=== PATIENT | female | born 1965 ===

== ENCOUNTER → 2018-05-01 12:05 | Outpatient (CLI) | payer OTHER, SELFPAY ==
[2018-05-01 12:36] LABS: Add Manual Diff / Slide Review NO; Basophils Percent Auto 1.3 % (0-2); Eosinophils Percent Auto 6.8 % (2-4); Hematocrit 38.7 % (36-46); Hemoglobin 12.8 g/dL (12.0-16.0); Lymphocytes Percent Auto 32.8 % (25-40); Mean Corpuscular HGB Conc 33.1 % (30-36); Mean Corpuscular Hemoglobin 26.3 PG (26-34); Mean Corpuscular Volume 79.3 fL (80-100); Monocytes Percent Auto 12.6 % (3-14); Neutrophils Absolute Auto 2400 /uL (3000-5900); Neutrophils Percent Auto 46.5 % (50-75); Platelet Count 229 X10^3/uL (150-400); Red Blood Cell Count 4.88 X10^6/uL (4.0-5.2); Red Cell Distribution Width 16.4 % (11.6-14.8); White Blood Cell Count 5.3 X10^3/uL (4.5-11.0)
[2018-05-01 13:00] LABS: Erythrocyte Sedimentation Rate 10 MM/HR (0-20)
[2018-05-01 13:04] LABS: Alanine Aminotransferase 29 IU/L (9-52); Albumin Globulin Ratio 1.4 (1.0-2.8); Alkaline Phosphatase 75 U/L (38-126); Aspartate Aminotransferase 23 IU/L (14-36); BUN Creatinine Ratio 18.8 (6-22); Bilirubin Total 0.5 mg/dL (0.2-1.3); Blood Urea Nitrogen 15 mg/dL (7-17); C-Reactive Protein Quant < 0.5 mg/dL (<1.0); Carbon Dioxide 33 mmol/L (22-32); Chloride 101 mmol/L (98-107); Estimated Glomerular Filt Rate > 60.0 mL/min (>60); Globulin 2.9 g/dL (1.7-4.1); Glucose 95 mg/dL (70-100); HEMOLYSIS < 15 (0-50); Potassium 4.1 mmol/L (3.4-5.1); Sodium 140 mmol/L (137-145); Total Protein 6.9 g/dL (6.3-8.2)
[2018-05-01 13:28] LABS: Thyroid Stimulating Hormone 0.02 uIU/mL (0.47-4.68)
[2018-05-05 23:19] LABS: ANA Screen NEGATIVE (Negative); DNA Antibody Crithidia IFA NEGATIVE (Negative); Rheumatoid Factor <14 IU/mL; Sjogren Antiboday SS-A <1.0 NEG AI (<1.0 NEGATIVE); Sjogren Antiboday SS-B <1.0 NEG AI (<1.0 NEGATIVE); Sm Antibody <1.0 NEG AI (<1.0 NEGATIVE); Sm/RNP Antibody <1.0 NEG AI (<1.0 NEGATIVE)
== END ==
PROVIDERS: PCP Family Medicine; Visit Provider Family Medicine
DX: R42 Dizziness and giddiness (principal)
CPT/HCPCS: 36415; 80053; 84443; 85025; 85651; 86038; 86140; 86430

== ENCOUNTER → 2018-05-06 06:59 | Outpatient (CLI) | payer OTHER, SELFPAY ==
--- NOTE | 2018-05-06 07:01 | DI.US.S_ITS ---
PROCEDURE: US CAROTID DOPPLER BI INDICATIONS: DIZZINESS TECHNIQUE: Color and pulse Doppler interrogation was performed of both carotid systems, with image documentation and velocity measurements. COMPARISON: None. FINDINGS: Stenosis calculations are based on SRU (Society of Radiologists in Ultrasound) criteria. Right side: Brachial blood pressure: 151/100 mm Hg. Common carotid artery peak systolic velocity: 83 cm/sec. Internal carotid artery peak systolic velocity: 79 cm/sec. Internal carotid artery end diastolic velocity: 32 cm/sec. External carotid artery peak systolic velocity: 87 cm/sec. ICA/CCA peak systolic ratio: 0.93. Craig scale imaging description: Normal Percent internal carotid artery stenosis: None. Vertebral artery: Flow direction is antegrade. Left side: Brachial blood pressure: 140/100 mm Hg. Common carotid artery peak systolic velocity: 50 cm/sec. Internal carotid artery peak systolic velocity: 86 cm/sec. Internal carotid artery end diastolic velocity: 44 cm/sec. External carotid artery peak systolic velocity: Not seen ICA/CCA peak systolic ratio: 1.72. Craig scale imaging description: Small echogenic plaques Percent internal carotid artery stenosis: Less than 50%. Vertebral artery: Flow direction is antegrade. IMPRESSION: 1. Hypertension 2. Normal right carotid bifurcation. 3. Minimal plaque left ICA with less than 50% stenosis. 4. Left external carotid artery is not visualized and could be occluded. Dictated by: Luis Trujillo M.D. on 05/06/2018 at 8:15 Approved by: Luis Trujillo M.D. on 05/06/2018 at 8:19
== END ==
PROVIDERS: PCP Family Medicine; Visit Provider Family Medicine
DX: R42 Dizziness and giddiness (principal); I10 Essential (primary) hypertension
CPT/HCPCS: 93880

== ENCOUNTER → 2018-06-14 11:01 | Outpatient (CLI) | payer OTHER, SELFPAY ==
[2018-06-14 13:14] LABS: Thyroid Stimulating Hormone 0.18 uIU/mL (0.47-4.68)
== END ==
PROVIDERS: PCP Family Medicine; Visit Provider Family Medicine
DX: E03.9 Hypothyroidism, unspecified (principal)
CPT/HCPCS: 36415; 84443

== ENCOUNTER → 2018-07-23 07:54 | Outpatient (CLI) | payer OTHER, SELFPAY ==
[2018-07-23 09:33] LABS: Thyroid Stimulating Hormone 0.61 uIU/mL (0.47-4.68)
== END ==
PROVIDERS: PCP Family Medicine; Visit Provider Family Medicine
DX: E03.9 Hypothyroidism, unspecified (principal)
CPT/HCPCS: 36415; 84443

== ENCOUNTER → 2018-08-21 09:00 | Outpatient (CLI) | payer OTHER, SELFPAY | PROVIDERS: PCP Family Medicine | DX: Z23 Encounter for immunization (principal) | CPT/HCPCS: 90471; 90686 ==

== ENCOUNTER 2018-12-10 16:15 | Emergency (ER) | payer OTHER, SELFPAY ==
[2018-12-10 16:25] VITALS: BP 173/104; PULSE 87; RESP 19; TEMP 36.1; O2SAT 98
--- NOTE | 2018-12-10 16:34 | ED.GENADULT ---
HPI - General Adult <Tejinder NavarroMINH - Last Filed: 12/10/18 21:47> General Chief complaint: Hypertension Stated complaint: HEADACHE JAW PAIN Time Seen by Provider: 12/10/18 16:16 Source: patient Mode of arrival: ambulatory Limitations: no limitations History of Present Illness HPI narrative: 53-year-old female with history of tongue cancer and hypertension here for complaint of having headache over the past couple of days. She also reports having left jaw pain. She reports the headache as a pounding headache she also reports having some nausea however no vomiting she is states that she is able to tolerate p.o. intake. She denies any fevers however she does not have a thermometer and she does states she has had chills. She reports of having a somewhat having a little bit of chest pain into the left ribcage area that has been on off for the past couple days as well. She denies any cough. She does report having generalized malaise and body aches. She reports that she has a friend that was sick last week with similar symptoms. She took 1 of her pain medications prior to arrival and states that it did reduce her headache some. She reports that she had some labs drawn that were ordered by her primary care provider today which included a CBC CMP and a TSH. She denies any shortness of breath. She is ambulatory to the emergency room. Related Data Previous Rx's Medication Instructions Recorded Disabled Parking Permit . #1 11/02/16 [ENSURE ] 4 scoopful PO TID #10 can 12/21/16 clonazepam 0.5 mg PO HS #90 tab 05/01/17 betamethasone dipropionate 0 TOPICAL Q DAY #15 gm 05/02/17 furosemide [Lasix] 20 mg PO QDAY #30 tab 10/29/17 pantoprazole [Protonix] 40 mg PO QDAY #90 tab 02/14/18 buspirone 15 mg tablet 15 mg PO BID #180 tab 03/19/18 dexamethasone 2 mg tablet See Rx Instructions PO Q6H #30 tab 04/15/18 ibuprofen 600 mg PO BID PRN #180 tab 06/10/18 levothyroxine 88 mcg tablet 88 mcg PO DAILY #90 tab 06/18/18 duloxetine 30 mg capsule,delayed 30 mg PO DAILY #90 cap 07/25/18 release metoprolol succinate [Toprol XL] 0 PO BID #90 tab 10/09/18 hydrocodone 7.5 mg-acetaminophen 15 ml PO Q4HP PRN #300 ml 11/07/18 325 mg/15 mL oral solution Allergies Allergy/AdvReac Type Severity Reaction Status Date / Time citalopram [CITALOPRAM] Allergy Severe CHEST PAIN Verified 05/29/18 12:06 propranolol [PROPRANOLOL] Allergy Severe CHEST PAIN Verified 05/29/18 12:06 AND HEADACHE succinylcholine Allergy Severe rhabdomyolo Verified 05/29/18 12:06 [SUCCINYLCHOLINE] sis DEBORA Inhibitors Allergy Mild COUGHING Verified 05/29/18 12:06 [DEBORA INHIBITORS] amoxicillin [AMOXICILLIN] Allergy Mild RASH Verified 05/29/18 12:06 lisinopril [LISINOPRIL] Allergy Mild COUGHING Verified 05/29/18 12:06 oxycodone [OXYCODONE] Allergy Mild headache Verified 05/29/18 12:06 paroxetine [PAROXETINE] Allergy Mild SEVERE Verified 05/29/18 12:06 HEADACHE Penicillins [PENICILLINS] Allergy Mild RASH Verified 05/29/18 12:06 pravastatin [PRAVASTATIN] Allergy Mild MUSCLE Verified 05/29/18 12:06 WEAKNESS prednisone [PREDNISONE] Allergy Mild PROJECTILE Verified 05/29/18 12:06 VOMITING sertraline [SERTRALINE] Allergy Mild WT GAIN Verified 05/29/18 12:06 simvastatin [SIMVASTATIN] Allergy Mild LEG PAIN Verified 05/29/18 12:06 Sulfa (Sulfonamide Allergy Mild JOINT PAIN Verified 05/29/18 12:06 Antibiotics) UPPER EXT. [SULFA (SULFONAMIDE ANTIBIOTICS)] Review of Systems <MINH Espino - Last Filed: 12/10/18 21:47> Constitutional Reports chills, Denies fatigue and Reports malaise Eyes Denies change in vision, Denies eye discharge, Denies irritation and Denies loss of vision ENT Ears, Nose, Mouth, and Throat: Denies change in voice, Denies neck pain and Denies sore throat Cardiovascular Reports chest pain, Denies dyspnea and Denies dyspnea on exertion Respiratory Denies cough, Denies dyspnea, Denies dyspnea on exertion and Denies wheezing Gastrointestinal Gastrointestinal: Denies abdominal pain, Denies change in bowel habits, Denies diarrhea, Reports nausea and Denies vomiting Genitourinary Denies hematuria, Denies flank pain, Denies urinary incontinence and Denies urinary urgency Musculoskeletal Denies neck pain Integumentary/Breasts Denies pruritus, Denies erythema, Denies rash and Denies wounds Neurologic Denies confusion and Denies loss of vision Psychiatric Denies anxiety, Denies confusion, Denies depression, Denies homicidal ideation and Denies suicidal ideation Endocrine Denies fatigue and Denies flushing Hematologic/Lymphatic Denies easy bruising Allergic/Immunologic Denies wheezing PFSH <MINH Espino - Last Filed: 12/10/18 21:47> Medical History GERD (gastroesophageal reflux disease) (Chronic) Hypertension (Chronic) Hypothyroidism (Chronic) Recurrent tongue cancer (Resolved 2009) Tongue cancer (Resolved 1997) Surgical History History of oral surgery (Resolved 1997) History of oral surgery (Resolved 2009) Status post hysterectomy (Resolved 08/2009) Family History Brother Diabetes mellitus CAD (coronary artery disease) Grandfather Diabetes mellitus Mother Diabetes mellitus CAD (coronary artery disease) Family History Brother Diabetes mellitus CAD (coronary artery disease) Grandfather Diabetes mellitus Mother Diabetes mellitus CAD (coronary artery disease) Exam <MINH Espino - Last Filed: 12/10/18 21:47> Initial Vital Signs Initial Vital Signs: Vital Signs Temperature 97.0 F L 12/10/18 16:25 Pulse Rate 87 12/10/18 16:25 Respiratory Rate 19 12/10/18 16:25 Blood Pressure 173/104 H 12/10/18 16:25 Pulse Oximetry 98 12/10/18 16:25 Const General: cooperative and well developed Nutritional Appearance: well nourished Orientation: alert, awake, oriented x3 and not confused HENMT Ears: external ears normal and TM's normal bilaterally Nose: TMJ nontender and No TMJ clicking Mouth: No oral mucosae normal (Mucous membrane pink and moist surgical changes to oropharynx) and moist mucous membranes Throat: posterior oropharynx normal Eyes Conjunctivae: conjunctivae normal Sclera: sclerae normal Pupils: PERRL EOM: EOM intact bilaterally Resp Effort & Inspection: normal respiratory effort, able to speak in complete sentences, no respiratory distress and no use of accessory muscles Auscultation: clear to auscultation bilaterally, no rales, no rhonchi and no wheezes Cardio Rate: regular rate Rhythm: regular rhythm Heart Sounds: no click, no gallops, no murmurs and no rubs GI Inspection: non-distended Palpation: soft, no hepatosplenomegaly, No guarding, No pulsatile mass and No tender Auscultation: normal bowel sounds Neuro General: alert, oriented x3, gait normal and no focal motor deficits Speech: speech normal <Matt Phillips DO - Last Filed: 12/11/18 18:20> Initial Vital Signs Initial Vital Signs: Vital Signs Temperature 97.0 F L 12/10/18 16:25 Pulse Rate 87 12/10/18 16:25 Respiratory Rate 19 12/10/18 16:25 Blood Pressure 173/104 H 12/10/18 16:25 Pulse Oximetry 98 12/10/18 16:25 Course <MINH Espino - Last Filed: 12/10/18 21:47> Orders Ordered: Discontinued Medications Sodium Chloride (Normal Saline 0.9%) 1,000 mls @ 1,000 mls/hr IV BOLUS ONE Stop: 12/10/18 17:44 Last Admin: 12/10/18 17:04 Dose: Not Given Ketorolac Tromethamine (Toradol) 30 mg IV NOW ONE Stop: 12/10/18 16:48 Last Admin: 12/10/18 17:04 Dose: Not Given Ondansetron HCl (Zofran) 4 mg IV NOW ONE Stop: 12/10/18 16:48 Last Admin: 12/10/18 17:05 Dose: Not Given Vital Signs - 8 hr 12/10/18 16:25 12/10/18 17:01 12/10/18 18:07 Temperature 97.0 F L Pulse Rate 87 78 81 Respiratory Rate 19 14 Blood Pressure 173/104 H Blood Pressure [Left Arm] 154/101 H 143/98 H Pulse Oximetry 98 99 97 <Matt Phillips DO - Last Filed: 12/11/18 18:20> Orders Ordered: Discontinued Medications Sodium Chloride (Normal Saline 0.9%) 1,000 mls @ 1,000 mls/hr IV BOLUS ONE Stop: 12/10/18 17:44 Last Admin: 12/10/18 17:04 Dose: Not Given Ketorolac Tromethamine (Toradol) 30 mg IV NOW ONE Stop: 12/10/18 16:48 Last Admin: 12/10/18 17:04 Dose: Not Given Ondansetron HCl (Zofran) 4 mg IV NOW ONE Stop: 12/10/18 16:48 Last Admin: 12/10/18 17:05 Dose: Not Given Vital Signs - 8 hr 12/10/18 16:25 12/10/18 17:01 12/10/18 18:07 Temperature 97.0 F L Pulse Rate 87 78 81 Respiratory Rate 19 14 Blood Pressure 173/104 H Blood Pressure [Left Arm] 154/101 H 143/98 H Pulse Oximetry 98 99 97 Medical Decision Making <MINH Espino - Last Filed: 12/10/18 21:47> Lab Data Lab Results 12/10/18 12/10/18 Range/Units 17:00 17:20 Total Creatine Kinase 86 (30-135) U/L CK-MB (CK-2) TNP CK-MB (CK-2) Rel Index TNP Troponin I < 0.012 (0.01-0.034) ng/mL Influenza A & B (PCR) Negative (Negative) Urine Dip Bedside Urine Glucose Negative Bedside Urine Bilirubin - Negative Bedside Urine Ketone - Negative Urine Specific [place] 1.030 Bedside Urine Occult Blood - Negative Bedside Urine pH 6.0 Bedside Urine Protein - Negative Bedside Urine Urobilinogen - Negative Bedside Urine Nitrite - Negative Bedside Urine Leukocytes - Negative Esterase Point of care testing: Urine Dip Bedside Urine Glucose Negative Bedside Urine Bilirubin - Negative Bedside Urine Ketone - Negative Urine Specific [place] 1.030 Bedside Urine Occult Blood - Negative Bedside Urine pH 6.0 Bedside Urine Protein - Negative Bedside Urine Urobilinogen - Negative Bedside Urine Nitrite - Negative Bedside Urine Leukocytes - Negative Esterase Imaging Data Chest x-ray: Radiologist's impression: [address] [address] XRay Report Signed Patient: Naye Muñoz RMR#: [id number] : 1965Acct:[id number] Age/Sex: 53 / FDate of Service: 12/10/18 Loc: ED Accession Number: [id number] Procedure: XR chest 1V Ordering Provider: Tejinder Navarro PROCEDURE: XR CHEST 1V INDICATIONS: Jaw pain and chest pain TECHNIQUE: One view of the chest was acquired. COMPARISON: [facility], CR, CHEST 2 VIEW, 03/15/2017, 12:28. FINDINGS: Surgical changes and devices: Surgical clips at the base of the left neck. Left breast lobectomy clips. Lungs and pleura: Lungs are clear. No pleural effusions or pneumothorax. Mediastinum: Mediastinal contours appear normal. Heart size is normal. Bones and chest wall: No suspicious bony lesions. Overlying soft tissues appear unremarkable. IMPRESSION: No acute process. Dictated by: Alysha Dotson M.D. on 12/10/2018 at 17:34 Approved by: Alysha Dotson M.D. on 12/10/2018 at 17:35 CT scan - head: Radiologist's impression: [place] [address] CT Scan Report Signed Patient: Naye Muñoz RMR#: [id number] : 1965Acct:[id number] Age/Sex: 53 / FDate of Service: 12/10/18 Loc: ED Accession Number: [id number] Procedure: CT head/brain wo con Ordering Provider: Tejinder Navarro PROCEDURE: CT HEAD/BRAIN WO CON INDICATIONS: Headache and jaw pain TECHNIQUE: Noncontrast 4.5 mm thick angled axial sections acquired from the foramen magnum to the vertex, with coronal and sagittal reformats. For radiation dose reduction, the following was used: automated exposure control, adjustment of mA and/or kV according to patient size. COMPARISON: [facility], CT, HEAD WITHOUT CONTRAST, 07/27/2015, 16:09. FINDINGS: Image quality: Excellent. CSF spaces: Basal cisterns are patent. No extra-axial fluid collections. Ventricles are normal in size and shape. Brain: No midline shift. No intracranial masses or hemorrhage. Craig-white matter interface is normal. Skull and face: Calvarium and visualized facial bones are intact, without suspicious lesions. Sinuses: Visualized sinuses and mastoids are clear. IMPRESSION: No CT evidence of acute intracranial process. Dictated by: Alysha Dotson M.D. on 12/10/2018 at 17:36 Approved by: Alysha Dotson M.D. on 12/10/2018 at 17:37 ECG Data Interpretation: EKG shows normal sinus rhythm with no ST elevation or depression. No ectopy. Ventricular rate of 85. Pr interval of 166. QRS duration of 88. QTC of 405. MDM Narrative Medical decision making narrative: CT of the head was obtained was negative for any acute findings. Chest x-ray was also obtained was also negative for any acute findings. EKG shows sinus rhythm with no ST elevation or depression. No ectopy. CBC and Chem panel was obtained prior to arrival and were unremarkable. TSH was also obtained and was also unremarkable. Urinalysis was negative for urinary tract infection. Cardiac enzymes were obtained were normal. Influenza swab was obtained was negative. Blood pressure was elevated today in the emergency room. Most likely is secondary to headache however will have follow-up with primary care provider for further evaluation of a medication regimen. Will treat conservatively as viral illness at this point with [id number] Tylenol and plenty of fluids. Follow up with primary care provider next couple days for re-evaluation. <Matt Phillips DO - Last Filed: 12/11/18 18:20> Lab Data Lab Results 12/10/18 12/10/18 Range/Units 17:00 17:20 Total Creatine Kinase 86 (30-135) U/L CK-MB (CK-2) TNP CK-MB (CK-2) Rel Index TNP Troponin I < 0.012 (0.01-0.034) ng/mL Influenza A & B (PCR) Negative (Negative) Urine Dip Bedside Urine Glucose Negative Bedside Urine Bilirubin - Negative Bedside Urine Ketone - Negative Urine Specific [place] 1.030 Bedside Urine Occult Blood - Negative Bedside Urine pH 6.0 Bedside Urine Protein - Negative Bedside Urine Urobilinogen - Negative Bedside Urine Nitrite - Negative Bedside Urine Leukocytes - Negative Esterase Point of care testing: Urine Dip Bedside Urine Glucose Negative Bedside Urine Bilirubin - Negative Bedside Urine Ketone - Negative Urine Specific [place] 1.030 Bedside Urine Occult Blood - Negative Bedside Urine pH 6.0 Bedside Urine Protein - Negative Bedside Urine Urobilinogen - Negative Bedside Urine Nitrite - Negative Bedside Urine Leukocytes - Negative Esterase Discharge Plan Departure Patient Disposition: Home Clinical Impression: Viral illness Discharge Date/Time: 12/10/18 18:25 Interventions: ED Discharge Assessment Last Done: 12/10/18 18:24 Instructions: DI for Viral Syndrome Activity Restrictions/Additional Instructions: Laboratory results today and imaging were unremarkable. EKG today was normal. Signs and symptoms presents as a viral illness. Use Tylenol as needed for discomfort and headache. Plenty of fluids and rest. Follow up with primary care provider next few days for re-evaluation. Blood pressure was elevated today this may be secondary to discomfort however discuss with primary care provider within eye changes need to be made to medication regimen. For any worsening symptoms return to the emergency room. Prescriptions: No Action Disabled Parking Permit . Qty: 1 RF: 0 [ENSURE ] 4 scoopful PO TID Qty: 10 RF: 11 clonazepam 0.5 MG tablet 0.5 mg PO HS Qty: 90 RF: 5 betamethasone dipropionate 0.05 % ointment Topical Q DAY Qty: 15 RF: 3 furosemide [Lasix] 20 MG tablet 20 mg PO QDAY Qty: 30 RF: 5 pantoprazole [Protonix] 40 mg tablet,delayed release (DR/EC) 40 mg PO QDAY Qty: 90 RF: 3 buspirone 15 mg tablet 15 mg PO BID Qty: 180 RF: 3 dexamethasone 2 mg tablet See Rx Instructions PO Q6H Qty: 30 RF: 1 ibuprofen 600 mg tablet 600 mg PO BID PRNQty: 180 RF: 3 levothyroxine 88 mcg tablet 88 mcg PO DAILY Qty: 90 RF: 3 duloxetine 30 mg capsule,delayed release(DR/EC) 30 mg PO DAILY Qty: 90 RF: 3 metoprolol succinate [Toprol XL] 25 mg tablet extended release 24 hr PO BID Qty: 90 RF: 6 hydrocodone-acetaminophen 7.5-325 mg/15 mL solution 15 ml PO Q4HP PRN (Reason: pain) Qty: 300 RF: 0 Referrals: Shiv Slaughter MD [Primary Care Provider] - <Matt Phillips DO - Last Filed: 12/11/18 18:20> Cosign ED Attending Veeature Attestation: I was available for consultation during this patient's emergency department encounter
--- NOTE | 2018-12-10 16:45 | DI.CT.S_ITS ---
PROCEDURE: CT HEAD/BRAIN WO CON INDICATIONS: Headache and jaw pain TECHNIQUE: Noncontrast 4.5 mm thick angled axial sections acquired from the foramen magnum to the vertex, with coronal and sagittal reformats. For radiation dose reduction, the following was used: automated exposure control, adjustment of mA and/or kV according to patient size. COMPARISON: [facility], CT, HEAD WITHOUT CONTRAST, 07/27/2015, 16:09. FINDINGS: Image quality: Excellent. CSF spaces: Basal cisterns are patent. No extra-axial fluid collections. Ventricles are normal in size and shape. Brain: No midline shift. No intracranial masses or hemorrhage. Craig-white matter interface is normal. Skull and face: Calvarium and visualized facial bones are intact, without suspicious lesions. Sinuses: Visualized sinuses and mastoids are clear. IMPRESSION: No CT evidence of acute intracranial process. Dictated by: Alysha Dotson M.D. on 12/10/2018 at 17:36 Approved by: Alysha Dotson M.D. on 12/10/2018 at 17:37
--- NOTE | 2018-12-10 16:45 | DI.RAD.S_ITS ---
PROCEDURE: XR CHEST 1V INDICATIONS: Jaw pain and chest pain TECHNIQUE: One view of the chest was acquired. COMPARISON: [facility], , CHEST 2 VIEW, 03/15/2017, 12:28. FINDINGS: Surgical changes and devices: Surgical clips at the base of the left neck. Left breast lobectomy clips. Lungs and pleura: Lungs are clear. No pleural effusions or pneumothorax. Mediastinum: Mediastinal contours appear normal. Heart size is normal. Bones and chest wall: No suspicious bony lesions. Overlying soft tissues appear unremarkable. IMPRESSION: No acute process. Dictated by: Alysha Dotson M.D. on 12/10/2018 at 17:34 Approved by: Alysha Dotson M.D. on 12/10/2018 at 17:35
[2018-12-10 17:01] VITALS: BP 154/101; PULSE 78; O2SAT 99
--- NOTE | 2018-12-10 17:05 | PC.NURSE ---
Pt declining IV start after 2 attempts. Provider aware.
--- NOTE | 2018-12-10 17:21 | ED_ITS ---
HPI - General Adult <Tejinder NavarroMINH - Last Filed: 12/10/18 21:47> General Chief complaint: Hypertension Stated complaint: HEADACHE JAW PAIN Time Seen by Provider: 12/10/18 16:16 Source: patient Mode of arrival: ambulatory Limitations: no limitations History of Present Illness HPI narrative: 53-year-old female with history of tongue cancer and hypertension here for complaint of having headache over the past couple of days. She also reports having left jaw pain. She reports the headache as a pounding headache she also reports having some nausea however no vomiting she is states that she is able to tolerate p.o. intake. She denies any fevers however she does not have a thermometer and she does states she has had chills. She reports of having a somewhat having a little bit of chest pain into the left ribcage area that has been on off for the past couple days as well. She denies any cough. She does report having generalized malaise and body aches. She reports that she has a f riend that was sick last week with similar symptoms. She took 1 of her pain medications prior to arrival and states that it did reduce her headache some. She reports that she had some labs drawn that were ordered by her primary care provider today which included a CBC CMP and a TSH. She denies any shortness of breath. She is ambulatory to the emergency room. Related Data Previous Rx's Medication Instructions Recorded Disabled Parking Permit . #1 11/02/16 [ENSURE ] 4 scoopful PO TID #10 can 12/21/16 clonazepam 0.5 mg PO HS #90 tab 05/01/17 betamethasone dipropionate 0 TOPICAL Q DAY #15 gm 05/02/17 furosemide [Lasix] 20 mg PO QDAY #30 tab 10/29/17 pantoprazole [Protonix] 40 mg PO QDAY #90 tab 02/14/18 buspirone 15 mg tablet 15 mg PO BID #180 tab 03/19/18 dexamethasone 2 mg tablet See Rx Instructions PO Q6H #30 tab 04/15/18 ibuprofen 600 mg PO BID PRN #180 tab 06/10/18 levothyroxine 88 mcg tablet 88 mcg PO DAILY #90 tab 06/18/18 duloxetine 30 mg capsule,delayed 30 mg PO DAILY #90 cap 07/25/18 release metoprolol succinate [Toprol XL] 0 PO BID #90 tab 10/09/18 hydrocodone 7.5 mg-acetaminophen 15 ml PO Q4HP PRN #300 ml 11/07/18 325 mg/15 mL oral solution Allergies Allergy/AdvReac Type Severity Reaction Status Date / Time citalopram [CITALOPRAM] Allergy Severe CHEST PAIN Verified 05/29/18 12:06 propranolol [PROPRANOLOL] Allergy Severe CHEST PAIN Verified 05/29/18 12:06 AND HEADACHE succinylcholine Allergy Severe rhabdomyolo Verified 05/29/18 12:06 [SUCCINYLCHOLINE] sis DEBORA Inhibitors Allergy Mild COUGHING Verified 05/29/18 12:06 [DEBORA INHIBITORS] amoxicillin [AMOXICILLIN] Allergy Mild RASH Verified 05/29/18 12:06 lisinopril [LISINOPRIL] Allergy Mild COUGHING Verified 05/29/18 12:06 oxycodone [OXYCODONE] Allergy Mild headache Verified 05/29/18 12:06 paroxetine [PAROXETINE] Allergy Mild SEVERE Verified 05/29/18 12:06 HEADACHE Penicillins [PENICILLINS] Allergy Mild RASH Verified 05/29/18 12:06 pravastatin [PRAVASTATIN] Allergy Mild MUSCLE Verified 05/29/18 12:06 WEAKNESS prednisone [PREDNISONE] Allergy Mild PROJECTILE Verified 05/29/18 12:06 VOMITING sertraline [SERTRALINE] Allergy Mild WT GAIN Verified 05/29/18 12:06 simvastatin [SIMVASTATIN] Allergy Mild LEG PAIN Verified 05/29/18 12:06 Sulfa (Sulfonamide Allergy Mild JOINT PAIN Verified 05/29/18 12:06 Antibiotics) UPPER EXT. [SULFA (SULFONAMIDE ANTIBIOTICS)] Review of Systems <MINH Espino - Last Filed: 12/10/18 21:47> Constitutional Reports chills, Denies fatigue and Reports malaise Eyes Denies change in vision, Denies eye discharge, Denies irritation and Denies loss of vision ENT Ears, Nose, Mouth, and Throat: Denies change in voice, Denies neck pain and Denies sore throat Cardiovascular Reports chest pain, Denies dyspnea and Denies dyspnea on exertion Respiratory Denies cough, Denies dyspnea, Denies dyspnea on exertion and Denies wheezing Gastrointestinal Gastrointestinal: Denies abdominal pain, Denies change in bowel habits, Denies diarrhea, Reports nausea and Denies vomiting Genitourinary Denies hematuria, Denies flank pain, Denies urinary incontinence and Denies urinary urgency Musculoskeletal Denies neck pain Integumentary/Breasts Denies pruritus, Denies erythema, Denies rash and Denies wounds Neurologic Denies confusion and Denies loss of vision Psychiatric Denies anxiety, Denies confusion, Denies depression, Denies homicidal ideation and Denies suicidal ideation Endocrine Denies fatigue and Denies flushing Hematologic/Lymphatic Denies easy bruising Allergic/Immunologic Denies wheezing PFSH <MINH Espino - Last Filed: 12/10/18 21:47> Medical History GERD (gastroesophageal reflux disease) (Chronic) Hypertension (Chronic) Hypothyroidism (Chronic) Recurrent tongue cancer (Resolved 2009) Tongue cancer (Resolved 1997) Surgical History History of oral surgery (Resolved 1997) History of oral surgery (Resolved 2009) Status post hysterectomy (Resolved 08/2009) Family History Brother Diabetes mellitus CAD (coronary artery disease) Grandfather Diabetes mellitus Mother Diabetes mellitus CAD (coronary artery disease) Family History Brother Diabetes mellitus CAD (coronary artery disease) Grandfather Diabetes mellitus Mother Diabetes mellitus CAD (coronary artery disease) Exam <MINH Espino - Last Filed: 12/10/18 21:47> Initial Vital Signs Initial Vital Signs: Vital Signs Temperature 97.0 F L 12/10/18 16:25 Pulse Rate 87 12/10/18 16:25 Respiratory Rate 19 12/10/18 16:25 Blood Pressure 173/104 H 12/10/18 16:25 Pulse Oximetry 98 12/10/18 16:25 Const General: cooperative and well developed Nutritional Appearance: well nourished Orientation: alert, awake, oriented x3 and not confused HENMT Ears: external ears normal and TM's normal bilaterally Nose: TMJ nontender and No TMJ clicking Mouth: No oral mucosae normal (Mucous membrane pink and moist surgical changes to oropharynx) and moist mucous membranes Throat: posterior oropharynx normal Eyes Conjunctivae: conjunctivae normal Sclera: sclerae normal Pupils: PERRL EOM: EOM intact bilaterally Resp Effort & Inspection: normal respiratory effort, able to speak in complete sentences, no respiratory distress and no use of accessory muscles Auscultation: clear to auscultation bilaterally, no rales, no rhonchi and no wheezes Cardio Rate: regular rate Rhythm: regular rhythm Heart Sounds: no click, no gallops, no murmurs and no rubs GI Inspection: non-distended Palpation: soft, no hepatosplenomegaly, No guarding, No pulsatile mass and No tender Auscultation: normal bowel sounds Neuro General: alert, oriented x3, gait normal and no focal motor deficits Speech: speech normal <Matt Phillips DO - Last Filed: 12/11/18 18:20> Initial Vital Signs Initial Vital Signs: Vital Signs Temperature 97.0 F L 12/10/18 16:25 Pulse Rate 87 12/10/18 16:25 Respiratory Rate 19 12/10/18 16:25 Blood Pressure 173/104 H 12/10/18 16:25 Pulse Oximetry 98 12/10/18 16:25 Course <MINH Espino - Last Filed: 12/10/18 21:47> Orders Ordered: Discontinued Medications Sodium Chloride (Normal Saline 0.9%) 1,000 mls @ 1,000 mls/hr IV BOLUS ONE Stop: 12/10/18 17:44 Last Admin: 12/10/18 17:04 Dose: Not Given Ketorolac Tromethamine (Toradol) 30 mg IV NOW ONE Stop: 12/10/18 16:48 Last Admin: 12/10/18 17:04 Dose: Not Given Ondansetron HCl (Zofran) 4 mg IV NOW ONE Stop: 12/10/18 16:48 Last Admin: 12/10/18 17:05 Dose: Not Given Vital Signs - 8 hr 12/10/18 16:25 12/10/18 17:01 12/10/18 18:07 Temperature 97.0 F L Pulse Rate 87 78 81 Respiratory Rate 19 14 Blood Pressure 173/104 H Blood Pressure [Left Arm] 154/101 H 143/98 H Pulse Oximetry 98 99 97 <Matt Phillips DO - Last Filed: 12/11/18 18:20> Orders Ordered: Discontinued Medications Sodium Chloride (Normal Saline 0.9%) 1,000 mls @ 1,000 mls/hr IV BOLUS ONE Stop: 12/10/18 17:44 Last Admin: 12/10/18 17:04 Dose: Not Given Ketorolac Tromethamine (Toradol) 30 mg IV NOW ONE Stop: 12/10/18 16:48 Last Admin: 12/10/18 17:04 Dose: Not Given Ondansetron HCl (Zofran) 4 mg IV NOW ONE Stop: 12/10/18 16:48 Last Admin: 12/10/18 17:05 Dose: Not Given Vital Signs - 8 hr 12/10/18 16:25 12/10/18 17:01 12/10/18 18:07 Temperature 97.0 F L Pulse Rate 87 78 81 Respiratory Rate 19 14 Blood Pressure 173/104 H Blood Pressure [Left Arm] 154/101 H 143/98 H Pulse Oximetry 98 99 97 Medical Decision Making <MINH Espino - Last Filed: 12/10/18 21:47> Lab Data Lab Results 12/10/18 12/10/18 Range/Units 17:00 17:20 Total Creatine Kinase 86 (30-135) U/L CK-MB (CK-2) TNP CK-MB (CK-2) Rel Index TNP Troponin I < 0.012 (0.01-0.034) ng/mL Influenza A & B (PCR) Negative (Negative) Urine Dip Bedside Urine Glucose Negative Bedside Urine Bilirubin - Negative Bedside Urine Ketone - Negative Urine Specific [place] 1.030 Bedside Urine Occult Blood - Negative Bedside Urine pH 6.0 Bedside Urine Protein - Negative Bedside Urine Urobilinogen - Negative Bedside Urine Nitrite - Negative Bedside Urine Leukocytes - Negative Esterase Point of care testing: Urine Dip Bedside Urine Glucose Negative Bedside Urine Bilirubin - Negative Bedside Urine Ketone - Negative Urine Specific [place] 1.030 Bedside Urine Occult Blood - Negative Bedside Urine pH 6.0 Bedside Urine Protein - Negative Bedside Urine Urobilinogen - Negative Bedside Urine Nitrite - Negative Bedside Urine Leukocytes - Negative Esterase Imaging Data Chest x-ray: Radiologist's impression: [address] [id number] XRay Report Signed Patient: Naye Muñoz RMR#: [id number] : 1965Acct:[id number] Age/Sex: 53 / FDate of Service: 12/10/18 Loc: ED Accession Number: [id number] Procedure: XR chest 1V Ordering Provider: Tejinder Navarro PROCEDURE: XR CHEST 1V INDICATIONS: Jaw pain and chest pain TECHNIQUE: One view of the chest was acquired. COMPARISON: [facility], CR, CHEST 2 VIEW, 03/15/2017, 12:28. FINDINGS: Surgical changes and devices: Surgical clips at the base of the left neck. Left breast lobectomy clips. Lungs and pleura: Lungs are clear. No pleural effusions or pneumothorax. Mediastinum: Mediastinal contours appear normal. Heart size is normal. Bones and chest wall: No suspicious bony lesions. Overlying soft tissues appear unremarkable. IMPRESSION: No acute process. Dictated by: Alysha Dotson M.D. on 12/10/2018 at 17:34 Approved by: Alysha Dotson M.D. on 12/10/2018 at 17:35 CT scan - head: Radiologist's impression: [place] [address] CT Scan Report Signed Patient: Naye Muñoz RMR#: [id number] : 1965Acct:[id number] Age/Sex: 53 / FDate of Service: 12/10/18 Loc: ED Accession Number: [id number] Procedure: CT head/brain wo con Ordering Provider: Tejinder Navarro PROCEDURE: CT HEAD/BRAIN WO CON INDICATIONS: Headache and jaw pain TECHNIQUE: Noncontrast 4.5 mm thick angled axial sections acquired from the foramen magnum to the vertex, with coronal and sagittal reformats. For radiation dose reduction, the following was used: automated exposure control, adjustment of mA and/or kV according to patient size. COMPARISON: [facility], CT, HEAD WITHOUT CONTRAST, 07/27/2015, 16:09. FINDINGS: Image quality: Excellent. CSF spaces: Basal cisterns are patent. No extra-axial fluid collections. Ventricles are normal in size and shape. Brain: No midline shift. No intracranial masses or hemorrhage. Craig-white matter interface is normal. Skull and face: Calvarium and visualized facial bones are intact, without suspicious lesions. Sinuses: Visualized sinuses and mastoids are clear. IMPRESSION: No CT evidence of acute intracranial process. Dictated by: Alysha Dotson M.D. on 12/10/2018 at 17:36 Approved by: Alysha Dotson M.D. on 12/10/2018 at 17:37 ECG Data Interpretation: EKG shows normal sinus rhythm with no ST elevation or depression. No ectopy. Ventricular rate of 85. Pr interval of 166. QRS duration of 88. QTC of 405. MDM Narrative Medical decision making narrative: CT of the head was obtained was negative for any acute findings. Chest x-ray was also obtained was also negative for any acute findings. EKG shows sinus rhythm with no ST elevation or depression. No ectopy. CBC and Chem panel was obtained prior to arrival and were unremarkable. TSH was also obtained and was also unremarkable. Urinalysis was negative for urinary tract infection. Cardiac enzymes were obtained were normal. Influenza swab was obtained was negative. Blood pressure was elevated today in the emergency room. Most likely is secondary to headache however will have follow- up with primary care provider for further evaluation of a medication regimen. Will treat conservatively as viral illness at this point with [id number] Tylenol and plenty of fluids. Follow up with primary care provider next couple days for re-evaluation. <Matt Phillips, - Last Filed: 12/11/18 18:20> Lab Data Lab Results 12/10/18 12/10/18 Range/Units 17:00 17:20 Total Creatine Kinase 86 (30-135) U/L CK-MB (CK-2) TNP CK-MB (CK-2) Rel Index TNP Troponin I < 0.012 (0.01-0.034) ng/mL Influenza A & B (PCR) Negative (Negative) Urine Dip Bedside Urine Glucose Negative Bedside Urine Bilirubin - Negative Bedside Urine Ketone - Negative Urine Specific [place] 1.030 Bedside Urine Occult Blood - Negative Bedside Urine pH 6.0 Bedside Urine Protein - Negative Bedside Urine Urobilinogen - Negative Bedside Urine Nitrite - Negative Bedside Urine Leukocytes - Negative Esterase Point of care testing: Urine Dip Bedside Urine Glucose Negative Bedside Urine Bilirubin - Negative Bedside Urine Ketone - Negative Urine Specific [place] 1.030 Bedside Urine Occult Blood - Negative Bedside Urine pH 6.0 Bedside Urine Protein - Negative Bedside Urine Urobilinogen - Negative Bedside Urine Nitrite - Negative Bedside Urine Leukocytes - Negative Esterase Discharge Plan Departure Patient Disposition: Home Clinical Impression: Viral illness Discharge Date/Time: 12/10/18 18:25 Interventions: ED Discharge Assessment Last Done: 12/10/18 18:24 Instructions: DI for Viral Syndrome Activity Restrictions/Additional Instructions: Laboratory results today and imaging were unremarkable. EKG today was normal. Signs and symptoms presents as a viral illness. Use Tylenol as needed for discomfort and headache. Plenty of fluids and rest. Follow up with primary care provider next few days for re-evaluation. Blood pressure was elevated today this may be secondary to discomfort however discuss with primary care provider within eye changes need to be made to medication regimen. For any worsening symptoms return to the emergency room. Prescriptions: No Action Disabled Parking Permit . Qty: 1 RF: 0 [ENSURE ] 4 scoopful PO TID Qty: 10 RF: 11 clonazepam 0.5 MG tablet 0.5 mg PO HS Qty: 90 RF: 5 betamethasone dipropionate 0.05 % ointment Topical Q DAY Qty: 15 RF: 3 furosemide [Lasix] 20 MG tablet 20 mg PO QDAY Qty: 30 RF: 5 pantoprazole [Protonix] 40 mg tablet,delayed release (DR/EC) 40 mg PO QDAY Qty: 90 RF: 3 buspirone 15 mg tablet 15 mg PO BID Qty: 180 RF: 3 dexamethasone 2 mg tablet See Rx Instructions PO Q6H Qty: 30 RF: 1 ibuprofen 600 mg tablet 600 mg PO BID PRNQty: 180 RF: 3 levothyroxine 88 mcg tablet 88 mcg PO DAILY Qty: 90 RF: 3 duloxetine 30 mg capsule,delayed release(DR/EC) 30 mg PO DAILY Qty: 90 RF: 3 metoprolol succinate [Toprol XL] 25 mg tablet extended release 24 hr PO BID Qty: 90 RF: 6 hydrocodone-acetaminophen 7.5-325 mg/15 mL solution 15 ml PO Q4HP PRN (Reason: pain) Qty: 300 RF: 0 Referrals: Shiv Slaughter MD [Primary Care Provider] - <Matt Phillips DO - Last Filed: 12/11/18 18:20> [facility] I was available for consultation during this patient's emergency department encounter
[2018-12-10 17:27] LABS: Influenza A and B by PCR Rapid Negative (Negative)
[2018-12-10 17:42] LABS: Creatine Kinase 86 U/L (30-135)
[2018-12-10 17:55] LABS: Troponin I < 0.012 ng/mL (0.01-0.034)
--- NOTE | 2018-12-10 18:06 | PC.NURSE ---
Chest pain now resolved, per patient. Still having pain into the left jaw and a headache. Declining medications for headache.
[2018-12-10 18:07] VITALS: BP 143/98; PULSE 81; RESP 14; O2SAT 97
== END 2018-12-10 18:25 | disposition home or self-care (01) ==
PROVIDERS: Emergency Provider Nurse Practitioner Family; PCP Family Medicine
DX: B34.9 Viral infection, unspecified (principal)
CPT/HCPCS: 36415; 70450; 71045; 80053; 81003; 82550; 84443; 84484; 85025; 87400; 93005; 93010; 99283; 99285

== ENCOUNTER → 2018-12-10 | Outpatient (CLI) | payer OTHER, SELFPAY ==
[2018-12-10 11:21] LABS: Add Manual Diff / Slide Review NO; Basophils Absolute Auto 100 /uL (0-100); Basophils Percent Auto 2.3 % (0-2); Eosinophils Absolute Auto 300 /uL (0-450); Eosinophils Percent Auto 7.8 % (2-4); Hemoglobin 12.3 g/dL (12.0-16.0); Lymphocytes Absolute Auto 1400 /uL (1100-4500); Lymphocytes Percent Auto 31.6 % (25-40); Mean Corpuscular HGB Conc 33.2 % (30-36); Mean Corpuscular Hemoglobin 25.6 PG (26-34); Mean Corpuscular Volume 77.1 fL (80-100); Monocytes Absolute Auto 600 /uL (0-900); Monocytes Percent Auto 12.9 % (3-14); Neutrophils Absolute Auto 2000 /uL (1500-7000); Neutrophils Percent Auto 45.4 % (50-75); Platelet Count 238 X10^3/uL (150-400); Red Cell Distribution Width 15.3 % (11.6-14.8); White Blood Cell Count 4.4 X10^3/uL (4.5-11.0)
[2018-12-10 11:29] LABS: Alanine Aminotransferase 33 IU/L (9-52); Albumin 4.1 g/dL (3.5-5.0); Albumin Globulin Ratio 1.4 (1.0-2.8); Alkaline Phosphatase 78 U/L (38-126); Aspartate Aminotransferase 30 IU/L (14-36); BUN Creatinine Ratio 21.1 (6-22); Bilirubin Total 0.3 mg/dL (0.2-1.3); Blood Urea Nitrogen 19 mg/dL (7-17); Carbon Dioxide 29 mmol/L (22-32); Chloride 103 mmol/L (98-107); Estimated Glomerular Filt Rate > 60.0 mL/min (>60); Globulin 2.9 g/dL (1.7-4.1); Glucose 131 mg/dL (70-100); HEMOLYSIS < 15 (0-50); Potassium 4.3 mmol/L (3.4-5.1); Sodium 138 mmol/L (137-145)
== END ==
PROVIDERS: PCP Family Medicine; Visit Provider Family Medicine
DX: C02.9 Malignant neoplasm of tongue, unspecified (principal); C80.1 Malignant (primary) neoplasm, unspecified; E03.9 Hypothyroidism, unspecified; M79.1 Myalgia
CPT/HCPCS: 36415; 80053; 84443; 85025

== ENCOUNTER → 2019-01-06 16:30 | Outpatient (CLI) | payer OTHER, SELFPAY ==
[2019-01-06 17:35] LABS: Blood Urea Nitrogen 18 mg/dL (7-17); Calcium 9.4 mg/dL (8.4-10.2); Carbon Dioxide 32 mmol/L (22-32); Chloride 96 mmol/L (98-107); Estimated Glomerular Filt Rate > 60.0 mL/min (>60); Glucose 102 mg/dL (70-100); HEMOLYSIS < 15 (0-50); Potassium 3.3 mmol/L (3.4-5.1); Sodium 137 mmol/L (137-145)
== END ==
PROVIDERS: PCP Family Medicine; Visit Provider Family Medicine
DX: I10 Essential (primary) hypertension (principal)
CPT/HCPCS: 36415; 80048; 83735

== ENCOUNTER → 2019-01-10 10:46 | Outpatient (CLI) | payer OTHER, SELFPAY ==
--- NOTE | 2019-01-10 | DI.MG.S_ITS ---
BILATERAL DIGITAL SCREENING MAMMOGRAM 3D/2D WITH CAD: 01/10/2019 CLINICAL: Routine screening. Comparison is made to exams dated: 03/16/2016 mammogram, 09/18/2014 mammogram, and 11/08/2012 mammogram - [facility]. There are scattered fibroglandular elements in both breasts. Current study was also evaluated with a Computer Aided Detection (CAD) system. No significant masses, calcifications, or other findings are seen in either breast. There has been no significant interval change. IMPRESSION: NEGATIVE There is no mammographic evidence of malignancy. A 1 year screening mammogram is recommended. This exam was interpreted at Station ID: [id number]. NOTE: For mammograms, a report in lay terms will be sent to the patient. Approximately 15% of breast malignancies will not be visualized mammographically. In the management of a palpable breast mass, a negative mammogram must not discourage biopsy of a clinically suspicious lesion. Electronically Signed By: Gerald childers/neelam:01/10/2019 12:04:30 letter sent: Normal Exam ACR BI-RADS Category 1: Negative [id number]
== END ==
PROVIDERS: PCP Family Medicine; Visit Provider Family Medicine
DX: Z12.31 Encounter for screening mammogram for malignant neoplasm of breast (principal)
CPT/HCPCS: 77063; 77067

== ENCOUNTER → 2019-05-15 07:15 | Outpatient (CLI) | payer OTHER, SELFPAY ==
[2019-05-15 08:13] LABS: Add Manual Diff / Slide Review NO; Basophils Absolute Auto 100 /uL (0-100); Basophils Percent Auto 2.3 % (0-2); Eosinophils Absolute Auto 300 /uL (0-450); Eosinophils Percent Auto 8.2 % (2-4); Hemoglobin 12.7 g/dL (12.0-16.0); Lymphocytes Absolute Auto 1400 /uL (1100-4500); Lymphocytes Percent Auto 35.6 % (25-40); Mean Corpuscular HGB Conc 31.7 % (30-36); Mean Corpuscular Hemoglobin 24.1 PG (26-34); Mean Corpuscular Volume 76.2 fL (80-100); Monocytes Absolute Auto 500 /uL (0-900); Monocytes Percent Auto 13.6 % (3-14); Neutrophils Absolute Auto 1600 /uL (1500-7000); Neutrophils Percent Auto 40.3 % (50-75); Platelet Count 246 X10^3/uL (150-400); Red Blood Cell Count 5.25 X10^6/uL (4.0-5.2); Red Cell Distribution Width 16.8 % (11.6-14.8); White Blood Cell Count 3.9 X10^3/uL (4.5-11.0)
[2019-05-15 08:39] LABS: Alanine Aminotransferase 22 IU/L (9-52); Albumin 4.4 g/dL (3.5-5.0); Albumin Globulin Ratio 1.4 (1.0-2.8); Alkaline Phosphatase 74 U/L (38-126); Aspartate Aminotransferase 29 IU/L (14-36); Bilirubin Total 0.6 mg/dL (0.2-1.3); Blood Urea Nitrogen 16 mg/dL (7-17); Calcium 9.8 mg/dL (8.4-10.2); Carbon Dioxide 29 mmol/L (22-32); Chloride 103 mmol/L (98-107); Cholesterol 270 mg/dL (140-199); Estimated Glomerular Filt Rate 57.6 mL/min (>60); Globulin 3.2 g/dL (1.7-4.1); Glucose 95 mg/dL (70-100); HDL Cholesterol 79 mg/dL (40-60); HEMOLYSIS < 15 (0-50); LDL Cholesterol Calculated 158 mg/dL (<100); Potassium 4.3 mmol/L (3.4-5.1); Sodium 140 mmol/L (137-145); Total Protein 7.6 g/dL (6.3-8.2); Triglycerides 167 mg/dL (35-150)
[2019-05-15 09:09] LABS: Thyroid Stimulating Hormone 2.46 uIU/mL (0.47-4.68)
== END ==
PROVIDERS: PCP Family Medicine; Visit Provider Family Medicine
DX: I10 Essential (primary) hypertension (principal)
CPT/HCPCS: 36415; 80053; 80061; 84443; 85025

== ENCOUNTER 2019-06-24 08:51 | Emergency (ER) | payer OTHER, SELFPAY ==
[2019-06-24] VITALS (9 sets, daily range): BP systolic 140–184; BP diastolic 79–110; PULSE 52–71; RESP 10–17; TEMP 36.1; O2SAT 98–100
--- NOTE | 2019-06-24 09:05 | DI.RAD.S_ITS ---
PROCEDURE: XR CHEST 1V INDICATIONS: chest pain TECHNIQUE: One view of the chest was acquired. COMPARISON: [facility], CR, XR CHEST 1V, 12/10/2018, 17:15. FINDINGS: Surgical changes and devices: Multiple surgical clips stable. Lungs and pleura: Lungs are clear. No pleural effusions or pneumothorax. Mediastinum: Mediastinal contours appear normal. Heart size is normal. Bones and chest wall: No suspicious bony lesions. Overlying soft tissues appear unremarkable. IMPRESSION: No acute cardiopulmonary disease process. Dictated by: Rachael Marshall MD, PhD on 06/24/2019 at 9:17 Approved by: Rachael Marshall MD, PhD on 06/24/2019 at 9:18
--- NOTE | 2019-06-24 09:13 | DI.CT.S_ITS ---
PROCEDURE: CT HEAD/BRAIN WO CON INDICATIONS: left sided weakness TECHNIQUE: Noncontrast 4.5 mm thick angled axial sections acquired from the foramen magnum to the vertex, with coronal and sagittal reformats. For radiation dose reduction, the following was used: automated exposure control, adjustment of mA and/or kV according to patient size. COMPARISON: [facility], CT, CT HEAD/BRAIN WO CON, 12/10/2018, 16:42. FINDINGS: Image quality: Excellent. CSF spaces: Basal cisterns are patent. No extra-axial fluid collections. Ventricles are normal in size and shape. Brain: No midline shift. No intracranial masses or hemorrhage. Craig-white matter interface is normal. Skull and face: Calvarium and visualized facial bones are intact, without suspicious lesions. Sinuses: Visualized sinuses and mastoids are clear. IMPRESSION: No acute intracranial abnormality. Dictated by: Bladimir Fajardo M.D. on 06/24/2019 at 9:27 Approved by: Bladimir Fajardo M.D. on 06/24/2019 at 9:28
--- NOTE | 2019-06-24 09:21 | ED_ITS ---
HPI - Chest Pain General Chief Complaint: Chest Pain Stated Complaint: chest pain Time Seen by Provider: 06/24/19 09:05 Source: patient Mode of arrival: wheelchair Limitations: no limitations History of Present Illness HPI narrative: Patient is a 54-year-old female with history of recurrent tongue cancer now resolved presenting with left-sided chest discomfort in bilateral leg weakness. She states that she has had this chest discomfort and left arm weakness off and on at times it is not any different today than what it has been previously. However today her legs feel extreme week she feels light headed she feels like her pulse is low. MD complaint: chest pain Related Data Home Medications Medication Instructions Recorded Confirmed clindamycin HCl 300 mg capsule 300 mg PO QID 05/27/19 05/27/19 metoprolol succinate [Toprol XL] 25 mg PO DAILY 06/24/19 06/24/19 pantoprazole [Protonix] 40 mg PO DAILY 06/24/19 06/24/19 Previous Rx's Medication Instructions Recorded Disabled Parking Permit . #1 11/02/16 [ENSURE ] 4 scoopful PO TID #10 can 12/21/16 betamethasone dipropionate 0 TOPICAL Q DAY #15 gm 05/02/17 ibuprofen 600 mg PO BID PRN #180 tab 06/10/18 buspirone 15 mg tablet 15 mg PO BID #180 tab 03/18/19 Cymbalta 30 mg capsule,delayed 30 mg PO DAILY #30 cap NS 04/15/19 release hydrocodone 7.5 mg-acetaminophen 15 ml PO Q4HP PRN #300 ml 05/14/19 325 mg/15 mL oral solution levothyroxine 88 mcg tablet 88 mcg PO DAILY #90 tab 06/10/19 Allergies Allergy/AdvReac Type Severity Reaction Status Date / Time citalopram [CITALOPRAM] Allergy Severe CHEST PAIN Verified 05/27/19 08:21 propranolol [PROPRANOLOL] Allergy Severe CHEST PAIN Verified 05/27/19 08:21 AND HEADACHE succinylcholine Allergy Severe rhabdomyolo Verified 05/27/19 08:21 [SUCCINYLCHOLINE] sis DEBORA Inhibitors Allergy Mild COUGHING Verified 05/27/19 08:21 [DEBORA INHIBITORS] amoxicillin [AMOXICILLIN] Allergy Mild RASH Verified 05/27/19 08:21 lisinopril [LISINOPRIL] Allergy Mild COUGHING Verified 05/27/19 08:21 oxycodone [OXYCODONE] Allergy Mild headache Verified 05/27/19 08:21 paroxetine [PAROXETINE] Allergy Mild SEVERE Verified 05/27/19 08:21 HEADACHE Penicillins [PENICILLINS] Allergy Mild RASH Verified 05/27/19 08:21 pravastatin [PRAVASTATIN] Allergy Mild MUSCLE Verified 05/27/19 08:21 WEAKNESS prednisone [PREDNISONE] Allergy Mild PROJECTILE Verified 05/27/19 08:21 VOMITING sertraline [SERTRALINE] Allergy Mild WT GAIN Verified 05/27/19 08:21 simvastatin [SIMVASTATIN] Allergy Mild LEG PAIN Verified 05/27/19 08:21 Sulfa (Sulfonamide Allergy Mild JOINT PAIN Verified 05/27/19 08:21 Antibiotics) UPPER EXT. [SULFA (SULFONAMIDE ANTIBIOTICS)] quinapril AdvReac Intermediate abdominal Verified 05/27/19 08:21 pain, nausea, bloating Review of Systems Review of Systems ROS Unobtainable: All systems reviewed & are unremarkable except as noted in HPI and below Constitutional Constitutional: Denies chills, Denies fever(s), Denies lethargy and Reports weakness Eyes Eyes: Denies change in vision, Denies eye discharge, Denies irritation and Denies loss of vision ENT Ears, Nose, Mouth, and Throat: Denies change in voice, Denies neck pain and Denies sore throat Cardiovascular Cardiovascular: Reports chest pain, Denies dyspnea and Denies dyspnea on exertion Respiratory Respiratory: Denies cough, Denies dyspnea, Denies dyspnea on exertion and Denies wheezing Gastrointestinal Gastrointestinal: Denies abdominal pain, Denies change in bowel habits, Denies diarrhea, Denies nausea and Denies vomiting Musculoskeletal Musculoskeletal: Reports muscle weakness, Denies neck pain, Denies numbness and Denies tingling Integumentary/Breasts Skin/Breast: Denies pruritus, Denies erythema, Denies rash and Denies wounds Neurologic Neurologic: Denies focal weakness, Denies loss of vision, Denies numbness, D enies tingling and Reports weakness Allergic/Immunologic Allergic/Immunologic: Denies wheezing [facility] Medical History GERD (gastroesophageal reflux disease) (Chronic) Hypertension (Chronic) Hypothyroidism (Chronic) Recurrent tongue cancer (Resolved 2009) Tongue cancer (Resolved 1997) Surgical History History of oral surgery (Resolved 1997) History of oral surgery (Resolved 2009) Status post hysterectomy (Resolved 08/2009) Family History Brother Diabetes mellitus CAD (coronary artery disease) Grandfather Diabetes mellitus Mother Diabetes mellitus CAD (coronary artery disease) Social History Smoking Status: Never smoker Family History Brother Diabetes mellitus CAD (coronary artery disease) Grandfather Diabetes mellitus Mother Diabetes mellitus CAD (coronary artery disease) Social History Smoking Status: Never smoker Exam Initial Vital Signs Initial Vital Signs: Vital Signs Temperature 96.9 F L 06/24/19 09:09 Pulse Rate 71 06/24/19 09:09 Respiratory Rate 13 06/24/19 09:09 Blood Pressure 184/110 H 06/24/19 09:09 Pulse Oximetry 100 06/24/19 09:09 GENERAL: Alert female generally weak but no acute distress HEENT: Head atraumatic,EOMI, pupils reactive, face symmetric, moist mucous membranes CARDIOVASCULAR: Regular rate and rhythm without murmurs, rubs or gallops. RESPIRATORY: Breath sounds equal bilaterally, no wheezes rales or rhonchi. ABDOMEN: Soft, nontender. Normoactive bowel sounds all 4 quadrants. No guarding or rebound. EXTREMITIES: Normal range of motion, no clubbing or edema. Neurovascularly intact NEUROLOGICAL: Alert and oriented x4.Normal gait and speech. Cranial nerves II through XII grossly intact. Good [id number], good [id number], strength equal bilaterally, no dysarthria or aphasia, sensation in tact to soft touch bilaterally, no visual changes, no facial droop SKIN: Warm, dry, no laceration, no petechiae, no rashes or lesions. Scores NIH Stroke Scale Level of Conciousness: Alert, keenly responsive Ask month/age: Answers both questions correctly. Open/close eyes, close hand: Performs both tasks correctly Best gaze horizontal: Normal Visual everett: No visual loss Facial palsy: Normal symetrical movement Left arm drift: No drift for full 10 sec Right arm drift: No drift for full 10 sec Left leg drift: No drift for full 10 sec Right leg drift: No drift for full 10 sec Limb ataxia: Absent Sensory on face/arms/legs: Normal, no sensory loss Best language: No aphasia, normal Dysarthria: Normal Extinction or inattention: No abnormality Total NIH Stroke scale score: 0 Course Orders Ordered: ED Orders 06/24/19 08:57 EKG-12 Lead Stat 06/24/19 09:05 XR chest 1V Stat 06/24/19 09:13 CT head/brain wo con Stat 06/24/19 09:30 Complete Blood Count AUTO DIFF Stat Comprehensive Metabolic Panel Stat Lipase Stat Partial Thromboplastin Time Stat Prothrombin Time INR Stat Troponin & CK Cardiac Panel Stat 06/24/19 13:05 Troponin I Stat Discontinued Medications Sodium Chloride (Normal Saline 0.9%) 1,000 mls @ 1,000 mls/hr IV BOLUS ONE Stop: 06/24/19 10:04 Last Infusion: 06/24/19 11:37 Dose: 0 mls/hr Documented by: Admin: 06/24/19 09:51 Dose: 1,000 mls/hr Documented by: BTONER Vital Signs Vital signs: Vital Signs - 8 hr 06/24/19 09:09 06/24/19 09:30 06/24/19 10:00 Temperature 96.9 F L Pulse Rate 71 65 57 L Respiratory Rate 13 16 17 Blood Pressure 184/110 H Blood Pressure [Left Arm] 171/110 H 183/105 H Pulse Oximetry 100 100 100 06/24/19 10:30 06/24/19 11:17 06/24/19 12:06 Temperature Pulse Rate 54 L 54 L 53 L Respiratory Rate 16 10 L 15 Blood Pressure Blood Pressure [Left Arm] 152/90 H 140/83 150/88 H Pulse Oximetry 100 100 98 06/24/19 12:39 06/24/19 13:05 06/24/19 13:59 Temperature Pulse Rate 53 L 52 L 55 L Respiratory Rate 12 11 L Blood Pressure 142/96 H Blood Pressure [Left Arm] 147/81 H 173/79 H Pulse Oximetry 100 100 98 MDM - Chest Pain Lab Data Attestation: I reviewed the patient's lab results. Result diagrams: 06/24/19 09:30 06/24/19 09:30 Labs: Lab Results 06/24/19 06/24/19 06/24/19 Range/Units 09:30 09:30 09:30 WBC 5.2 (4.5-11.0) X10^3/uL RBC 5.20 (4.0-5.2) X10^6/uL Hgb 12.7 (12.0-16.0) g/dL Hct 39.5 (36-46) % MCV 76.0 L (80-100) fL MCH 24.4 L (26-34) PG MCHC 32.1 (30-36) % RDW 16.5 H (11.6-14.8) % Plt Count 233 (150-400) X10^3/uL Neut % (Auto) 51.2 (50-75) % Lymph % (Auto) 30.4 (25-40) % [place] % (Auto) 11.5 (3-14) % Eos % (Auto) 5.5 H (2-4) % Baso % (Auto) 1.4 (0-2) % Neut # (Auto) 2700 (0536-8874) /uL Lymph # (Auto) 1600 (1945-2312) /uL [place] # (Auto) 600 (0-900) /uL Eos # (Auto) 300 (0-450) /uL Baso # (Auto) 100 (0-100) /uL PT 10.8 (10.1-12.7) SECONDS INR 0.9 (0.9-1.3) APTT 24 L (26.4-36.2) SECONDS Sodium 141 (137-145) mmol/L Potassium 4.2 (3.4-5.1) mmol/L Chloride 102 (98-107) mmol/L Carbon Dioxide 28 (22-32) mmol/L BUN 15 (7-17) mg/dL Creatinine 1.00 (0.52-1.04) mg/dL Estimated GFR 57.6 L (>60) mL/min BUN/Creatinine Ratio 15.0 (6-22) Glucose 96 (70-100) mg/dL Calcium 10.0 (8.4-10.2) mg/dL Total Bilirubin 0.6 (0.2-1.3) mg/dL AST 41 H (14-36) IU/L ALT 36 (9-52) IU/L Alkaline Phosphatase 82 (38-126) U/L Total Creatine Kinase 123 (30-135) U/L CK-MB (CK-2) 0.78 (<2.37) ng/mL CK-MB (CK-2) Rel Index 0.6 L (1.5-5.0) % Troponin I < 0.012 (0.01-0.034) ng/mL Total Protein 7.8 (6.3-8.2) g/dL Albumin 4.6 (3.5-5.0) g/dL Globulin 3.2 (1.7-4.1) g/dL Albumin/Globulin Ratio 1.4 (1.0-2.8) Lipase 180 (23-300) U/L 06/24/19 Range/Units 13:05 WBC (4.5-11.0) X10^3/uL RBC (4.0-5.2) X10^6/uL Hgb (12.0-16.0) g/dL Hct (36-46) % MCV (80-100) fL MCH (26-34) PG MCHC (30-36) % RDW (11.6-14.8) % Plt Count (150-400) X10^3/uL Neut % (Auto) (50-75) % Lymph % (Auto) (25-40) % [place] % (Auto) (3-14) % Eos % (Auto) (2-4) % Baso % (Auto) (0-2) % Neut # (Auto) (6235-7432) /uL Lymph # (Auto) (9023-7112) /uL [place] # (Auto) (0-900) /uL Eos # (Auto) (0-450) /uL Baso # (Auto) (0-100) /uL PT (10.1-12.7) SECONDS INR (0.9-1.3) APTT (26.4-36.2) SECONDS Sodium (137-145) mmol/L Potassium (3.4-5.1) mmol/L Chloride (98-107) mmol/L Carbon Dioxide (22-32) mmol/L BUN (7-17) mg/dL Creatinine (0.52-1.04) mg/dL Estimated GFR (>60) mL/min BUN/Creatinine Ratio (6-22) Glucose (70-100) mg/dL Calcium (8.4-10.2) mg/dL Total Bilirubin (0.2-1.3) mg/dL AST (14-36) IU/L ALT (9-52) IU/L Alkaline Phosphatase (38-126) U/L Total Creatine Kinase (30-135) U/L CK-MB (CK-2) (<2.37) ng/mL CK-MB (CK-2) Rel Index (1.5-5.0) % Troponin I < 0.012 (0.01-0.034) ng/mL Total Protein (6.3-8.2) g/dL Albumin (3.5-5.0) g/dL Globulin (1.7-4.1) g/dL Albumin/Globulin Ratio (1.0-2.8) Lipase (23-300) U/L Urine Dip Bedside Urine Glucose Negative Bedside Urine Bilirubin - Negative Bedside Urine Ketone - Negative Urine Specific [place] 1.010 Bedside Urine Occult Blood - Negative Bedside Urine pH 7.5 Bedside Urine Protein - Negative Bedside Urine Urobilinogen - Negative Bedside Urine Nitrite - Negative Bedside Urine Leukocytes - Negative Esterase Imaging Data CT scan - head: Radiologist's impression: PROCEDURE: CT HEAD/BRAIN WO CON INDICATIONS: left sided weakness TECHNIQUE: Noncontrast 4.5 mm thick angled axial sections acquired from the foramen magnum to the vertex, with coronal and sagittal reformats. For radiation dose reduction, the following was used: automated exposure control, adjustment of mA and/or kV according to patient size. COMPARISON: [facility], CT, CT HEAD/BRAIN WO CON, 12/10/2018, 16:42. FINDINGS: Image quality: Excellent. CSF spaces: Basal cisterns are patent. No extra-axial fluid collections. Ventricles are normal in size and shape. Brain: No midline shift. No intracranial masses or hemorrhage. Craig-white matter interface is normal. Skull and face: Calvarium and visualized facial bones are intact, without suspicious lesions. Sinuses: Visualized sinuses and mastoids are clear. IMPRESSION: No acute intracranial abnormality. Dictated by: Bladimir Fajardo M.D. on 06/24/2019 at 9:27 Chest x-ray: Radiologist's impression: PROCEDURE: XR CHEST 1V INDICATIONS: chest pain TECHNIQUE: One view of the chest was acquired. COMPARISON: [facility], CR, XR CHEST 1V, 12/10/2018, 17:15. FINDINGS: Surgical changes and devices: Multiple surgical clips stable. Lungs and pleura: Lungs are clear. No pleural effusions or pneumothorax. Mediastinum: Mediastinal contours appear normal. Heart size is normal. Bones and chest wall: No suspicious bony lesions. Overlying soft tissues appear unremarkable. IMPRESSION: No acute cardiopulmonary disease process. Dictated by: Rachael Marshall MD, PhD on 06/24/2019 at 9:17 ECG Data Attestation: I personally reviewed and interpreted this ECG as follows: Prior ECG tracings: available for review Interpretation: Normal sinus rhythm rate 61 p.r. interval 154 T-wave inversions noted in lead [address] elevations or depressions. T-wave inversions are noted from EKG in November of 2018 remain relatively unchanged. MDM Narrative Medical decision making narrative: Patient states that her left-sided chest pain is unchanged she has had multiple episodes of this she is actually not worried about her chest pain were worried that her legs are weak. She received a L of IV fluid she overall is feeling much better. She says her leg weakness is better than numbness in her hands is better. Her chest pain is gone. She has 2-troponins. At this time she feels ready and able to go home. Discharge Plan Departure Patient Disposition: Home Clinical Impression: Weakness, Atypical chest pain Discharge Date/Time: 06/24/19 14:00 Instructions: DI for Atypical Chest Pain Activity Restrictions/Additional Instructions: *You have been diagnosed with atypical chest pain, weakness *What to do: Blood work CT scan all are reassuring today. Increase fluid intake *Continue to take medications as directed *Follow up with your primary care provider in 2-3 days *Return to ER if you should have increasing weakness facial drooping increasing chest pain or any new, worsening or concerning symptoms Prescriptions: No Action Disabled Parking Permit . Qty: 1 RF: 0 [ENSURE ] 4 scoopful PO TID Qty: 10 RF: 11 betamethasone dipropionate 0.05 % ointment 0 Topical Q DAY Qty: 15 RF: 3 ibuprofen 600 mg tablet 600 mg PO BID PRNQty: 180 RF: 3 buspirone 15 mg tablet 15 mg PO BID Qty: 180 RF: 3 hydrocodone-acetaminophen 7.5-325 mg/15 mL solution 15 ml PO Q4HP PRN (Reason: pain) Qty: 300 RF: 0 levothyroxine 88 mcg tablet 88 mcg PO DAILY Qty: 90 RF: 3 duloxetine [Cymbalta] 30 mg capsule,delayed release(DR/EC) 30 mg PO DAILY Qty: 30 RF: 0 clindamycin HCl 300 mg capsule 300 mg PO QID RF: 0 pantoprazole [Protonix] 40 mg tablet,delayed release (DR/EC) 40 mg PO DAILY RF: 0 metoprolol succinate [Toprol XL] 25 mg tablet extended release 24 hr 25 mg PO DAILY RF: 0 Referrals: Shiv Slaughter MD [Primary Care Provider] -
[2019-06-24 09:41] LABS: Add Manual Diff / Slide Review NO; Basophils Absolute Auto 100 /uL (0-100); Basophils Percent Auto 1.4 % (0-2); Eosinophils Absolute Auto 300 /uL (0-450); Eosinophils Percent Auto 5.5 % (2-4); Hematocrit 39.5 % (36-46); Hemoglobin 12.7 g/dL (12.0-16.0); Lymphocytes Absolute Auto 1600 /uL (1100-4500); Lymphocytes Percent Auto 30.4 % (25-40); Mean Corpuscular HGB Conc 32.1 % (30-36); Mean Corpuscular Hemoglobin 24.4 PG (26-34); Monocytes Absolute Auto 600 /uL (0-900); Monocytes Percent Auto 11.5 % (3-14); Neutrophils Absolute Auto 2700 /uL (1500-7000); Neutrophils Percent Auto 51.2 % (50-75); Platelet Count 233 X10^3/uL (150-400); Red Cell Distribution Width 16.5 % (11.6-14.8); White Blood Cell Count 5.2 X10^3/uL (4.5-11.0)
[2019-06-24 09:46] LABS: INR 0.9 (0.9-1.3); Prothrombin Time 10.8 SECONDS (10.1-12.7)
[2019-06-24 09:49] LABS: PTT Partial Thromboplastin Tim 24 SECONDS (26.4-36.2)
[2019-06-24 09:51] LABS: Alanine Aminotransferase 36 IU/L (9-52); Albumin 4.6 g/dL (3.5-5.0); Albumin Globulin Ratio 1.4 (1.0-2.8); Alkaline Phosphatase 82 U/L (38-126); Aspartate Aminotransferase 41 IU/L (14-36); Bilirubin Total 0.6 mg/dL (0.2-1.3); Blood Urea Nitrogen 15 mg/dL (7-17); Carbon Dioxide 28 mmol/L (22-32); Chloride 102 mmol/L (98-107); Creatine Kinase 123 U/L (30-135); Estimated Glomerular Filt Rate 57.6 mL/min (>60); Globulin 3.2 g/dL (1.7-4.1); Glucose 96 mg/dL (70-100); Lipase 180 U/L (23-300); Potassium 4.2 mmol/L (3.4-5.1); Sodium 141 mmol/L (137-145); Total Protein 7.8 g/dL (6.3-8.2)
[2019-06-24] MEDS: SODIUM CHLORIDE 0.9% 1,000 ML 1000 ML IV (09:51)
[2019-06-24 10:02] LABS: Troponin I < 0.012 ng/mL (0.01-0.034)
[2019-06-24 10:06] LABS: CKMB % Relative Index 0.6 % (1.5-5.0); Creatine Kinase MB 0.78 ng/mL (<2.37); HEMOLYSIS 15 (0-50)
[2019-06-24 13:40] LABS: Troponin I < 0.012 ng/mL (0.01-0.034)
== END 2019-06-24 14:00 | disposition home or self-care (01) ==
PROVIDERS: Emergency Provider Emergency Medicine; PCP Family Medicine
DX: R53.1 Weakness (principal); R07.89 Other chest pain
CPT/HCPCS: 36415; 36591; 70450; 71045; 80053; 81003; 82550; 82553; 83690; 84484; 85025; 85610; 85730; 93005; 93010; 96360; 96361; 99285

== ENCOUNTER → 2019-08-05 14:08 | Outpatient (CLI) | payer OTHER, SELFPAY | PROVIDERS: PCP Family Medicine | DX: Z23 Encounter for immunization (principal) | CPT/HCPCS: 90471; 90686 ==

== ENCOUNTER → 2019-11-04 07:31 | Outpatient (CLI) | payer OTHER, SELFPAY ==
[2019-11-04 08:40] LABS: Erythrocyte Sedimentation Rate 6 MM/HR (0-20)
[2019-11-04 08:45] LABS: C-Reactive Protein Quant < 0.5 mg/dL (<1.0)
[2019-11-04 09:22] LABS: Thyroid Stimulating Hormone 2.67 uIU/mL (0.47-4.68)
== END ==
PROVIDERS: PCP Family Medicine; Visit Provider Nurse Practitioner
DX: M79.10 Myalgia, unspecified site (principal); E03.9 Hypothyroidism, unspecified
CPT/HCPCS: 36415; 84443; 85651; 86140

== ENCOUNTER → 2019-12-09 16:33 | Outpatient (CLI) | payer OTHER, SELFPAY ==
--- NOTE | 2019-12-09 16:39 | DI.RAD.S_ITS ---
PROCEDURE: XR THORACIC SPINE 3V INDICATIONS: lt flank pain TECHNIQUE: 3 views of the thoracic spine were acquired. COMPARISON: [facility], THORACIC SPINE 3 VIEWS, 03/29/2016, 15:35. [facility], THORACIC SPINE 3 VIEWS, 07/30/2013, 12:56. FINDINGS: Bones: No fractures or dislocations. There is only a slight degree of degenerative disc disease along the thoracic spine best seen at the middle third, equivalent to that previously present in 2013. No suspicious bony lesions. 12 pairs of ribs are noted, and appear intact where visualized. Soft tissues: No paravertebral stripe thickening. IMPRESSION: No trauma found, no lesion suggestive of underlying infection or neoplasm is found. 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 Dictated by: Luis Armando Paulson M.D. on 12/09/2019 at 17:14 Approved by: Luis Armando Paulson M.D. on 12/09/2019 at 17:14
== END ==
PROVIDERS: PCP Family Medicine; Referring Provider Family Medicine; Visit Provider Family Medicine
DX: R10.9 Unspecified abdominal pain (principal)
CPT/HCPCS: 72072

== ENCOUNTER → 2020-07-08 07:16 | Outpatient (CLI) | payer OTHER, SELFPAY ==
[2020-07-08 08:25] LABS: Add Manual Diff / Slide Review NO; Basophils Absolute Auto 0 /uL (0-100); Basophils Percent Auto 0.2 % (0-2); Eosinophils Absolute Auto 0 /uL (0-450); Hematocrit 38.7 % (36-46); Hemoglobin 12.6 g/dL (12.0-16.0); Lymphocytes Absolute Auto 1100 /uL (1100-4500); Lymphocytes Percent Auto 13.4 % (25-40); Mean Corpuscular HGB Conc 32.6 % (30-36); Mean Corpuscular Hemoglobin 23.9 PG (26-34); Mean Corpuscular Volume 73.2 fL (80-100); Monocytes Absolute Auto 500 /uL (0-900); Neutrophils Absolute Auto 6300 /uL (1500-7000); Neutrophils Percent Auto 80.4 % (50-75); Platelet Count 247 X10^3/uL (150-400); Red Blood Cell Count 5.29 X10^6/uL (4.0-5.2); Red Cell Distribution Width 17.9 % (11.6-14.8); White Blood Cell Count 7.8 X10^3/uL (4.5-11.0)
[2020-07-08 08:30] LABS: Hemoglobin A1C% w Est Avg Glu 6.2 % (4.0-6.0)
[2020-07-08 08:41] LABS: Alanine Aminotransferase 19 IU/L (<35); Albumin 4.5 g/dL (3.5-5.0); Albumin Globulin Ratio 1.5 (1.0-2.8); Alkaline Phosphatase 72 U/L (38-126); Aspartate Aminotransferase 25 IU/L (14-36); BUN Creatinine Ratio 16.7 (6-22); Bilirubin Total 0.6 mg/dL (0.2-1.3); Blood Urea Nitrogen 15 mg/dL (7-17); Calcium 9.7 mg/dL (8.4-10.2); Carbon Dioxide 29 mmol/L (22-32); Chloride 103 mmol/L (98-107); Cholesterol 275 mg/dL (140-199); Estimated Glomerular Filt Rate > 60.0 mL/min (>60); Globulin 3.1 g/dL (1.7-4.1); Glucose 104 mg/dL (70-100); HDL Cholesterol 105 mg/dL (40-60); HEMOLYSIS < 15 (0-50); LDL Cholesterol Calculated 154 mg/dL (<100); Potassium 4.3 mmol/L (3.4-5.1); Sodium 140 mmol/L (137-145); Total Protein 7.6 g/dL (6.3-8.2); Triglycerides 79 mg/dL (35-150)
[2020-07-08 08:54] LABS: Free T4, Direct Thyroxine 1.57 ng/dL (0.78-2.19)
[2020-07-08 09:08] LABS: Thyroid Stimulating Hormone 0.055 uIU/mL (0.47-4.68)
== END ==
PROVIDERS: PCP Internal Medicine; Referring Provider Internal Medicine; Visit Provider Internal Medicine
DX: E03.9 Hypothyroidism, unspecified (principal); F41.9 Anxiety disorder, unspecified; I10 Essential (primary) hypertension; M54.6 Pain in thoracic spine; R73.9 Hyperglycemia, unspecified
CPT/HCPCS: 36415; 80053; 80061; 83036; 84439; 84443; 85025

== ENCOUNTER → 2020-07-14 18:09 | Outpatient (CLI) | payer OTHER, SELFPAY | PROVIDERS: PCP Internal Medicine; Referring Provider Internal Medicine; Visit Provider Internal Medicine | DX: Z23 Encounter for immunization (principal) | CPT/HCPCS: 90471; 90662 ==

== ENCOUNTER → 2020-10-20 09:08 | Outpatient (CLI) | payer OTHER, SELFPAY ==
[2020-10-20] MEDS: COVID-19 VACC(MODERNA-1)/PF 100 MCG/0.5 ML VIAL IM (09:13)
== END ==
PROVIDERS: PCP Internal Medicine; Visit Provider Internal Medicine
DX: Z23 Encounter for immunization (principal)
CPT/HCPCS: 0011A; 91301

== ENCOUNTER → 2020-11-02 09:38 | Outpatient (CLI) | payer OTHER, SELFPAY ==
[2020-11-02 10:28] LABS: Add Manual Diff / Slide Review NO; Basophils Absolute Auto 100 /uL (0-100); Basophils Percent Auto 2.5 % (0-2); Eosinophils Absolute Auto 200 /uL (0-450); Eosinophils Percent Auto 7.1 % (2-4); Hematocrit 37.2 % (36-46); Lymphocytes Absolute Auto 1100 /uL (1100-4500); Lymphocytes Percent Auto 33.6 % (25-40); Mean Corpuscular HGB Conc 32.2 % (30-36); Mean Corpuscular Hemoglobin 23.7 PG (26-34); Mean Corpuscular Volume 73.5 fL (80-100); Monocytes Absolute Auto 400 /uL (0-900); Monocytes Percent Auto 12.2 % (3-14); Neutrophils Absolute Auto 1500 /uL (1500-7000); Neutrophils Percent Auto 44.6 % (50-75); Platelet Count 227 X10^3/uL (150-400); Red Blood Cell Count 5.06 X10^6/uL (4.0-5.2); Red Cell Distribution Width 16.7 % (11.6-14.8); White Blood Cell Count 3.4 X10^3/uL (4.5-11.0)
[2020-11-02 10:50] LABS: Alanine Aminotransferase 21 IU/L (<35); Albumin 4.2 g/dL (3.5-5.0); Albumin Globulin Ratio 1.5 (1.0-2.8); Alkaline Phosphatase 94 U/L (38-126); Aspartate Aminotransferase 28 IU/L (14-36); BUN Creatinine Ratio 13.1 (6-22); Bilirubin Total 0.2 mg/dL (0.2-1.3); Blood Urea Nitrogen 11 mg/dL (7-17); Calcium 9.2 mg/dL (8.4-10.2); Carbon Dioxide 32 mmol/L (22-32); Chloride 105 mmol/L (98-107); Estimated Glomerular Filt Rate > 60.0 mL/min (>60); Globulin 2.8 g/dL (1.7-4.1); Glucose 130 mg/dL (70-100); HEMOLYSIS < 15 (0-50); Potassium 4.1 mmol/L (3.4-5.1); Sodium 138 mmol/L (137-145)
[2020-11-02 11:21] LABS: Free T4, Direct Thyroxine 1.72 ng/dL (0.78-2.19)
[2020-11-02 11:35] LABS: Thyroid Stimulating Hormone 0.542 uIU/mL (0.47-4.68)
[2020-11-02 12:51] LABS: Hemoglobin A1C% w Est Avg Glu 6.2 % (4.0-6.0)
== END ==
PROVIDERS: PCP Internal Medicine; Referring Provider Internal Medicine; Visit Provider Internal Medicine
DX: E03.9 Hypothyroidism, unspecified (principal); K21.9 Gastro-esophageal reflux disease without esophagitis; R07.9 Chest pain, unspecified
CPT/HCPCS: 36415; 80053; 83036; 84439; 84443; 85025

== ENCOUNTER → 2020-11-16 09:00 | Outpatient (CLI) | payer OTHER, SELFPAY ==
[2020-11-16] MEDS: COVID-19 VACC #2, MRNA(MOD) 100 MCG/0.5 ML VIAL IM (09:05)
== END ==
PROVIDERS: PCP Internal Medicine; Visit Provider Internal Medicine
DX: Z23 Encounter for immunization (principal)
CPT/HCPCS: 0012A; 91301

== ENCOUNTER → 2020-12-01 10:57 | Outpatient (CLI) | payer OTHER, SELFPAY ==
[2020-12-01 12:49] LABS: COVID19 -Nasal RAPID Negative (Negative)
== END ==
PROVIDERS: PCP Internal Medicine; Visit Provider Physician Assistant
DX: Z20.822 Contact with and (suspected) exposure to COVID-19 (principal)
CPT/HCPCS: 87635

== ENCOUNTER → 2020-12-03 09:37 | Outpatient (CLI) | payer OTHER, SELFPAY ==
--- NOTE | 2020-12-03 14:54 | P.PCN_ITS ---
Cardiac Stress Test Report Referral & Results Date Patient Seen: 12/03/20 Requesting provider: Sharath Escalona Indication: Chest pain Rest ECG: Unremarkable Procedure Note: After both written and verbal informed consent the patient had an IV started by the diagnostic imaging RN and then was hooked up to the treadmill monitoring system. The patient was placed on the treadmill at 1 mile an hour with no elevation and was then injected with the Mikayla scan material. The Cardiolite was then immediately administered. The patient spent an additional 2-3 minutes on the treadmill before being returned to the [facility] in the supine position. The patient had a normal response to all infused materials. Patient did experience significant dyspnea and became tachycardic and somewhat hypertensive with the Lexiscan administration but this resolved within 120 seconds. No changes on ECG were noted Impression: No worrisome changes or concern following Lexiscan and Cardiolite administration Please see perfusion imaging for further details regarding possible ischemia Please note: Actual ECG tracings can be found in the PACS system.
--- NOTE | 2020-12-03 17:03 | DI.NM.S_ITS ---
DATE OF SERVICE: 12/03/2020 PROCEDURE PERFORMED: Pharmacologic vasodilator stress and rest myocardial perfusion imaging with gating to assess ejection fraction and regional wall motion. ORDERING PROVIDER: Dr. Sharath Escalona. INDICATIONS: The patient is a 55-year-old female with atypical chest discomfort and palpitations. PHARMACOLOGIC STRESS: Per protocol, 0.4 mg of regadenoson was infused and augmented by low-level walking on the treadmill. With this, she had an accelerated heart rate response with a resting heart rate of 70 BPM increasing to a heart rate of 140 BPM, 85% of her predicted maximum. She described dyspnea and chest discomfort with stress. Her resting ECG is normal and there are no significant ST-segment shifts with exercise. There were no arrhythmias beyond her sinus tachycardia. Per protocol, 23.0 millicuries of technetium-99m Myoview was injected and the patient was imaged 15 minutes later using a gated SPECT acquisition protocol. Earlier in the day, while at rest, she had been injected with 9.1 millicuries of technetium-99m Myoview and was imaged 30 minutes later, again using a gated SPECT acquisition protocol. FINDINGS: 1. Raw data: There is fair myocardial tracer uptake with moderate breast shadows noted. The lung/heart ratio is normal at 0.36 with a normal TID ratio of 0.79. 2. Quantitated gated SPECT: Post-stress ejection fraction is estimated at 92% with vigorous left ventricular systolic function and relatively small left ventricular volumes without any focal wall motion abnormality. Resting ejection fraction is estimated at 85% with a fairly small resting end-diastolic volume of 53 mL. 3. Myocardial perfusion imaging: Post-stress supine images show a fairly normal myocardial perfusion pattern with a subtle mid-distal anterior defect that completely resolves on prone imaging, consistent with breast attenuation artifact. The resting images show an identical perfusion pattern without any areas of improvement. IMPRESSION: 1. Normal myocardial perfusion study. 2. Subtle, fixed mid to distal anterior defect that resolves on prone imaging, consistent with breast attenuation artifact. There is no evidence for myocardial ischemia or previous myocardial infarction. 3. Vigorous left ventricular systolic function with relatively small left ventricular volumes without any focal wall motion abnormality. 4. Dyspnea and chest discomfort, but no ECG changes of ischemia with pharmacologic stress. 5. Compared to the previous myocardial perfusion study of 04/10/2017, an identical perfusion pattern is seen again with evidence of breast attenuation artifact. Her previous ejection fraction was 94% with an end-diastolic volume of 56 mL, suggesting the absence of any significant change from the previous study. Naye Muñoz - GEORGE/yair/giorgio doc#: [id number]/job#: [id number] dd: 12/03/2020 16:31:00 dt: 12/03/2020 16:49:00 DICTATING MD/COPIES TO: Jasper Morgan MD COPIES MNE: LOGAN;
== END ==
PROVIDERS: PCP Internal Medicine; Referring Provider Internal Medicine; Visit Provider Internal Medicine
DX: R07.89 Other chest pain (principal); R00.2 Palpitations; I10 Essential (primary) hypertension; M54.6 Pain in thoracic spine
CPT/HCPCS: 78452; 93016; 93017; 93018; A9502; J2785

== ENCOUNTER → 2021-04-08 10:40 | Outpatient (CLI) | payer OTHER, SELFPAY ==
[2021-04-08 12:07] LABS: Add Manual Diff / Slide Review NO; Basophils Absolute Auto 100 /uL (0-100); Basophils Percent Auto 1.9 % (0-2); Eosinophils Absolute Auto 300 /uL (0-450); Eosinophils Percent Auto 6.2 % (2-4); Hematocrit 36.5 % (36-46); Hemoglobin 11.5 g/dL (12.0-16.0); Lymphocytes Absolute Auto 1600 /uL (1100-4500); Lymphocytes Percent Auto 32.9 % (25-40); Mean Corpuscular HGB Conc 31.4 % (30-36); Mean Corpuscular Hemoglobin 22.3 PG (26-34); Mean Corpuscular Volume 71.1 fL (80-100); Monocytes Absolute Auto 700 /uL (0-900); Monocytes Percent Auto 13.9 % (3-14); Neutrophils Absolute Auto 2200 /uL (1500-7000); Neutrophils Percent Auto 45.1 % (50-75); Platelet Count 219 X10^3/uL (150-400); Red Blood Cell Count 5.14 X10^6/uL (4.0-5.2); Red Cell Distribution Width 16.9 % (11.6-14.8); White Blood Cell Count 4.9 X10^3/uL (4.5-11.0)
[2021-04-08 12:21] LABS: Alanine Aminotransferase 23 IU/L (<35); Albumin Globulin Ratio 1.3 (1.0-2.8); Alkaline Phosphatase 78 U/L (38-126); Aspartate Aminotransferase 30 IU/L (14-36); BUN Creatinine Ratio 20.2 (6-22); Bilirubin Total 0.3 mg/dL (0.2-1.3); Blood Urea Nitrogen 17 mg/dL (7-17); C-Reactive Protein Quant < 0.5 mg/dL (<1.0); Calcium 9.1 mg/dL (8.4-10.2); Carbon Dioxide 29 mmol/L (22-32); Chloride 106 mmol/L (98-107); Estimated Glomerular Filt Rate > 60.0 mL/min (>60); Glucose 67 mg/dL (70-100); HEMOLYSIS < 15 (0-50); Potassium 3.8 mmol/L (3.4-5.1); Sodium 140 mmol/L (137-145)
[2021-04-08 12:27] LABS: Erythrocyte Sedimentation Rate 6 MM/HR (0-20)
== END ==
PROVIDERS: PCP Internal Medicine; Referring Provider Internal Medicine; Visit Provider Internal Medicine
DX: I10 Essential (primary) hypertension (principal); R73.9 Hyperglycemia, unspecified; E03.9 Hypothyroidism, unspecified
CPT/HCPCS: 36415; 80053; 83036; 85025; 85651; 86140

== ENCOUNTER → 2021-04-29 08:23 | Outpatient (CLI) | payer OTHER, SELFPAY ==
--- NOTE | 2021-04-29 | DI.CT.S_ITS ---
PROCEDURE: CT SOFT TISSUE NECK W CON INDICATIONS: Personal history of malignant neoplasm of tongue TECHNIQUE: After the administration of intravenous contrast, 3.0 mm axial sections acquired from the sella to the aortic arch. Additional oblique axial 3.0 mm sections acquired through the pharynx. 3 mm thick coronal and sagittal reformats were generated. For radiation dose reduction, the following was used: automated exposure control. COMPARISON: [facility], CT, CT HEAD/BRAIN WO CON, 06/24/2019, 9:12. FINDINGS: There are postsurgical changes of glossectomy and partial left mandibulectomy, with possible partial floor of mouth resection in addition to left neck dissection. There has been a myocutaneous flap reconstruction. Extensive radiation changes in the left greater than right neck. There is no suspicious enhancing mass in the left neck. No threshold enlarged cervical or supraclavicular lymph node identified. There is nonspecific swelling of the left periorbital soft tissues with infiltration of left periorbital fat planes. No enhancing mass in the left orbit or periorbital region identified. Right orbital structures are normal. Clear paranasal sinuses and mastoid air cells. No acute vascular finding in the neck. Mild bilateral atherosclerosis in the carotid systems. No suspicious nodule in the included lung apices. IMPRESSION: Extensive postsurgical changes in the left neck and oral cavity with no definite evidence of recurrent disease, with caveat that there is no comparison imaging available. Nonspecific left peroneal soft tissue inflammatory changes. Dictated by: Luke Cho M.D. on 04/29/2021 at 10:32 Approved by: Luke Cho M.D. on 04/29/2021 at 10:48
--- NOTE | 2021-04-29 | DI.CT.S_ITS ---
PROCEDURE: CT CHEST W CON INDICATIONS: Personal history of malignant neoplasm of tongue TECHNIQUE: After the administration of intravenous contrast, 5 mm thick sections acquired from the pulmonary apices to the posterior costophrenic angles. 1 mm axial lung, 5 mm thick coronal and sagittal reformats and 7 mm axial MIP were acquired. For radiation dose reduction, the following was used: automated exposure control, adjustment of mA and/or kV according to patient size. COMPARISON: [facility], CT, PE STUDY (CTA CHEST), 02/15/2015, 8:26. FINDINGS: Image quality: Excellent. Lungs and pleura: There is minimal dependent atelectasis. No acute consolidation. No pleural effusions or pneumothorax. The trachea and central airways appear patent. There are a few small pulmonary nodules, including: -right upper lobe 2-3 mm nodule (3/54), new from prior study. -right upper lobe 2 mm nodule (3/62), unchanged compared to prior study given differences in technique. -right upper lobe 2 mm nodule (3/96), unchanged given differences in technique. -right upper lobe 2 mm nodule (3/99), unchanged given differences in technique. -right middle lobe 2 mm nodule (3/148), new from prior study. -left upper lobe 2 mm nodule (3/105), unchanged from prior study. Mediastinum: Heart size is normal. No pericardial effusion. No mediastinal or hilar adenopathy by size criteria. Thoracic aorta and central pulmonary arteries are normal in size. Esophagus is normal in caliber. No hiatal hernia. Bones and chest wall: No suspicious bony lesions. No vertebral body compression fractures. No axillary or supraclavicular adenopathy by size criteria. Abdomen: Visualized upper abdomen demonstrates hypoattenuation of the liver consistent with fatty infiltration. IMPRESSION: 1. Multiple small bilateral pulmonary nodules as described, including 2 nodules within the right upper and middle lobes which appear new from the prior study. The findings are indeterminate but given patient's history, metastatic disease cannot be excluded. Recommend follow-up in 6 months to demonstrate stability. Dictated by: Mihai Ricks M.D. on 04/29/2021 at 9:25 Approved by: Mihai Ricks M.D. on 04/29/2021 at 9:40
== END ==
PROVIDERS: PCP Internal Medicine; Referring Provider Otolaryngology; Visit Provider Otolaryngology
DX: R22.0 Localized swelling, mass and lump, head (principal); R91.8 Other nonspecific abnormal finding of lung field; Z85.810 Personal history of malignant neoplasm of tongue
CPT/HCPCS: 70491; 71260; Q9967

== ENCOUNTER → 2021-09-02 08:31 | Outpatient (CLI) | payer OTHER, SELFPAY ==
[2021-09-02] MEDS: COVID-19 VACC #3, MRNA(MOD) 50 MCG/0.25 ML VIAL IM (08:39)
== END ==
PROVIDERS: PCP Internal Medicine; Visit Provider Internal Medicine
DX: Z23 Encounter for immunization (principal)
CPT/HCPCS: 0013A; 91301

== ENCOUNTER → 2021-09-15 19:31 | Outpatient (CLI) | payer OTHER, SELFPAY | PROVIDERS: PCP Internal Medicine; Referring Provider Internal Medicine; Visit Provider Internal Medicine | DX: Z23 Encounter for immunization (principal) | CPT/HCPCS: 90471; 90686 ==

== ENCOUNTER → 2021-11-15 11:55 | Outpatient (CLI) | payer OTHER, SELFPAY ==
[2021-11-15 13:17] LABS: Alanine Aminotransferase 29 IU/L (<35); Albumin Globulin Ratio 1.7 (1.0-2.8); Alkaline Phosphatase 78 U/L (38-126); Aspartate Aminotransferase 27 IU/L (14-36); BUN Creatinine Ratio 14.3 (6-22); Bilirubin Total 0.4 mg/dL (0.2-1.3); Blood Urea Nitrogen 15 mg/dL (7-17); Calcium 9.8 mg/dL (8.4-10.2); Carbon Dioxide 33 mmol/L (22-32); Chloride 101 mmol/L (98-107); Globulin 2.4 g/dL (1.7-4.1); Glucose 116 mg/dL (70-100); HEMOLYSIS < 15 (0-50); Magnesium 2.2 mg/dL (1.6-2.3); Potassium 4.2 mmol/L (3.4-5.1); Sodium 137 mmol/L (137-145); Total Protein 6.4 g/dL (6.3-8.2)
[2021-11-15 13:56] LABS: TSH w/ Reflex to FT4 2.86 uIU/mL (0.47-4.68)
== END ==
PROVIDERS: PCP Internal Medicine; Referring Provider Internal Medicine; Visit Provider Internal Medicine
DX: E03.9 Hypothyroidism, unspecified (principal); I10 Essential (primary) hypertension; R73.9 Hyperglycemia, unspecified
CPT/HCPCS: 36415; 80053; 83735; 84443

== ENCOUNTER → 2021-11-21 09:55 | Outpatient (CLI) | payer OTHER, SELFPAY ==
--- NOTE | 2021-12-15 16:04 | PM.CARDMON.1 ---
Dividend Deposit Voucher Clerk Report Referral & Results Date Patient Seen: 11/21/21 Requesting provider: Sharath Escalona Indication: Tachycardia Duration of monitoring (days): 14 Diary information: There were 6 patient triggered events and 7 patient diary entries Patient triggered events were variably associated with (within 45 seconds) sinus rhythm, PACs, PVCs, and SVT Patient diary eventswere associated only with sinus rhythm Data: Minimum heart rate identified was 46 beats per minute at 23:13 on 11/28/2021 Maximum sinus heart rate was 125 beats per minute at 16:26 on 11/26/2021 Maximum overall heart rate was 184 beats per minute at 08:08 on 12/01/2021 Less than 1% of identified beats were ventricular or supraventricular ectopic in origin, which would classify them as rare. There were 6 runs of SVT the fastest being a 7 beat run at a rate of 184 beats per minute which was also the longest run Impression: 14 day traffic monitor specialist demonstrating very rare very brief runs of SVT
== END ==
PROVIDERS: PCP Internal Medicine; Referring Provider Internal Medicine; Visit Provider Internal Medicine
DX: R00.0 Tachycardia, unspecified (principal)
CPT/HCPCS: 93246; 93248

== ENCOUNTER → 2021-12-23 13:02 | Outpatient (CLI) | payer OTHER, SELFPAY ==
--- NOTE | 2021-12-23 | DI.MG.S_ITS ---
BILATERAL DIGITAL SCREENING MAMMOGRAM 3D/2D WITH CAD: 12/23/2021 CLINICAL: Routine screening. Comparison is made to exams dated: 01/10/2019 mammogram, 03/16/2016 mammogram, and 09/18/2014 mammogram - [facility]. There are scattered fibroglandular elements in both breasts. Current study was also evaluated with a Computer Aided Detection (CAD) system. No significant masses, calcifications, or other findings are seen in either breast. There has been no significant interval change. IMPRESSION: NEGATIVE There is no mammographic evidence of malignancy. A 1 year screening mammogram is recommended. This exam was interpreted at Station ID: [id number]. NOTE: For mammograms, a report in lay terms will be sent to the patient. Approximately 15% of breast malignancies will not be visualized mammographically. In the management of a palpable breast mass, a negative mammogram must not discourage biopsy of a clinically suspicious lesion. Electronically Signed By: Timbo Madrigal acr/neelam:12/23/2021 13:59:42 letter sent: Normal Exam ACR BI-RADS Category 1: Negative [id number]
== END ==
PROVIDERS: PCP Internal Medicine; Referring Provider Internal Medicine; Visit Provider Internal Medicine
DX: Z12.31 Encounter for screening mammogram for malignant neoplasm of breast (principal)
CPT/HCPCS: 77063; 77067

== ENCOUNTER → 2022-07-31 15:29 | Outpatient (CLI) | payer OTHER, SELFPAY ==
[2022-07-31 16:33] LABS: Add Manual Diff / Slide Review NO; Basophils Absolute Auto 100 /uL (0-100); Basophils Percent Auto 1.9 % (0-2); Eosinophils Absolute Auto 200 /uL (0-450); Eosinophils Percent Auto 5.7 % (2-4); Hematocrit 38.3 % (36-46); Hemoglobin 12.5 g/dL (12.0-16.0); Lymphocytes Absolute Auto 1400 /uL (1100-4500); Lymphocytes Percent Auto 31.2 % (25-40); Mean Corpuscular HGB Conc 32.6 % (30-36); Mean Corpuscular Hemoglobin 24.2 PG (26-34); Mean Corpuscular Volume 74.2 fL (80-100); Monocytes Absolute Auto 600 /uL (0-900); Monocytes Percent Auto 14.1 % (3-14); Neutrophils Absolute Auto 2000 /uL (1500-7000); Neutrophils Percent Auto 47.1 % (50-75); Platelet Count 215 X10^3/uL (150-400); Red Blood Cell Count 5.16 X10^6/uL (4.0-5.2); Red Cell Distribution Width 18.6 % (11.6-14.8); White Blood Cell Count 4.3 X10^3/uL (4.5-11.0)
[2022-07-31 17:16] LABS: Alanine Aminotransferase 22 IU/L (<35); Albumin Globulin Ratio 1.4 (1.0-2.8); Alkaline Phosphatase 83 U/L (38-126); Aspartate Aminotransferase 35 IU/L (14-36); BUN Creatinine Ratio 9.7 (6-22); Bilirubin Total 0.4 mg/dL (0.2-1.3); Blood Urea Nitrogen 9 mg/dL (7-17); C-Reactive Protein Quant < 0.5 mg/dL (<1.0); Calcium 9.2 mg/dL (8.4-10.2); Carbon Dioxide 29 mmol/L (22-32); Chloride 103 mmol/L (98-107); Estimated Glomerular Filt Rate > 60 mL/min (>60); Globulin 2.8 g/dL (1.7-4.1); Glucose 100 mg/dL (70-100); HEMOLYSIS < 15 (0-50); Potassium 3.8 mmol/L (3.4-5.1); Sodium 140 mmol/L (137-145); Total Protein 6.8 g/dL (6.3-8.2)
[2022-07-31 17:22] LABS: Free T4, Direct Thyroxine 1.83 ng/dL (0.78-2.19)
[2022-07-31 17:36] LABS: Thyroid Stimulating Hormone 0.241 uIU/mL (0.47-4.68)
[2022-07-31 17:45] LABS: Erythrocyte Sedimentation Rate 9 MM/HR (0-20)
== END ==
PROVIDERS: PCP Internal Medicine; Referring Provider Internal Medicine; Visit Provider Internal Medicine
DX: E03.9 Hypothyroidism, unspecified (principal); G89.4 Chronic pain syndrome; I10 Essential (primary) hypertension; M51.37 Other intervertebral disc degeneration, lumbosacral region
CPT/HCPCS: 36415; 80053; 84439; 84443; 85025; 85651; 86140

== ENCOUNTER → 2022-08-08 17:23 | Outpatient (CLI) | payer OTHER, SELFPAY | PROVIDERS: PCP Internal Medicine; Referring Provider Internal Medicine; Visit Provider Internal Medicine | DX: Z23 Encounter for immunization (principal) | CPT/HCPCS: 90471; 90686 ==

== ENCOUNTER → 2022-12-05 11:54 | Outpatient (CLI) | payer OTHER, SELFPAY ==
--- NOTE | 2022-12-05 11:55 | DI.RAD.S_ITS ---
PROCEDURE: XR CERVICAL SPINE 2V OR 3V INDICATIONS: neck pain, posterior TECHNIQUE: 3 view(s) of the cervical spine were acquired. COMPARISON: None. FINDINGS: Bones: No fractures or dislocations to the T1 level. The lateral masses of C1 appear intact on the odontoid view. No suspicious bony lesions. Mild degenerative disc disease and facet arthropathy noted throughout the cervical spine. Mild bilateral C4-C5 and C5-C6 uncovertebral hypertrophy. Soft tissues: No prevertebral soft tissue swelling. Carotid endarterectomy postsurgical change. IMPRESSION: 1. Multilevel degenerative disc disease. 2. Multilevel facet arthropathy. 3. No fracture. No acute osseous lesion. If symptoms and/or clinical suspicion for pathology persists, evaluation with MRI should be considered for further assessment. Dictated by: Rachael Marshall MD, PhD on 12/05/2022 at 14:25 Approved by: Rachael Marshall MD, PhD on 12/05/2022 at 14:33
--- NOTE | 2022-12-05 11:55 | DI.RAD.S_ITS ---
PROCEDURE: XR THORACIC SPINE 3V INDICATIONS: back pain TECHNIQUE: 3 views of the thoracic spine were acquired. COMPARISON: [facility], CR, XR THORACIC SPINE 3V, 12/09/2019, 16:43. FINDINGS: Bones: No fractures or dislocations. No suspicious bony lesions. 12 pairs of ribs are noted, and appear intact where visualized. Moderate degenerative disc changes throughout the thoracic spine. Mild facet hypertrophy throughout the thoracic spine. Convex right scoliosis of the visualized lumbar spine. Soft tissues: No paravertebral stripe thickening. IMPRESSION: 1. Multilevel degenerative disc disease. 2. Multilevel facet arthropathy. 3. No fracture. No acute osseous lesion. If symptoms and/or clinical suspicion for pathology persists, evaluation with MRI should be considered for further assessment. Dictated by: Rachael Marshall MD, PhD on 12/05/2022 at 14:19 Approved by: Rachael Marshall MD, PhD on 12/05/2022 at 14:20
== END ==
PROVIDERS: PCP Internal Medicine; Referring Provider Internal Medicine; Visit Provider Internal Medicine
DX: M51.34 Other intervertebral disc degeneration, thoracic region (principal); M50.30 Other cervical disc degeneration, unspecified cervical region; M47.814 Spondylosis without myelopathy or radiculopathy, thoracic region; M47.812 Spondylosis without myelopathy or radiculopathy, cervical region; M54.9 Dorsalgia, unspecified
CPT/HCPCS: 72040; 72072

== ENCOUNTER 2023-02-18 09:21 | Emergency (ER) | payer OTHER, SELFPAY ==
[2023-02-18] VITALS (24 sets, daily range): BP systolic 153–205; BP diastolic 88–123; PULSE 51–67; RESP 8–29; TEMP 36.1; O2SAT 94–99
--- NOTE | 2023-02-18 09:41 | DI.RAD.S_ITS ---
PROCEDURE: XR CHEST 1V INDICATIONS: chest pain TECHNIQUE: One view of the chest was acquired. COMPARISON: [facility], CR, XR CHEST 1V, 06/24/2019, 9:09. FINDINGS: Surgical changes and devices: Surgical clips overlie the mediastinum. Lungs and pleura: Lungs are clear. No pleural effusions or pneumothorax. Mediastinum: Mediastinal contours appear normal. Heart size is normal. Bones and chest wall: No suspicious bony lesions. Overlying soft tissues appear unremarkable. IMPRESSION: No findings to explain patient's symptoms. Dictated by: Kemar Cho M.D. on 02/18/2023 at 9:05 Approved by: Kemar Cho M.D. on 02/18/2023 at 9:06
[2023-02-18] MEDS: ASPIRIN 81 MG CHEW TAB 324 MG PO (09:49)
[2023-02-18] MEDS: NITROGLYCERIN 0.4 MG SL TAB SL (09:53)
[2023-02-18 09:55] LABS: Add Manual Diff / Slide Review NO; Basophils Absolute Auto 100 /uL (0-100); Basophils Percent Auto 2.7 % (0-2); Eosinophils Absolute Auto 400 /uL (0-450); Eosinophils Percent Auto 10.9 % (2-4); Hematocrit 40.3 % (36-46); Hemoglobin 12.9 g/dL (12.0-16.0); Lymphocytes Absolute Auto 1300 /uL (1100-4500); Lymphocytes Percent Auto 32.2 % (25-40); Mean Corpuscular HGB Conc 32.1 % (30-36); Mean Corpuscular Hemoglobin 22.9 PG (26-34); Mean Corpuscular Volume 71.4 fL (80-100); Monocytes Absolute Auto 500 /uL (0-900); Monocytes Percent Auto 13.4 % (3-14); Neutrophils Absolute Auto 1700 /uL (1500-7000); Neutrophils Percent Auto 40.8 % (50-75); Platelet Count 249 X10^3/uL (150-400); Red Blood Cell Count 5.64 X10^6/uL (4.0-5.2); Red Cell Distribution Width 16.9 % (11.6-14.8); White Blood Cell Count 4.1 X10^3/uL (4.5-11.0)
[2023-02-18 10:02] LABS: Prothrombin Time 11.1 SECONDS (10.1-12.7)
[2023-02-18 10:05] LABS: PTT Partial Thromboplastin Tim 28 SECONDS (26-36)
[2023-02-18 10:06] LABS: Alanine Aminotransferase 23 IU/L (<35); Albumin 4.1 g/dL (3.5-5.0); Albumin Globulin Ratio 1.3 (1.0-2.8); Alkaline Phosphatase 96 U/L (38-126); Aspartate Aminotransferase 30 IU/L (14-36); BUN Creatinine Ratio 17.7 (6-22); Bilirubin Total 0.6 mg/dL (0.2-1.3); Blood Urea Nitrogen 17 mg/dL (7-17); Calcium 9.5 mg/dL (8.4-10.2); Carbon Dioxide 27 mmol/L (22-32); Chloride 103 mmol/L (98-107); Creatine Kinase 104 U/L (30-135); Estimated Glomerular Filt Rate > 60 mL/min (>60); Globulin 3.2 g/dL (1.7-4.1); Glucose 97 mg/dL (70-100); HEMOLYSIS < 15 (0-50); Lipase 184 U/L (23-300); Magnesium 2.1 mg/dL (1.6-2.3); Sodium 138 mmol/L (137-145); Total Protein 7.3 g/dL (6.3-8.2)
[2023-02-18 10:07] LABS: COVID19 -Nasal RAPID Negative (Negative)
[2023-02-18 10:17] LABS: Troponin I < 0.012 ng/mL (0.01-0.034)
[2023-02-18 10:21] LABS: CKMB % Relative Index 0.7 % (1.5-5.0); Creatine Kinase MB 0.74 ng/mL (<2.37)
[2023-02-18 10:44] LABS: NT-proBNP (BNP-Adult 18+) 157 pg/mL (<125)
--- NOTE | 2023-02-18 11:07 | ED.CHESTPAIN ---
HPI - Chest Pain General Chief Complaint: Chest Pain Stated Complaint: syncope t-1, low BP Time Seen by Provider: 02/18/23 10:22 Source: patient Mode of arrival: Ambulatory Limitations: no limitations History of Present Illness HPI narrative: This is a 57-year-old female with history of recurrent tongue cancer, treated surgically and with radiation in remission, hypertension, hypothyroidism, GERD, 1 episode of atrial fibrillation in 2009. Patient presents today with complaint of headache last night she took a Vicodin and shortly thereafter felt very lightheaded like she might pass out she sat herself down on the floor she did not pass out or lose consciousness but states that her vision got very dark and she felt very lightheaded. She can hear everyone around her she felt nauseated about an hour later and a little bit sweaty and then that resolved. She states she went to bed. She woke up this morning she had chest pressure in her left arm shoulder and axilla radiating down words, she denies any shortness of breath, she denies any substernal pain. No radiation elsewhere. No nausea, no vomiting, no diaphoresis. No swelling in her extremities. No issues with bowel movements, urination or other symptoms. She is not felt lightheaded or like she would pass out today. Patient states she took half of her usual metoprolol dose. She is quite hypertensive upon arrival. Patient notes that she does not take anything else for blood pressure but does take some diuretics. Patient has had partial tongue resection, skin grafts, hysterectomy, trach she is followed by hyperbaric treatments and radiation therapy. Patient's does note she had a cardiac catheterization in 2009 she would her episode of atrial fibrillation that was negative. She was released from Cardiology and follows with Dr. Escalona. She states her main allergy is to sulfa she states the majority of her other medication allergies are more adverse reactions. No tobacco, alcohol or illicit. She states she has not had similar symptoms in the past. Related Data Home Medications Medication Instructions Recorded Confirmed clonazepam 0.5 mg tablet 0.5 mg PO BEDTIME PRN anxiety 07/02/20 12/05/22 [ENSURE ] 4 scoopful PO TID PRN 07/30/20 12/05/22 dexamethasone 2 mg tablet 2 - 4 mg PO Q6H PRN pain 12/05/22 12/05/22 metoprolol succinate 50 mg 50 mg PO DAILY 12/05/22 12/05/22 tablet,extended release 24 hr Previous Rx's Medication Instructions Recorded methocarbamol 500 mg tablet 500 mg PO TID #30 tabs 07/22/20 tolterodine 2 mg capsule,extended 2 mg PO DAILY #30 caps 04/08/21 release 24 hr betamethasone dipropionate 0.05 % See Rx Instructions .Route 07/11/21 topical ointment .COMPLEX #15 grams buspirone 15 mg tablet 15 mg PO BID #180 tabs 03/03/22 Synthroid 88 mcg tablet 88 mcg PO DAILY #90 tabs 04/10/22 (levothyroxine) ibuprofen 600 mg tablet See Rx Instructions .Route 05/02/22 .COMPLEX #180 tabs spironolactone 50 mg tablet 50 mg PO DAILY #30 tabs 05/09/22 furosemide 20 mg tablet (Lasix) 20 mg PO QDAY PRN edema #90 tabs 08/31/22 pantoprazole 40 mg tablet,delayed 40 mg PO DAILY #90 tabs 01/15/23 release (Protonix) hydrocodone 7.5 mg-acetaminophen 15 ml PO Q4HP PRN pain #300 mL 01/25/23 325 mg/15 mL oral solution Allergies Allergy/AdvReac Type Severity Reaction Status Date / Time citalopram [CITALOPRAM] Allergy Severe CHEST PAIN Verified 02/18/23 09:41 propranolol [PROPRANOLOL] Allergy Severe CHEST PAIN Verified 02/18/23 09:41 AND HEADACHE succinylcholine Allergy Severe rhabdomyolo Verified 02/18/23 09:41 [SUCCINYLCHOLINE] sis DEBORA Inhibitors Allergy Mild COUGHING Verified 02/18/23 09:41 [DEBORA INHIBITORS] amoxicillin [AMOXICILLIN] Allergy Mild RASH Verified 02/18/23 09:41 lisinopril [LISINOPRIL] Allergy Mild COUGHING Verified 02/18/23 09:41 oxycodone [OXYCODONE] Allergy Mild headache Verified 02/18/23 09:41 paroxetine [PAROXETINE] Allergy Mild SEVERE Verified 02/18/23 09:41 HEADACHE Penicillins [PENICILLINS] Allergy Mild RASH Verified 02/18/23 09:41 pravastatin [PRAVASTATIN] Allergy Mild MUSCLE Verified 02/18/23 09:41 WEAKNESS prednisone [PREDNISONE] Allergy Mild PROJECTILE Verified 02/18/23 09:41 VOMITING sertraline [SERTRALINE] Allergy Mild WT GAIN Verified 02/18/23 09:41 simvastatin [SIMVASTATIN] Allergy Mild LEG PAIN Verified 02/18/23 09:41 Sulfa (Sulfonamide Allergy Mild JOINT PAIN Verified 02/18/23 09:41 Antibiotics) UPPER EXT. [SULFA (SULFONAMIDE ANTIBIOTICS)] amlodipine AdvReac Intermediate faitgue Verified 02/18/23 09:41 losartan AdvReac Intermediate leg Verified 02/18/23 09:41 weakness quinapril AdvReac Intermediate abdominal Verified 02/18/23 09:41 pain, nausea, bloating Review of Systems Review of Systems ROS Unobtainable: All systems reviewed & are unremarkable except as noted in HPI and below Patient History Medical History Anemia Anxiety (05/12/14) Atrial fibrillation (~2009) Chickenpox Chronic pain syndrome (~2012) Depression (09/15/14) Essential hypertension (10/19/15) Fibroids (~2002) Foot pain (~2012) GERD (gastroesophageal reflux disease) Hemorrhoids Hx of tongue cancer Hypothyroidism (~1994) Surgical History Anesthesia History of oral surgery (1997) History of oral surgery (2009) History of radical dissection of left side of neck S/P partial glossectomy Status post hysterectomy (08/2009) Family History Brother Diabetes mellitus CAD (coronary artery disease) Grandfather Diabetes mellitus Heart disease Mother Diabetes mellitus CAD (coronary artery disease) Grandmother No problems noted. Social History Smoking Status: Never smoker Smoking Status: Never smoker alcohol intake frequency: 0-2 drinks per day Substance Use Type: does not use Exam Narrative Exam Narrative: GENERAL: Alert and oriented x three, female in mild distress HEENT: Head normocephalic, atraumatic, EOMI, pupils reactive, face symmetric, moist mucous membranes, patient has prior trach scar and scars consistent with prior surgeries. NECK: Supple, full range of motion CARDIOVASCULAR: Regular rate and rhythm without murmurs, rubs or gallops. No JVD. No swelling bilateral lower extremities. RESPIRATORY: Breath sounds equal bilaterally, no wheezes, rales or rhonchi. No tachypnea or accessory muscle use. No difficulty with speech. ABDOMEN: Soft, nontender. Normoactive bowel sounds all 4 quadrants. No guarding or rebound, rigidity, no mass : No CVA tenderness EXTREMITIES: Normal range of motion, no clubbing or edema. Neurovascularly intact. Patient has significant scarring consistent with prior skin grafts. NEUROLOGICAL: Cranial nerves II through XII grossly intact. Moving all extremities SKIN: Warm, dry, no petechiae, no rashes or lesions. Initial Vital Signs Initial Vital Signs: Vital Signs Temperature 97.0 F L 02/18/23 09:25 Pulse Rate 60 02/18/23 09:25 Respiratory Rate 18 02/18/23 09:25 Blood Pressure 205/123 H 02/18/23 09:25 Pulse Oximetry 99 02/18/23 09:25 Oxygen Delivery Method Room Air 02/18/23 09:25 Course Orders Ordered: ED Orders 02/18/23 11:46 Trop I [Troponin I] Stat Discontinued Medications Aspirin (Aspirin 81 Mg Chew Tab) 324 mg PO NOW ONE Stop: 02/18/23 09:42 Last Admin: 02/18/23 09:49 Dose: 324 mg Documented By: DAVID Nitroglycerin (Nitroglycerin 0.4 Mg Sl Tab) 0.4 mg SL [id number] PRN PRN Reason: Chest Pain Last Admin: 02/18/23 09:53 Dose: 0.4 mg Documented By: DAVID Vital Signs Vital signs: Vital Signs - 8 hr 02/18/23 11:27 02/18/23 12:58 02/18/23 11:27 Pulse Rate 53 L 63 Pulse Rate [Orthostatic Lying] 55 L Pulse Rate [Orthostatic Sitting] 56 L Pulse Rate [Orthostatic Standing] 57 L Respiratory Rate 18 19 Blood Pressure 160/98 H Blood Pressure [Orthostatic Lying] 166/105 H Blood Pressure [Orthostatic Sitting] 161/105 H Blood Pressure [Orthostatic Standing] 153/100 H Pulse Oximetry 99 98 Oxygen Delivery Method Room Air 02/18/23 11:27 02/18/23 11:29 02/18/23 11:29 Pulse Rate 57 L Pulse Rate [Orthostatic Lying] Pulse Rate [Orthostatic Sitting] Pulse Rate [Orthostatic Standing] Respiratory Rate 18 Blood Pressure 166/105 H 161/105 H Blood Pressure [Orthostatic Lying] Blood Pressure [Orthostatic Sitting] Blood Pressure [Orthostatic Standing] Pulse Oximetry 97 Oxygen Delivery Method 02/18/23 11:30 02/18/23 11:30 02/18/23 11:54 Pulse Rate 58 L 54 L Pulse Rate [Orthostatic Lying] Pulse Rate [Orthostatic Sitting] Pulse Rate [Orthostatic Standing] Respiratory Rate 29 H 9 L Blood Pressure 153/100 H Blood Pressure [Orthostatic Lying] Blood Pressure [Orthostatic Sitting] Blood Pressure [Orthostatic Standing] Pulse Oximetry 96 98 Oxygen Delivery Method 02/18/23 11:54 02/18/23 12:00 02/18/23 12:01 Pulse Rate 53 L Pulse Rate [Orthostatic Lying] Pulse Rate [Orthostatic Sitting] Pulse Rate [Orthostatic Standing] Respiratory Rate 12 Blood Pressure 184/88 H 154/93 H Blood Pressure [Orthostatic Lying] Blood Pressure [Orthostatic Sitting] Blood Pressure [Orthostatic Standing] Pulse Oximetry 97 Oxygen Delivery Method 02/18/23 12:01 02/18/23 12:30 02/18/23 12:31 Pulse Rate 51 L 58 L 58 L Pulse Rate [Orthostatic Lying] Pulse Rate [Orthostatic Sitting] Pulse Rate [Orthostatic Standing] Respiratory Rate 9 L 13 10 L Blood Pressure Blood Pressure [Orthostatic Lying] Blood Pressure [Orthostatic Sitting] Blood Pressure [Orthostatic Standing] Pulse Oximetry 99 98 97 Oxygen Delivery Method 02/18/23 12:31 02/18/23 12:53 02/18/23 12:53 Pulse Rate 53 L Pulse Rate [Orthostatic Lying] Pulse Rate [Orthostatic Sitting] Pulse Rate [Orthostatic Standing] Respiratory Rate 13 Blood Pressure 162/110 H 160/98 H Blood Pressure [Orthostatic Lying] Blood Pressure [Orthostatic Sitting] Blood Pressure [Orthostatic Standing] Pulse Oximetry 99 Oxygen Delivery Method MDM - Chest Pain Lab Data 02/18/23 09:43 02/18/23 09:43 Labs: Lab Results 02/18/23 02/18/23 02/18/23 Range/Units 09:43 09:43 09:43 WBC 4.1 L (4.5-11.0) X10^3/uL RBC 5.64 H (4.0-5.2) X10^6/uL Hgb 12.9 (12.0-16.0) g/dL Hct 40.3 (36-46) % MCV 71.4 L (80-100) fL MCH 22.9 L (26-34) PG MCHC 32.1 (30-36) % RDW 16.9 H (11.6-14.8) % Plt Count 249 (150-400) X10^3/uL Neut % (Auto) 40.8 L (50-75) % Lymph % (Auto) 32.2 (25-40) % [place] % (Auto) 13.4 (3-14) % Eos % (Auto) 10.9 H (2-4) % Baso % (Auto) 2.7 H (0-2) % Neut # (Auto) 1700 (2092-4476) /uL Lymph # (Auto) 1300 (0724-7120) /uL [place] # (Auto) 500 (0-900) /uL Eos # (Auto) 400 (0-450) /uL Baso # (Auto) 100 (0-100) /uL PT 11.1 (10.1-12.7) SECONDS INR 1.0 (0.9-1.3) APTT 28 (26-36) SECONDS Sodium 138 (137-145) mmol/L Potassium 4.0 (3.4-5.1) mmol/L Chloride 103 (98-107) mmol/L Carbon Dioxide 27 (22-32) mmol/L BUN 17 (7-17) mg/dL Creatinine 0.96 (0.52-1.04) mg/dL Estimated GFR > 60 (>60) mL/min BUN/Creatinine Ratio 17.7 (6-22) Glucose 97 (70-100) mg/dL Calcium 9.5 (8.4-10.2) mg/dL Magnesium 2.1 (1.6-2.3) mg/dL Total Bilirubin 0.6 (0.2-1.3) mg/dL AST 30 (14-36) IU/L ALT 23 (<35) IU/L Alkaline Phosphatase 96 (38-126) U/L Total Creatine Kinase 104 (30-135) U/L CK-MB (CK-2) 0.74 (<2.37) ng/mL CK-MB (CK-2) Rel Index 0.7 L (1.5-5.0) % Troponin I < 0.012 (0.01-0.034) ng/mL NT-Pro-B Natriuret Pep (<125) pg/mL Total Protein 7.3 (6.3-8.2) g/dL Albumin 4.1 (3.5-5.0) g/dL Globulin 3.2 (1.7-4.1) g/dL Albumin/Globulin Ratio 1.3 (1.0-2.8) Lipase 184 (23-300) U/L SARS-CoV-2 (PCR) (Negative) 02/18/23 02/18/23 02/18/23 Range/Units 09:43 09:43 11:46 WBC (4.5-11.0) X10^3/uL RBC (4.0-5.2) X10^6/uL Hgb (12.0-16.0) g/dL Hct (36-46) % MCV (80-100) fL MCH (26-34) PG MCHC (30-36) % RDW (11.6-14.8) % Plt Count (150-400) X10^3/uL Neut % (Auto) (50-75) % Lymph % (Auto) (25-40) % [place] % (Auto) (3-14) % Eos % (Auto) (2-4) % Baso % (Auto) (0-2) % Neut # (Auto) (6961-7473) /uL Lymph # (Auto) (7739-5861) /uL [place] # (Auto) (0-900) /uL Eos # (Auto) (0-450) /uL Baso # (Auto) (0-100) /uL PT (10.1-12.7) SECONDS INR (0.9-1.3) APTT (26-36) SECONDS Sodium (137-145) mmol/L Potassium (3.4-5.1) mmol/L Chloride (98-107) mmol/L Carbon Dioxide (22-32) mmol/L BUN (7-17) mg/dL Creatinine (0.52-1.04) mg/dL Estimated GFR (>60) mL/min BUN/Creatinine Ratio (6-22) Glucose (70-100) mg/dL Calcium (8.4-10.2) mg/dL Magnesium (1.6-2.3) mg/dL Total Bilirubin (0.2-1.3) mg/dL AST (14-36) IU/L ALT (<35) IU/L Alkaline Phosphatase (38-126) U/L Total Creatine Kinase (30-135) U/L CK-MB (CK-2) (<2.37) ng/mL CK-MB (CK-2) Rel Index (1.5-5.0) % Troponin I < 0.012 (0.01-0.034) ng/mL NT-Pro-B Natriuret Pep 157 H (<125) pg/mL Total Protein (6.3-8.2) g/dL Albumin (3.5-5.0) g/dL Globulin (1.7-4.1) g/dL Albumin/Globulin Ratio (1.0-2.8) Lipase (23-300) U/L SARS-CoV-2 (PCR) Negative (Negative) Urine Dip Bedside Urine Glucose Negative Bedside Urine Bilirubin - Negative Bedside Urine Ketone - Negative Urine Specific [place] 1.010 Bedside Urine Occult Blood - Negative Bedside Urine pH 7.0 Bedside Urine Protein - Negative Bedside Urine Urobilinogen - Negative Bedside Urine Nitrite - Negative Bedside Urine Leukocytes - Negative Esterase Imaging Data Chest x-ray: Radiologist's Impression: [address] [address] XRay Report Signed Patient: Naye Muñoz MR#: [id number] : 1965 Acct:[id number] Age/Sex: 57 / F Date of Service: 02/18/23 Loc: ED Accession Number: [id number] ?? Procedure: XR chest 1V Ordering Provider: Nyla Brown D.O. PROCEDURE:? XR CHEST 1V ? INDICATIONS:? chest pain ? TECHNIQUE:? One view of the chest was acquired.? ? COMPARISON:? [facility], [place], XR CHEST 1V, 06/24/2019, 9:09. ? FINDINGS:? ? Surgical changes and devices:? Surgical clips overlie the mediastinum. ? Lungs and pleura:? Lungs are clear.? No pleural effusions or pneumothorax.? ? Mediastinum:? Mediastinal contours appear normal.? Heart size is normal.? ? Bones and chest wall:? No suspicious bony lesions.? Overlying soft tissues appear unremarkable.? ? IMPRESSION:? No findings to explain patient's symptoms. ? ? Dictated by: Kemar Cho M.D. on 02/18/2023 at 9:05 ? ? Approved by: Kemar Cho M.D. on 02/18/2023 at 9:06?? ECG Data Attestation: I personally reviewed and interpreted this ECG as follows: Interpretation: Sinus bradycardia rate of 54 [place] 132 QRS is [address] inverted T-wave in 3, V1 and V2. Patient has priors from 06/24/2019 which appears similar. Patient does not have any new elevation or depression noted. EKG 2. Sinus bradycardia rate of 54 [place] 132 QRS is 78 QTC 413. EKG appears similar to prior. MDM Narrative Medical decision making narrative: This is a 57-year-old female who presents with complaint of lightheadedness last night after she took a Vicodin for headache. A near syncopal episode which resolved and then woke up with chest pressure this morning. Patient symptoms resolved after a dose of nitro she was noted to be quite hypertensive systolic as well as diastolic today with a pressure of 205/123 even on recheck. Patient was given aspirin, dose of nitro pressures improved to the 150s to 170 systolic and more closer to 102 90s diastolic. She states symptoms have resolved she is not had any persistent symptoms. She notes she is a little under dose this morning for her blood pressure medication. Initial CBC, CMP LFTs, troponin and BNP are negative patient's COVID swab is negative chest x-ray does not show any pulmonary edema or other acute changes. Patient has a inverted T-wave in 3, V1 and V2 but appears similar to prior EKGs. She does not have any new or dynamic changes. Plan for repeat troponins and EKG. Patient does not have any dynamic or acute changes otherwise noted, P troponin is negative. Discussed chest pain observation overnight for stress testing in the morning. Patient states she had 1 about 9 months ago she defers and would like to return home. She has not had her 2nd half of her metoprolol she only took half of it this morning instead of her full dose. She elects to return home and take her medication rather than have the 2nd dose here. Patient's last cardiac workup was in 2009 I suspect there may be a potential more of hypertensive urgency than coronary artery disease with her symptoms today. Patient feels comfortable returning home, discussed return precautions. She is to have a low threshold for return. All questions answered. Discharge Plan Departure Patient Disposition: Home Clinical Impression: Chest pain, Hypertension Instructions: DI for Chest Pain Activity Restrictions/Additional Instructions: I hope you continue to feel better. Call Dr. Escalona office tomorrow for follow-up to discuss additional workup as needed. Continue to monitor your blood pressure regularly. Please take the 2nd half of your metoprolol when you get home. Continue your home medications as prescribed. Please call Dr. Escalona if you are asymptomatic but had blood pressure is elevated greater than 180/105 for recommendations for medication management. Please return for new or worsening chest pain, shortness of breath, lightheadedness or passing out, persistent vomiting, new swelling in her extremities or other new or concerning changes. Prescriptions: No Action betamethasone dipropionate 0.05 % ointment See Rx Instructions .ROUTE .COMPLEX Qty: 15 2RF Dose Instruction: APPLY SPARINGLY TO ARMS DAILY EVERY DAY Rx Instructions: APPLY SPARINGLY TO ARMS DAILY EVERY DAY buspirone 15 mg tablet 15 mg PO BID Qty: 180 3RF levothyroxine [Synthroid] 88 mcg tablet 88 mcg PO DAILY Qty: 90 3RF ibuprofen 600 mg tablet See Rx Instructions .ROUTE .COMPLEX Qty: 180 3RF Dose Instruction: TAKE 1 TABLET BY MOUTH TWICE A DAY NEEDED FOR PAIN Rx Instructions: TAKE 1 TABLET BY MOUTH TWICE A DAY NEEDED FOR PAIN furosemide [Lasix] 20 mg tablet 20 mg PO QDAY PRN (Reason: edema) Qty: 90 5RF pantoprazole [Protonix] 40 mg tablet,delayed release (DR/EC) 40 mg PO DAILY Qty: 90 3RF hydrocodone-acetaminophen 7.5-325 mg/15 mL solution 15 ml PO Q4HP PRN (Reason: pain) Qty: 300 0RF clonazepam 0.5 mg tablet 0.5 mg PO BEDTIME PRN (Reason: anxiety) Rx Instructions: administer 30 minutes before bedtime methocarbamol 500 mg tablet 500 mg PO TID Qty: 30 0RF tolterodine 2 mg capsule,extended release 24hr 2 mg PO DAILY Qty: 30 3RF spironolactone 50 mg tablet 50 mg PO DAILY Qty: 30 0RF [ENSURE ] 4 scoopful PO TID PRN dexamethasone 2 mg tablet 2 - 4 mg PO Q6H PRN (Reason: pain) Rx Instructions: Take one to two tablet by mouth up to every six hours as needed for jaw or back pain. metoprolol succinate 50 mg tablet extended release 24 hr 50 mg PO DAILY Referrals: Sharath Escalona MD [Primary Care Provider] - Stand Alone Forms: Patient Portal/API, Work Release Note
[2023-02-18 12:19] LABS: Troponin I < 0.012 ng/mL (0.01-0.034)
== END 2023-02-18 12:59 | disposition home or self-care (01) ==
PROVIDERS: Emergency Provider Emergency Medicine; Family Provider Internal Medicine; PCP Internal Medicine
DX: R07.9 Chest pain, unspecified (principal); I10 Essential (primary) hypertension; R00.1 Bradycardia, unspecified; Z20.822 Contact with and (suspected) exposure to COVID-19
CPT/HCPCS: 36415; 71045; 80053; 81003; 82550; 82553; 83690; 83735; 83880; 84484; 85025; 85610; 85730; 87635; 93005; 99284; C9803

== ENCOUNTER 2023-02-23 10:45 | Outpatient (RCR) | payer OTHER, SELFPAY ==
--- NOTE | 2022-12-15 15:34 | PT.OIE ---
Current Diagnoses Cervicalgia (12/15/22) Past Medical History (Last Updated 12/05/22 @ 11:43 by Sharath Escalona MD) Anemia Anxiety (05/12/14) Atrial fibrillation (~2009) Chickenpox Chronic pain syndrome (~2012) Depression (09/15/14) Essential hypertension (10/19/15) Fibroids (~2002) Foot pain (~2012) GERD (gastroesophageal reflux disease) Hemorrhoids Hx of tongue cancer Hypothyroidism (~1994) Past Surgical History (Last Reviewed 09/05/22 @ 11:33 by MINH Schroeder) Anesthesia History of oral surgery (1997) History of oral surgery (2009) History of radical dissection of left side of neck S/P partial glossectomy Status post hysterectomy (08/2009) Visit Care Team Role Provider Type Sharath Escalona MD Attending Provider Physician Family Provider Primary Care Provider Referring Provider Specialty: Internal Medicine Address: [address] [place] [address], [address], [facility] Email: [email or web address] Physical Therapy Initial Evaluation PT-OP-A Visit Information Start: 12/14/22 21:46 Freq: Status: Active Protocol: Document 12/15/22 14:04 AMB (Rec: 12/15/22 14:26 AMB [id number]) Out-Patient Physical Therapy Visit Information Visit Information Visit Type Initial Evaluation Visit Start Time 13:45 Visit Stop Time 14:30 Total Visit Minutes 45 Visit Number 1 PT-OP-B Current Condition Start: 12/14/22 21:46 Freq: Status: Active Protocol: Document 12/15/22 14:04 AMB (Rec: 12/15/22 14:26 AMB [id number]) Current Condition History of Current Condition Onset Date 1 month Current Complaints neck pain History of Current Condition Tongue CA with radiation in 1996 and 2009. 2018 had a jaw infection and they removed L pec minor to help and ever since then has had some amount of neck pain. Had a TRAN a month ago and the next morning has been having with neck pain with movement. Doesn't hurt if really careful. But even with lifting things can feel pain in the neck. 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 Once a month headache. Prior Treatments and Tests X-rays: degenerative disc disease multiple levels Treatment Goals Patient/Caregiver Goals Reduce pain Personal Factors Other Personal Factors That May Effect hx tongue CA with radiation, Therapy/Recovery jaw/pec minor surgery, known disc degeneration with history of herniated disc with R sided sx PT-OP-C Subjective Start: 12/14/22 21:46 Freq: Status: Active Protocol: Document 12/15/22 14:00 AMB (Rec: 12/15/22 15:15 AMB [id number]) Patient Questionnaires Neck Disability Index NDI Score 18 Neck Disability Index Impairment 20 to 39% Impaired (Score 10- 19) Quick Dash- Upper Extremity Quick Dash UE Score 9 Quick Dash UE Impairment 1 to 19% Impaired (Score 1-19) OP-PT Pain Assessment Comments Pain Comments 4/5 neck pain PT-OP-J Posture/Palpation/Skin Start: 12/14/22 21:46 Freq: Status: Active Protocol: Document 12/15/22 14:00 AMB (Rec: 12/15/22 15:37 AMB [id number]) Posture Evaluation Comments Posture Comments mild forward head/forward shoulder posture Palpation Assessment Location One Palpation Details pain and stiffness with R UPA at C3-5 Skin Assessment Other Assessments Skin Assessment Comments Pt with significant scar tissue from prior surgeries, especially on the left neck from the pec minor/jaw surgery . PT-OP-K Range of Motion Start: 12/14/22 21:46 Freq: Status: Active Protocol: Document 12/15/22 14:04 AMB (Rec: 12/15/22 14:26 AMB [id number]) Cervical Spine Range of Motion Cervical Spine Active Degrees Flexion 35 Extension 20 Rotation Left 60 Rotation Right 35 Comments pulls in front with extension in back with flexion PT-OP-M Strength Start: 12/14/22 21:46 Freq: Status: Active Protocol: Document 12/15/22 14:04 AMB (Rec: 12/15/22 14:26 AMB [id number]) Cervical Spine Strength Cervical Spine Manual Muscle Testing Comments can hold chin tuck in supine for 2 seconds Hand Line Driver/Pinch Strength Hand Dominance Hand Dominance Right Hand Strength Right Line Driver (lbs) 35 Comments 45 on L PT-OP-Q Treatments Start: 12/14/22 21:46 Freq: Status: Active Protocol: Document 12/15/22 14:00 AMB (Rec: 12/15/22 15:37 AMB [id number]) Therapeutic Exercises Sitting Exercises levator/scalene/UT stretch Reps/Minutes 30ea chin tuck Reps/Minutes 10 Comments heavy cues to begin with, then patient got it PT-OP-T Assessment and Plan Start: 12/14/22 21:46 Freq: Status: Active Protocol: Document 12/15/22 14:00 AMB (Rec: 12/25/22 15:32 AMB [id number]) Physical Therapy Assessment Rehab Potential Rehabilitation Potential Good Evaluation Complexity Number of Personal Factors/Comorbidities 3 or More Number of Body Systems Impaired 4 or More Clinical Presentation at Evaluation Stable Impairments Impairments Activity Tolerance,Functional Activities,Functional Mobility ,Pain,Posture,ROM,Strength Goals Two Impairment Pain Short Term Goal (STG) Naye will lift 10# from the floor to waist height without an increase in neck pain. STG Duration 4 weeks Jail Goal (LTG) Naye will drive for 30 minutes with 2/10 neck pain or less. LTG Duration 12 weeks One Impairment ROM Short Term Goal (STG) Naye will improve her cervical rotation ROM to at least 60 degrees bilaterally. STG Duration 4 weeks Agricultural Extension Officer Goal (LTG) Naye will improve her cervical flexion to at least 50 degrees without an increase in neck pain. LTG Duration 12 weeks Assessment Summary Assessment Naye attends physical therapy with 1 month history of increasing neck pain, worst when she moves her neck. She presents with reduced range motion and poor deep cervical flexion strength, along with postural changes likely related to her history of tongue and jaw surgery and radiation. She will benefit from physical therapy to improve her soft tissue and joint mobility, as well as reduce her postural changes and improve her neck strength. Naye does have a history of cervical disc herniation in the distant past and this may affect her progression in PT. Physical Therapy Plan Frequency and Duration Frequency of Treatment 2x/Week Duration of treatment (weeks) 12 Plan of Care Start Date 12/15/22 Plan of Care End Date 03/09/23 Therapeutic Interventions Therapeutic Interventions Home Exercise Program,Joint Mobilizations,Manual Therapy, Neuromuscular Re-education, Self-Care/Home Management,Soft Tissue Mobilization, Therapeutic Activities, Therapeutic Exercises Modalities Cold Pack/Ice Massage,Electric Stimulation,Hot Packs Next Visit Focus/Plan Next Note Type Treatment Note Next Visit Plan Follow up on neck stretches and chin tuck. Begin pec stretching as tolerated.
--- NOTE | 2022-12-15 15:37 | PT.OPPOC ---
Physical, Occupational & Speech Therapy At [facility] Current Diagnoses Cervicalgia (12/15/22) Visit Care Team Role Provider Type Sharath Escalona MD Attending Provider Physician Family Provider Primary Care Provider Referring Provider Specialty: Internal Medicine Address: [address] [place] [address], [address], [address] Email: [email or web address] Plan Of Care PT-OP-T Assessment and Plan Start: 12/14/22 21:46 Freq: Status: Active Protocol: Document 12/15/22 14:00 AMB (Rec: 12/25/22 15:32 AMB [id number]) Physical Therapy Assessment Rehab Potential Rehabilitation Potential Good Evaluation Complexity Number of Personal Factors/Comorbidities 3 or More Number of Body Systems Impaired 4 or More Clinical Presentation at Evaluation Stable Impairments Impairments Activity Tolerance,Functional Activities,Functional Mobility ,Pain,Posture,ROM,Strength Goals Two Impairment Pain Short Term Goal (STG) Naye will lift 10# from the floor to waist height without an increase in neck pain. STG Duration 4 weeks Prison Goal (LTG) Naye will drive for 30 minutes with 2/10 neck pain or less. LTG Duration 12 weeks One Impairment ROM Short Term Goal (STG) Naye will improve her cervical rotation ROM to at least 60 degrees bilaterally. STG Duration 4 weeks Secretary Goal (LTG) Naye will improve her cervical flexion to at least 50 degrees without an increase in neck pain. LTG Duration 12 weeks Assessment Summary Assessment Naye attends physical therapy with 1 month history of increasing neck pain, worst when she moves her neck. She presents with reduced range motion and poor deep cervical flexion strength, along with postural changes likely related to her history of tongue and jaw surgery and radiation. She will benefit from physical therapy to improve her soft tissue and joint mobility, as well as reduce her postural changes and improve her neck strength. Naye does have a history of cervical disc herniation in the distant past and this may affect her progression in PT. Physical Therapy Plan Frequency and Duration Frequency of Treatment 2x/Week Duration of treatment (weeks) 12 Plan of Care Start Date 12/15/22 Plan of Care End Date 03/09/23 Therapeutic Interventions Therapeutic Interventions Home Exercise Program,Joint Mobilizations,Manual Therapy, Neuromuscular Re-education, Self-Care/Home Management,Soft Tissue Mobilization, Therapeutic Activities, Therapeutic Exercises Modalities Cold Pack/Ice Massage,Electric Stimulation,Hot Packs Next Visit Focus/Plan Next Note Type Treatment Note Next Visit Plan Follow up on neck stretches and chin tuck. Begin pec stretching as tolerated. Plan of Care Dates Plan of Care Start Date 12/15/22 Plan of Care End Date 03/09/23 Electronically Signed by: Eliana Gonzalez, PT 12/25/22 [id number] If you are in agreement with this Plan of Care, please return a signed and dated copy. I have reviewed this Plan of Care and certify that the skilled therapy services above are required to meet the patient?s needs. Physician Signature Date Printed Name and Credentials Clinical Instructor Signature Printed Name and Credentials
--- NOTE | 2022-12-29 08:15 | PT.OTN ---
Current Diagnoses Cervicalgia (12/29/22) Physical Therapy Treatment Note PT-OP-A Visit Information Start: 12/14/22 21:46 Freq: Status: Active Protocol: Document 12/29/22 07:31 SP (Rec: 12/29/22 08:21 SP [id number]) Out-Patient Physical Therapy Visit Information Visit Information Visit Type Treatment Note Visit Start Time 07:31 Visit Stop Time 08:15 Total Visit Minutes 44 Visit Number 2 Number of BLENDING LINE ATTENDANT Visits 1 PT-OP-B Current Condition Start: 12/14/22 21:46 Freq: Status: Active Protocol: Document 12/15/22 14:04 AMB (Rec: 12/15/22 14:26 AMB [id number]) Current Condition History of Current Condition Onset Date 1 month Current Complaints neck pain History of Current Condition Tongue CA with radiation in 1996 and 2009. 2018 had a jaw infection and they removed L pec minor to help and ever since then has had some amount of neck pain. Had a TRAN a month ago and the next morning has been having with neck pain with movement. Doesn't hurt if really careful. But even with lifting things can feel pain in the neck. 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 Once a month headache. Prior Treatments and Tests X-rays: degenerative disc disease multiple levels Treatment Goals Patient/Caregiver Goals Reduce pain Personal Factors Other Personal Factors That May Effect hx tongue CA with radiation, Therapy/Recovery jaw/pec minor surgery, known disc degeneration with history of herniated disc with R sided sx PT-OP-C Subjective Start: 12/14/22 21:46 Freq: Status: Active Protocol: Document 12/29/22 07:31 SP (Rec: 12/29/22 08:21 SP [id number]) OP-PT Subjective Patient Comments Patient Comments Pt reports has headaches but doesn't limit her in doing activities. She reports doesn' t have next appt until 01/26 ( appts not available) and will check on cancellations/ waitinglist. She stated doing stretches but wants more can continue to do on own as well. PT-OP-J Posture/Palpation/Skin Start: 12/14/22 21:46 Freq: Status: Active Protocol: Document 12/15/22 14:00 AMB (Rec: 12/15/22 15:37 AMB [id number]) Posture Evaluation Comments Posture Comments mild forward head/forward shoulder posture Palpation Assessment Location One Palpation Details pain and stiffness with R UPA at C3-5 Skin Assessment Other Assessments Skin Assessment Comments Pt with significant scar tissue from prior surgeries, especially on the left neck from the pec minor/jaw surgery . PT-OP-K Range of Motion Start: 12/14/22 21:46 Freq: Status: Active Protocol: Document 12/15/22 14:04 AMB (Rec: 12/15/22 14:26 AMB [id number]) Cervical Spine Range of Motion Cervical Spine Active Degrees Flexion 35 Extension 20 Rotation Left 60 Rotation Right 35 Comments pulls in front with extension in back with flexion PT-OP-M Strength Start: 12/14/22 21:46 Freq: Status: Active Protocol: Document 12/15/22 14:04 AMB (Rec: 12/15/22 14:26 AMB [id number]) Cervical Spine Strength Cervical Spine Manual Muscle Testing Comments can hold chin tuck in supine for 2 seconds Hand Slater Apprentice/Pinch Strength Hand Dominance Hand Dominance Right Hand Strength Right Slater Apprentice (lbs) 35 Comments 45 on L PT-OP-Q Treatments Start: 12/14/22 21:46 Freq: Status: Active Protocol: Document 12/29/22 07:31 SP (Rec: 12/29/22 08:21 SP [id number]) Therapeutic Exercises Sitting Exercises cervical rotation Sitting Exercise Name initiated in PT pec stretch Sitting Exercise Name added to HEP-standing corner/ doorway Side bilateral Reps/Minutes 30 x2 Comments good feedback levator/scalene/UT stretch Sitting Exercise Name reviewed HEP Side bilateral Reps/Minutes 30ea Comments good feedback stretch chin tuck Sitting Exercise Name supine, during wall posture Reps/Minutes 5 SH x10 Comments good form Standing Exercises wall posture Standing Exercise Name added to HEP- arms side/ ER, relaxed shld Reps/Minutes 5SH x5 Comments good feedback interscap fac, open chest, cued TA/ LS, CS near wall fac ant Other Exercises self STMs Other Exercise Name post neck, scap w/ MWM head nod/turn Side bilateral Equipment Used racquetball roll, theracane Reps/Minutes 3 min Comments good feedback massage Manual Therapy Treatment Soft Tissue Mobilization scalp Body Location temporalis, light ear pull Comments cross fiber light friction- states does both herself all the time and helps decrease head tension. jaw Body Location masseter, sub mandible musculature Mobilization Type Myofascial Release,Sustained Pressure Intensity/Depth Superficial Body Position Hooklying Comments gentle light touch w/ ed self application intraoral sustained pressure with breath and pincer knead as needed for decrease muscle tension- good understanding as needed self and feedback to therapists if want further assist. Sensitive to light pressure. neck Body Location B SCM, SOR, UT, LS Mobilization Type Instrument Assisted,Myofascial Release,Strumming,Sustained Pressure Intensity/Depth Superficial Body Position Hooklying Comments manual, ed self applicsation use theracane neck and ball roll interscap Self-Care/Home Management Treatment Education Patient Education Body Mechanics,Home Exercise Program,Posture Other Education Time spent ed for posture sitting work and self corrections more Head/shld over pelvis awareness and ergonomics including screen height front little down to prevent forward head- good understanding. How use stretching and use theracane/ ball wall inter/post scap for self massage- good response PT-OP-T Assessment and Plan Start: 12/14/22 21:46 Freq: Status: Active Protocol: Document 12/29/22 07:31 SP (Rec: 12/29/22 08:21 SP [id number]) Physical Therapy Assessment Goals Two Impairment Pain Short Term Goal (STG) Naye will lift 10# from the floor to waist height without an increase in neck pain. STG Duration 4 weeks Material Clerk Goal (LTG) Naye will drive for 30 minutes with 2/10 neck pain or less. LTG Duration 12 weeks One Impairment ROM Short Term Goal (STG) Naye will improve her cervical rotation ROM to at least 60 degrees bilaterally. STG Duration 4 weeks Mcc Goal (LTG) Naye will improve her cervical flexion to at least 50 degrees without an increase in neck pain. LTG Duration 12 weeks Assessment Summary Assessment Pt good response to manual and ed on self application. Good feedback stretch/self massage review and application during work. Initiated wall posture, pec stretch for feedback carryover awareness postural corrections with good understanding, provided HOs. Physical Therapy Plan Frequency and Duration Frequency of Treatment 2x/Week Duration of treatment (weeks) 12 Plan of Care Start Date 12/15/22 Plan of Care End Date 03/09/23 Therapeutic Interventions Therapeutic Interventions Home Exercise Program,Joint Mobilizations,Manual Therapy, Neuromuscular Re-education, Self-Care/Home Management,Soft Tissue Mobilization, Therapeutic Activities, Therapeutic Exercises Modalities Cold Pack/Ice Massage,Electric Stimulation,Hot Packs Next Visit Focus/Plan Next Note Type Treatment Note Next Visit Plan Recheck stretching, self massage response. Follow up work station. Add TB shld ext to assist CS neutral, scap alignment for posturing support to neck open book with head turn.
--- NOTE | 2023-01-01 10:33 | PT.OTN ---
Current Diagnoses Cervicalgia (01/01/23) Physical Therapy Treatment Note PT-OP-A Visit Information Start: 12/14/22 21:46 Freq: Status: Active Protocol: Document 01/01/23 09:50 SP (Rec: 01/01/23 10:35 SP [id number]) Out-Patient Physical Therapy Visit Information Visit Information Visit Type Treatment Note Visit Start Time 09:50 Visit Stop Time 10:33 Total Visit Minutes 43 Visit Number 3 Number of STAGE SETTING PAINTER APPRENTICE Visits 2 PT-OP-B Current Condition Start: 12/14/22 21:46 Freq: Status: Active Protocol: Document 12/15/22 14:04 AMB (Rec: 12/15/22 14:26 AMB [id number]) Current Condition History of Current Condition Onset Date 1 month Current Complaints neck pain History of Current Condition Tongue CA with radiation in 1996 and 2009. 2018 had a jaw infection and they removed L pec minor to help and ever since then has had some amount of neck pain. Had a TRAN a month ago and the next morning has been having with neck pain with movement. Doesn't hurt if really careful. But even with lifting things can feel pain in the neck. 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 Once a month headache. Prior Treatments and Tests X-rays: degenerative disc disease multiple levels Treatment Goals Patient/Caregiver Goals Reduce pain Personal Factors Other Personal Factors That May Effect hx tongue CA with radiation, Therapy/Recovery jaw/pec minor surgery, known disc degeneration with history of herniated disc with R sided sx PT-OP-C Subjective Start: 12/14/22 21:46 Freq: Status: Active Protocol: Document 01/01/23 09:50 SP (Rec: 01/01/23 10:35 SP [id number]) OP-PT Subjective Patient Comments Patient Comments Pt reports no headaches today but having some right ear discomfort. PT-OP-J Posture/Palpation/Skin Start: 12/14/22 21:46 Freq: Status: Active Protocol: Document 12/15/22 14:00 AMB (Rec: 12/15/22 15:37 AMB [id number]) Posture Evaluation Comments Posture Comments mild forward head/forward shoulder posture Palpation Assessment Location One Palpation Details pain and stiffness with R UPA at C3-5 Skin Assessment Other Assessments Skin Assessment Comments Pt with significant scar tissue from prior surgeries, especially on the left neck from the pec minor/jaw surgery . PT-OP-K Range of Motion Start: 12/14/22 21:46 Freq: Status: Active Protocol: Document 12/15/22 14:04 AMB (Rec: 12/15/22 14:26 AMB [id number]) Cervical Spine Range of Motion Cervical Spine Active Degrees Flexion 35 Extension 20 Rotation Left 60 Rotation Right 35 Comments pulls in front with extension in back with flexion PT-OP-M Strength Start: 12/14/22 21:46 Freq: Status: Active Protocol: Document 12/15/22 14:04 AMB (Rec: 12/15/22 14:26 AMB [id number]) Cervical Spine Strength Cervical Spine Manual Muscle Testing Comments can hold chin tuck in supine for 2 seconds Hand Lead Shop Operator/Pinch Strength Hand Dominance Hand Dominance Right Hand Strength Right Lead Shop Operator (lbs) 35 Comments 45 on L PT-OP-Q Treatments Start: 12/14/22 21:46 Freq: Status: Active Protocol: Document 01/01/23 09:50 SP (Rec: 01/01/23 10:35 SP [id number]) Therapeutic Exercises Supine Exercises chin tuck Supine Exercise Name added lift, needed support Resistance therapist support (10%A) for unweight head from table Reps/Minutes 5SH x5 Comments weakness DNF, tends to perform cervical protraction. Sitting Exercises cervical rotation Sitting Exercise Name initiated in PT: supine post manual STMs Comments improved R rotation post manual levator/scalene/UT stretch Sitting Exercise Name UT, LS, scalene: HEP reviewed Side bilateral Reps/Minutes 30ea Comments cued slow stretch chin tuck Sitting Exercise Name supine, during wall posture Reps/Minutes 5 SH x10 Comments good form Standing Exercises wall posture Standing Exercise Name added to HEP- arms side/ ER, relaxed shld Reps/Minutes 5SH x5 Comments good feedback interscap fac, open chest, cued TA/ LS, CS near wall fac ant Manual Therapy Treatment Soft Tissue Mobilization neck Body Location B SCM, SOR, UT, LS, scalene Mobilization Type Instrument Assisted,Myofascial Release,Strumming,Sustained Pressure Intensity/Depth Superficial Body Position Hooklying Comments manual, ed self application use theracane. Self-Care/Home Management Treatment Education Patient Education Body Mechanics,Home Exercise Program,Posture Other Education Ed work station monitor added openbook, reviewed scalend/SCM/UT/ LS stretches. Cued Scalene: opp hand over distal neck musculture at clavicle anchor the head turn and look up. PT-OP-T Assessment and Plan Start: 12/14/22 21:46 Freq: Status: Active Protocol: Document 01/01/23 09:50 SP (Rec: 01/01/23 10:35 SP [id number]) Physical Therapy Assessment Goals Two Impairment Pain Short Term Goal (STG) Naye will lift 10# from the floor to waist height without an increase in neck pain. STG Duration 4 weeks Nursing Home Goal (LTG) Naye will drive for 30 minutes with 2/10 neck pain or less. LTG Duration 12 weeks One Impairment ROM Short Term Goal (STG) Naye will improve her cervical rotation ROM to at least 60 degrees bilaterally. STG Duration 4 weeks Nursing Home Goal (LTG) Naye will improve her cervical flexion to at least 50 degrees without an increase in neck pain. LTG Duration 12 weeks Assessment Summary Assessment Pt good feedback to manual neck and how can self apply. Weakness with chin tuck lift, Min A support able to complete , discussed increase Chin nod hold but not forceful (DNF not SCM recruitment), hand over hand SCM and improved form. Reviewed application on during wall posture, good interscap and neutral CS positioning. Improved understanding posturing at work station and adjust monitor little lower to limit cervical protraction. Physical Therapy Plan Frequency and Duration Frequency of Treatment 2x/Week Duration of treatment (weeks) 12 Plan of Care Start Date 12/15/22 Plan of Care End Date 03/09/23 Next Visit Focus/Plan Next Note Type Treatment Note Next Visit Plan REcheck stretching, openbook, DNF holds and add lift if able . Add TB shld ext if scap stabilization add head turn then nods for glide.
--- NOTE | 2023-01-05 10:35 | PT.OTN ---
Current Diagnoses Cervicalgia (01/05/23) Physical Therapy Treatment Note PT-OP-A Visit Information Start: 12/14/22 21:46 Freq: Status: Active Protocol: Document 01/05/23 09:49 AMB (Rec: 01/05/23 10:34 AMB [id number]) Out-Patient Physical Therapy Visit Information Visit Information Visit Type Treatment Note Visit Start Time 09:50 Visit Stop Time 10:30 Total Visit Minutes 40 Visit Number 4 Number of FLEXO PRESS OPERATOR Visits 0 PT-OP-B Current Condition Start: 12/14/22 21:46 Freq: Status: Active Protocol: Document 12/15/22 14:04 AMB (Rec: 12/15/22 14:26 AMB [id number]) Current Condition History of Current Condition Onset Date 1 month Current Complaints neck pain History of Current Condition Tongue CA with radiation in 1996 and 2009. 2018 had a jaw infection and they removed L pec minor to help and ever since then has had some amount of neck pain. Had a TRAN a month ago and the next morning has been having with neck pain with movement. Doesn't hurt if really careful. But even with lifting things can feel pain in the neck. 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 Once a month headache. Prior Treatments and Tests X-rays: degenerative disc disease multiple levels Treatment Goals Patient/Caregiver Goals Reduce pain Personal Factors Other Personal Factors That May Effect hx tongue CA with radiation, Therapy/Recovery jaw/pec minor surgery, known disc degeneration with history of herniated disc with R sided sx PT-OP-C Subjective Start: 12/14/22 21:46 Freq: Status: Active Protocol: Document 01/05/23 09:49 AMB (Rec: 01/05/23 10:34 AMB [id number]) OP-PT Subjective Patient Comments Patient Comments Pt notes tightenss in R>L shoulders neck today. No headache today. PT-OP-J Posture/Palpation/Skin Start: 12/14/22 21:46 Freq: Status: Active Protocol: Document 12/15/22 14:00 AMB (Rec: 12/15/22 15:37 AMB [id number]) Posture Evaluation Comments Posture Comments mild forward head/forward shoulder posture Palpation Assessment Location One Palpation Details pain and stiffness with R UPA at C3-5 Skin Assessment Other Assessments Skin Assessment Comments Pt with significant scar tissue from prior surgeries, especially on the left neck from the pec minor/jaw surgery . PT-OP-K Range of Motion Start: 12/14/22 21:46 Freq: Status: Active Protocol: Document 12/15/22 14:04 AMB (Rec: 12/15/22 14:26 AMB [id number]) Cervical Spine Range of Motion Cervical Spine Active Degrees Flexion 35 Extension 20 Rotation Left 60 Rotation Right 35 Comments pulls in front with extension in back with flexion PT-OP-M Strength Start: 12/14/22 21:46 Freq: Status: Active Protocol: Document 12/15/22 14:04 AMB (Rec: 12/15/22 14:26 AMB [id number]) Cervical Spine Strength Cervical Spine Manual Muscle Testing Comments can hold chin tuck in supine for 2 seconds Hand Social Services Designee/Pinch Strength Hand Dominance Hand Dominance Right Hand Strength Right Social Services Designee (lbs) 35 Comments 45 on L PT-OP-Q Treatments Start: 12/14/22 21:46 Freq: Status: Active Protocol: Document 01/05/23 09:49 AMB (Rec: 01/05/23 10:34 AMB [id number]) Therapeutic Exercises Sidelying Exercises open book Side bilateral Reps/Minutes 2x5 Comments cued cervical rotation Sitting Exercises pec stretch Sitting Exercise Name added to HEP-standing corner/ doorway Side bilateral Reps/Minutes 30 x2 Comments good feedback levator/scalene/UT stretch Sitting Exercise Name UT, LS, scalene: HEP reviewed Side bilateral Reps/Minutes 30ea Comments cued slow stretch chin tuck Sitting Exercise Name supine, during wall posture Reps/Minutes 5 SH x10 Comments good form Standing Exercises wall posture Standing Exercise Name added to HEP- arms side/ ER, relaxed shld Reps/Minutes 5SH x5 Comments good feedback interscap fac, open chest, cued TA/ LS, CS near wall fac ant Manual Therapy Treatment Soft Tissue Mobilization neck Body Location B SCM, SOR, UT, LS, scalene Mobilization Type Instrument Assisted,Myofascial Release,Strumming,Sustained Pressure Intensity/Depth Superficial Body Position Hooklying Comments manual, ed self application use theracane. PT-OP-T Assessment and Plan Start: 12/14/22 21:46 Freq: Status: Active Protocol: Document 01/05/23 09:49 AMB (Rec: 01/05/23 10:34 AMB [id number]) Physical Therapy Assessment Goals Two Impairment Pain Short Term Goal (STG) Naye will lift 10# from the floor to waist height without an increase in neck pain. STG Duration 4 weeks Whizzer Operator Goal (LTG) Naye will drive for 30 minutes with 2/10 neck pain or less. LTG Duration 12 weeks One Impairment ROM Short Term Goal (STG) Naye will improve her cervical rotation ROM to at least 60 degrees bilaterally. STG Duration 4 weeks Whizzer Operator Goal (LTG) Naye will improve her cervical flexion to at least 50 degrees without an increase in neck pain. LTG Duration 12 weeks Assessment Summary Assessment Pt with hand pain with gripping theraband, tolerated hand weights better. Back pain with some wall posture exercises today. Overall exercises are going well, continues to have tightness pain in ant chest, will work on strengthening scapular stabilizers more. Physical Therapy Plan Frequency and Duration Frequency of Treatment 2x/Week Duration of treatment (weeks) 12 Plan of Care Start Date 12/15/22 Plan of Care End Date 03/09/23 Therapeutic Interventions Therapeutic Interventions Home Exercise Program,Joint Mobilizations,Manual Therapy, Neuromuscular Re-education, Self-Care/Home Management,Soft Tissue Mobilization, Therapeutic Activities, Therapeutic Exercises Modalities Cold Pack/Ice Massage,Electric Stimulation,Hot Packs Next Visit Focus/Plan Next Note Type Treatment Note Next Visit Plan REcheck stretching, openbook, DNF holds and add lift if able . Add TB shld ext if scap stabilization add head turn then nods for glide.
--- NOTE | 2023-01-09 18:44 | PT.OTN ---
Current Diagnoses Cervicalgia (01/09/23) Physical Therapy Treatment Note PT-OP-A Visit Information Start: 12/14/22 21:46 Freq: Status: Active Protocol: Document 01/09/23 09:53 AMB (Rec: 01/09/23 10:32 AMB [id number]) Out-Patient Physical Therapy Visit Information Visit Information Visit Type Treatment Note Visit Start Time 09:45 Visit Stop Time 10:15 Total Visit Minutes 30 Visit Number 5 PT-OP-B Current Condition Start: 12/14/22 21:46 Freq: Status: Active Protocol: Document 12/15/22 14:04 AMB (Rec: 12/15/22 14:26 AMB [id number]) Current Condition History of Current Condition Onset Date 1 month Current Complaints neck pain History of Current Condition Tongue CA with radiation in 1996 and 2009. 2018 had a jaw infection and they removed L pec minor to help and ever since then has had some amount of neck pain. Had a TRAN a month ago and the next morning has been having with neck pain with movement. Doesn't hurt if really careful. But even with lifting things can feel pain in the neck. 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 Once a month headache. Prior Treatments and Tests X-rays: degenerative disc disease multiple levels Treatment Goals Patient/Caregiver Goals Reduce pain Personal Factors Other Personal Factors That May Effect hx tongue CA with radiation, Therapy/Recovery jaw/pec minor surgery, known disc degeneration with history of herniated disc with R sided sx PT-OP-C Subjective Start: 12/14/22 21:46 Freq: Status: Active Protocol: Document 01/09/23 09:53 AMB (Rec: 01/09/23 10:32 AMB [id number]) OP-PT Subjective Patient Comments Patient Comments Pt notes increased pain after last visit. Thinks it was the lifting PT-OP-J Posture/Palpation/Skin Start: 12/14/22 21:46 Freq: Status: Active Protocol: Document 12/15/22 14:00 AMB (Rec: 12/15/22 15:37 AMB [id number]) Posture Evaluation Comments Posture Comments mild forward head/forward shoulder posture Palpation Assessment Location One Palpation Details pain and stiffness with R UPA at C3-5 Skin Assessment Other Assessments Skin Assessment Comments Pt with significant scar tissue from prior surgeries, especially on the left neck from the pec minor/jaw surgery . PT-OP-K Range of Motion Start: 12/14/22 21:46 Freq: Status: Active Protocol: Document 12/15/22 14:04 AMB (Rec: 12/15/22 14:26 AMB [id number]) Cervical Spine Range of Motion Cervical Spine Active Degrees Flexion 35 Extension 20 Rotation Left 60 Rotation Right 35 Comments pulls in front with extension in back with flexion PT-OP-M Strength Start: 12/14/22 21:46 Freq: Status: Active Protocol: Document 12/15/22 14:04 AMB (Rec: 12/15/22 14:26 AMB [id number]) Cervical Spine Strength Cervical Spine Manual Muscle Testing Comments can hold chin tuck in supine for 2 seconds Hand Healthcare Financial Analyst/Pinch Strength Hand Dominance Hand Dominance Right Hand Strength Right Healthcare Financial Analyst (lbs) 35 Comments 45 on L PT-OP-Q Treatments Start: 12/14/22 21:46 Freq: Status: Active Protocol: Document 01/09/23 09:53 AMB (Rec: 01/09/23 10:32 AMB [id number]) Therapeutic Exercises Sitting Exercises levator/scalene/UT stretch Sitting Exercise Name UT, LS, scalene: HEP reviewed Side bilateral Reps/Minutes 30ea Comments cued slow stretch Manual Therapy Treatment Soft Tissue Mobilization neck Body Location L>R SCM, UT, LS, scalene Mobilization Type Instrument Assisted,Myofascial Release,Strumming,Sustained Pressure Intensity/Depth Superficial Body Position Hooklying Comments manual, ed self application use theracane. PT-OP-T Assessment and Plan Start: 12/14/22 21:46 Freq: Status: Active Protocol: Document 01/09/23 09:45 AMB (Rec: 01/10/23 18:44 AMB [id number]) Physical Therapy Assessment Goals Two Impairment Pain Short Term Goal (STG) Naye will lift 10# from the floor to waist height without an increase in neck pain. STG Duration 4 weeks Director Ge[employer] Goal (LTG) Naye will drive for 30 minutes with 2/10 neck pain or less. LTG Duration 12 weeks One Impairment ROM Short Term Goal (STG) Naye will improve her cervical rotation ROM to at least 60 degrees bilaterally. STG Duration 4 weeks Director [employer] Goal (LTG) Naey will improve her cervical flexion to at least 50 degrees without an increase in neck pain. LTG Duration 12 weeks Assessment Summary Assessment Naye had increased pain after last visit, so focused more on MFR and stretching today. Pt is wondering if she has fibromyalgia. Physical Therapy Plan Next Visit Focus/Plan Next Note Type Treatment Note Next Visit Plan REcheck stretching, openbook, DNF holds and add lift if able . Challenged with TB due to hand pain, but handweights increased shoulder pain.
--- NOTE | 2023-01-23 13:40 | PT.OTN ---
Current Diagnoses Cervicalgia (01/23/23) Physical Therapy Treatment Note PT-OP-A Visit Information Start: 12/14/22 21:46 Freq: Status: Active Protocol: Document 01/23/23 11:22 AMB (Rec: 01/23/23 11:58 AMB [id number]) Out-Patient Physical Therapy Visit Information Visit Information Visit Type Treatment Note Visit Start Time 11:15 Visit Stop Time 11:45 Total Visit Minutes 30 Visit Number 6 PT-OP-B Current Condition Start: 12/14/22 21:46 Freq: Status: Active Protocol: Document 12/15/22 14:04 AMB (Rec: 12/15/22 14:26 AMB [id number]) Current Condition History of Current Condition Onset Date 1 month Current Complaints neck pain History of Current Condition Tongue CA with radiation in 1996 and 2009. 2018 had a jaw infection and they removed L pec minor to help and ever since then has had some amount of neck pain. Had a TRAN a month ago and the next morning has been having with neck pain with movement. Doesn't hurt if really careful. But even with lifting things can feel pain in the neck. 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 Once a month headache. Prior Treatments and Tests X-rays: degenerative disc disease multiple levels Treatment Goals Patient/Caregiver Goals Reduce pain Personal Factors Other Personal Factors That May Effect hx tongue CA with radiation, Therapy/Recovery jaw/pec minor surgery, known disc degeneration with history of herniated disc with R sided sx PT-OP-C Subjective Start: 12/14/22 21:46 Freq: Status: Active Protocol: Document 01/23/23 11:15 AMB (Rec: 01/23/23 13:36 AMB [id number]) OP-PT Subjective Patient Comments Patient Comments Pt reports over the past week she feels less tension in her neck and has been better able to turn her head/has less pain overall. PT-OP-J Posture/Palpation/Skin Start: 12/14/22 21:46 Freq: Status: Active Protocol: Document 12/15/22 14:00 AMB (Rec: 12/15/22 15:37 AMB [id number]) Posture Evaluation Comments Posture Comments mild forward head/forward shoulder posture Palpation Assessment Location One Palpation Details pain and stiffness with R UPA at C3-5 Skin Assessment Other Assessments Skin Assessment Comments Pt with significant scar tissue from prior surgeries, especially on the left neck from the pec minor/jaw surgery . PT-OP-K Range of Motion Start: 12/14/22 21:46 Freq: Status: Active Protocol: Document 12/15/22 14:04 AMB (Rec: 12/15/22 14:26 AMB [id number]) Cervical Spine Range of Motion Cervical Spine Active Degrees Flexion 35 Extension 20 Rotation Left 60 Rotation Right 35 Comments pulls in front with extension in back with flexion PT-OP-M Strength Start: 12/14/22 21:46 Freq: Status: Active Protocol: Document 12/15/22 14:04 AMB (Rec: 12/15/22 14:26 AMB [id number]) Cervical Spine Strength Cervical Spine Manual Muscle Testing Comments can hold chin tuck in supine for 2 seconds Hand Health Plan Specialist/Pinch Strength Hand Dominance Hand Dominance Right Hand Strength Right Health Plan Specialist (lbs) 35 Comments 45 on L PT-OP-Q Treatments Start: 12/14/22 21:46 Freq: Status: Active Protocol: Document 01/23/23 11:15 AMB (Rec: 01/23/23 13:36 AMB [id number]) Therapeutic Exercises Sitting Exercises pec stretch Sitting Exercise Name added to HEP-standing corner/ doorway Side bilateral Reps/Minutes 30 x2 Comments differing angles 45 and 90 levator/scalene/UT stretch Sitting Exercise Name UT, LS, scalene: HEP reviewed Side bilateral Reps/Minutes 30ea Comments cued slow stretch chin tuck Sitting Exercise Name supine, during wall posture Reps/Minutes 5 SH x10 Comments good form Manual Therapy Treatment Joint Mobilizations contract relax Comments for cervical rotation PT-OP-T Assessment and Plan Start: 12/14/22 21:46 Freq: Status: Active Protocol: Document 01/23/23 11:22 AMB (Rec: 01/23/23 11:58 AMB [id number]) Physical Therapy Assessment Goals Two Impairment Pain Short Term Goal (STG) Naye will lift 10# from the floor to waist height without an increase in neck pain. STG Duration 4 weeks Manager Medicare Goal (LTG) Naye will drive for 30 minutes with 2/10 neck pain or less. LTG Duration MET One Impairment ROM Short Term Goal (STG) Naye will improve her cervical rotation ROM to at least 60 degrees bilaterally. STG Duration R 55, L 70, progress made Manager Medicare Goal (LTG) Naye will improve her cervical flexion to at least 50 degrees without an increase in neck pain. LTG Duration MET: 55 Assessment Summary Assessment Pt improved with range from eval (35 to 55d rotation R). Overall improving, but does have limited range in comparison to the left ( 70degrees). Physical Therapy Plan Frequency and Duration Frequency of Treatment 2x/Week Duration of treatment (weeks) 12 Plan of Care Start Date 12/15/22 Plan of Care End Date 03/09/23 Therapeutic Interventions Therapeutic Interventions Home Exercise Program,Joint Mobilizations,Manual Therapy, Neuromuscular Re-education, Self-Care/Home Management,Soft Tissue Mobilization, Therapeutic Activities, Therapeutic Exercises Modalities Cold Pack/Ice Massage,Electric Stimulation,Hot Packs Next Visit Focus/Plan Next Note Type Treatment Note Next Visit Plan REcheck stretching, openbook, DNF holds and add lift if able . Challenged with TB due to hand pain, but handweights increased shoulder pain.
--- NOTE | 2023-02-09 11:19 | PT.OTN ---
Current Diagnoses Cervicalgia (02/09/23) Physical Therapy Treatment Note PT-OP-A Visit Information Start: 12/14/22 21:46 Freq: Status: Active Protocol: Document 02/09/23 10:35 AMB (Rec: 02/09/23 11:18 AMB [id number]) Out-Patient Physical Therapy Visit Information Visit Information Visit Type Treatment Note Visit Start Time 11:15 Visit Stop Time 11:45 Total Visit Minutes 30 Visit Number 7 PT-OP-B Current Condition Start: 12/14/22 21:46 Freq: Status: Active Protocol: Document 12/15/22 14:04 AMB (Rec: 12/15/22 14:26 AMB [id number]) Current Condition History of Current Condition Onset Date 1 month Current Complaints neck pain History of Current Condition Tongue CA with radiation in 1996 and 2009. 2018 had a jaw infection and they removed L pec minor to help and ever since then has had some amount of neck pain. Had a TRAN a month ago and the next morning has been having with neck pain with movement. Doesn't hurt if really careful. But even with lifting things can feel pain in the neck. 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 Once a month headache. Prior Treatments and Tests X-rays: degenerative disc disease multiple levels Treatment Goals Patient/Caregiver Goals Reduce pain Personal Factors Other Personal Factors That May Effect hx tongue CA with radiation, Therapy/Recovery jaw/pec minor surgery, known disc degeneration with history of herniated disc with R sided sx PT-OP-C Subjective Start: 12/14/22 21:46 Freq: Status: Active Protocol: Document 02/09/23 10:35 AMB (Rec: 02/09/23 11:18 AMB [id number]) OP-PT Subjective Patient Comments Patient Comments Pt reports she is doing well. Continues to have pain and stiffnes but not at the levels she was having last month. PT-OP-J Posture/Palpation/Skin Start: 12/14/22 21:46 Freq: Status: Active Protocol: Document 12/15/22 14:00 AMB (Rec: 12/15/22 15:37 AMB [id number]) Posture Evaluation Comments Posture Comments mild forward head/forward shoulder posture Palpation Assessment Location One Palpation Details pain and stiffness with R UPA at C3-5 Skin Assessment Other Assessments Skin Assessment Comments Pt with significant scar tissue from prior surgeries, especially on the left neck from the pec minor/jaw surgery . PT-OP-K Range of Motion Start: 12/14/22 21:46 Freq: Status: Active Protocol: Document 12/15/22 14:04 AMB (Rec: 12/15/22 14:26 AMB [id number]) Cervical Spine Range of Motion Cervical Spine Active Degrees Flexion 35 Extension 20 Rotation Left 60 Rotation Right 35 Comments pulls in front with extension in back with flexion PT-OP-M Strength Start: 12/14/22 21:46 Freq: Status: Active Protocol: Document 12/15/22 14:04 AMB (Rec: 12/15/22 14:26 AMB [id number]) Cervical Spine Strength Cervical Spine Manual Muscle Testing Comments can hold chin tuck in supine for 2 seconds Hand Women'S Activities Adviser/Pinch Strength Hand Dominance Hand Dominance Right Hand Strength Right Women'S Activities Adviser (lbs) 35 Comments 45 on L PT-OP-Q Treatments Start: 12/14/22 21:46 Freq: Status: Active Protocol: Document 02/09/23 10:35 AMB (Rec: 02/09/23 11:18 AMB [id number]) Manual Therapy Treatment Soft Tissue Mobilization neck Body Location L>R SCM, UT, LS, scalene Mobilization Type Instrument Assisted,Myofascial Release,Strumming,Sustained Pressure Intensity/Depth Superficial Body Position Hooklying Comments manual, ed self application use theracane. Joint Mobilizations contract relax Comments for cervical rotation PT-OP-T Assessment and Plan Start: 12/14/22 21:46 Freq: Status: Active Protocol: Document 02/09/23 10:35 AMB (Rec: 02/09/23 11:18 AMB [id number]) Physical Therapy Assessment Goals Two Impairment Pain Short Term Goal (STG) Naye will lift 10# from the floor to waist height without an increase in neck pain. STG Duration 4 weeks Railroad Car Cleaner Goal (LTG) Naye will drive for 30 minutes with 2/10 neck pain or less. LTG Duration MET One Impairment ROM Short Term Goal (STG) Naye will improve her cervical rotation ROM to at least 60 degrees bilaterally. STG Duration R 55, L 70, progress made [facility] Goal (LTG) Naye will improve her cervical flexion to at least 50 degrees without an increase in neck pain. LTG Duration MET: 55 Assessment Summary Assessment Naye continues to have restricted cervical rotation to the R but is improving. Pt felt improvement s/p manual with better ROM. Physical Therapy Plan Frequency and Duration Frequency of Treatment 2x/Week Duration of treatment (weeks) 12 Plan of Care Start Date 12/15/22 Plan of Care End Date 03/09/23 Therapeutic Interventions Therapeutic Interventions Home Exercise Program,Joint Mobilizations,Manual Therapy, Neuromuscular Re-education, Self-Care/Home Management,Soft Tissue Mobilization, Therapeutic Activities, Therapeutic Exercises Modalities Cold Pack/Ice Massage,Electric Stimulation,Hot Packs Next Visit Focus/Plan Next Note Type Treatment Note Next Visit Plan REcheck stretching, openbook, DNF holds and add lift if able . Challenged with TB due to hand pain, but handweights increased shoulder pain.
--- NOTE | 2023-02-23 15:50 | PT.OTN ---
Current Diagnoses Cervicalgia (02/23/23) Physical Therapy Treatment Note PT-OP-A Visit Information Start: 12/14/22 21:46 Freq: Status: Active Protocol: Document 02/23/23 10:46 AMB (Rec: 02/23/23 11:55 AMB [id number]) Out-Patient Physical Therapy Visit Information Visit Information Visit Type Treatment Note Visit Start Time 10:45 Visit Stop Time 11:30 Total Visit Minutes 45 Visit Number 8 PT-OP-B Current Condition Start: 12/14/22 21:46 Freq: Status: Active Protocol: Document 12/15/22 14:04 AMB (Rec: 12/15/22 14:26 AMB [id number]) Current Condition History of Current Condition Onset Date 1 month Current Complaints neck pain History of Current Condition Tongue CA with radiation in 1996 and 2009. 2018 had a jaw infection and they removed L pec minor to help and ever since then has had some amount of neck pain. Had a TRAN a month ago and the next morning has been having with neck pain with movement. Doesn't hurt if really careful. But even with lifting things can feel pain in the neck. 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 Once a month headache. Prior Treatments and Tests X-rays: degenerative disc disease multiple levels Treatment Goals Patient/Caregiver Goals Reduce pain Personal Factors Other Personal Factors That May Effect hx tongue CA with radiation, Therapy/Recovery jaw/pec minor surgery, known disc degeneration with history of herniated disc with R sided sx PT-OP-C Subjective Start: 12/14/22 21:46 Freq: Status: Active Protocol: Document 02/23/23 10:46 AMB (Rec: 02/23/23 11:55 AMB [id number]) OP-PT Subjective Patient Comments Patient Comments Pt reports she was in the ER PT-OP-J Posture/Palpation/Skin Start: 12/14/22 21:46 Freq: Status: Active Protocol: Document 12/15/22 14:00 AMB (Rec: 12/15/22 15:37 AMB [id number]) Posture Evaluation Comments Posture Comments mild forward head/forward shoulder posture Palpation Assessment Location One Palpation Details pain and stiffness with R UPA at C3-5 Skin Assessment Other Assessments Skin Assessment Comments Pt with significant scar tissue from prior surgeries, especially on the left neck from the pec minor/jaw surgery . PT-OP-K Range of Motion Start: 12/14/22 21:46 Freq: Status: Active Protocol: Document 12/15/22 14:04 AMB (Rec: 12/15/22 14:26 AMB [id number]) Cervical Spine Range of Motion Cervical Spine Active Degrees Flexion 35 Extension 20 Rotation Left 60 Rotation Right 35 Comments pulls in front with extension in back with flexion PT-OP-M Strength Start: 12/14/22 21:46 Freq: Status: Active Protocol: Document 12/15/22 14:04 AMB (Rec: 12/15/22 14:26 AMB [id number]) Cervical Spine Strength Cervical Spine Manual Muscle Testing Comments can hold chin tuck in supine for 2 seconds Hand Software Program Manager/Pinch Strength Hand Dominance Hand Dominance Right Hand Strength Right Software Program Manager (lbs) 35 Comments 45 on L PT-OP-Q Treatments Start: 12/14/22 21:46 Freq: Status: Active Protocol: Document 02/23/23 15:45 AMB (Rec: 02/27/23 15:49 AMB [id number]) Manual Therapy Treatment Soft Tissue Mobilization neck Body Location L>R SCM, UT, LS, scalene Mobilization Type Instrument Assisted,Myofascial Release,Strumming,Sustained Pressure Intensity/Depth Superficial Body Position Hooklying Comments manual, ed self application use theracane. Joint Mobilizations contract relax Comments for cervical rotation PT-OP-T Assessment and Plan Start: 12/14/22 21:46 Freq: Status: Active Protocol: Document 02/23/23 15:45 AMB (Rec: 02/27/23 15:49 AMB [id number]) Physical Therapy Assessment Goals Two Impairment Pain Short Term Goal (STG) Naye will lift 10# from the floor to waist height without an increase in neck pain. STG Duration 4 weeks Trestle Mainternance Laborer Goal (LTG) Naye will drive for 30 minutes with 2/10 neck pain or less. LTG Duration MET One Impairment ROM Short Term Goal (STG) Naye will improve her cervical rotation ROM to at least 60 degrees bilaterally. STG Duration R 55, L 70, progress made Trestle Mainternance Laborer Goal (LTG) Naye will improve her cervical flexion to at least 50 degrees without an increase in neck pain. LTG Duration MET: 55 Assessment Summary Assessment Naye had a flare up of high blood pressure and headache that sent her to ED, but more BP related than neck pain related. Pt reports relief with manual, hoping to stretch a bit more to make sure that neck pain/headaches remain improved. Physical Therapy Plan Frequency and Duration Frequency of Treatment 2x/Week Duration of treatment (weeks) 12 Plan of Care Start Date 12/15/22 Plan of Care End Date 03/09/23 Therapeutic Interventions Therapeutic Interventions Home Exercise Program,Joint Mobilizations,Manual Therapy, Neuromuscular Re-education, Self-Care/Home Management,Soft Tissue Mobilization, Therapeutic Activities, Therapeutic Exercises Modalities Cold Pack/Ice Massage,Electric Stimulation,Hot Packs Next Visit Focus/Plan Next Note Type Treatment Note Next Visit Plan REcheck stretching, openbook, DNF holds and add lift if able . Challenged with TB due to hand pain, but handweights increased shoulder pain.
--- NOTE | 2023-05-16 14:49 | PT.OPDS ---
Current Diagnoses Cervicalgia (02/23/23) Visit Care Team Role Provider Type Sharath Escalona MD Attending Provider Physician Family Provider Primary Care Provider Referring Provider Specialty: Internal Medicine Address: [address] [place] [address], [address], [place], [address] Email: [email or web address] Visit Number Visit Number 8 Discharge Summary PT-OP-B Current Condition Start: 12/14/22 21:46 Freq: Status: Active Protocol: Document 12/15/22 14:04 AMB (Rec: 12/15/22 14:26 AMB [id number]) Current Condition History of Current Condition Onset Date 1 month Current Complaints neck pain History of Current Condition Tongue CA with radiation in 1996 and 2009. 2018 had a jaw infection and they removed L pec minor to help and ever since then has had some amount of neck pain. Had a TRAN a month ago and the next morning has been having with neck pain with movement. Doesn't hurt if really careful. But even with lifting things can feel pain in the neck. 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 Once a month headache. Prior Treatments and Tests X-rays: degenerative disc disease multiple levels Treatment Goals Patient/Caregiver Goals Reduce pain Personal Factors Other Personal Factors That May Effect hx tongue CA with radiation, Therapy/Recovery jaw/pec minor surgery, known disc degeneration with history of herniated disc with R sided sx PT-OP-C Subjective Start: 12/14/22 21:46 Freq: Status: Active Protocol: Document 02/23/23 10:46 AMB (Rec: 02/23/23 11:55 AMB [id number]) OP-PT Subjective Patient Comments Patient Comments Pt reports she was in the ER PT-OP-J Posture/Palpation/Skin Start: 12/14/22 21:46 Freq: Status: Active Protocol: Document 12/15/22 14:00 AMB (Rec: 12/15/22 15:37 AMB [id number]) Posture Evaluation Comments Posture Comments mild forward head/forward shoulder posture Palpation Assessment Location One Palpation Details pain and stiffness with R UPA at C3-5 Skin Assessment Other Assessments Skin Assessment Comments Pt with significant scar tissue from prior surgeries, especially on the left neck from the pec minor/jaw surgery . PT-OP-K Range of Motion Start: 12/14/22 21:46 Freq: Status: Active Protocol: Document 12/15/22 14:04 AMB (Rec: 12/15/22 14:26 AMB [id number]) Cervical Spine Range of Motion Cervical Spine Active Degrees Flexion 35 Extension 20 Rotation Left 60 Rotation Right 35 Comments pulls in front with extension in back with flexion PT-OP-M Strength Start: 12/14/22 21:46 Freq: Status: Active Protocol: Document 12/15/22 14:04 AMB (Rec: 12/15/22 14:26 AMB [id number]) Cervical Spine Strength Cervical Spine Manual Muscle Testing Comments can hold chin tuck in supine for 2 seconds Hand Content Development Manager/Pinch Strength Hand Dominance Hand Dominance Right Hand Strength Right Content Development Manager (lbs) 35 Comments 45 on L PT-OP-T Assessment and Plan Start: 12/14/22 21:46 Freq: Status: Active Protocol: Document 05/16/23 14:46 AMB (Rec: 05/16/23 14:49 AMB [id number]) Physical Therapy Assessment Goals Two Impairment Pain Short Term Goal (STG) Naye will lift 10# from the floor to waist height without an increase in neck pain. STG Duration 4 weeks Senior Living Goal (LTG) Naye will drive for 30 minutes with 2/10 neck pain or less. LTG Duration MET One Impairment ROM Short Term Goal (STG) Naye will improve her cervical rotation ROM to at least 60 degrees bilaterally. STG Duration R 55, L 70, progress made Fish Trapper Goal (LTG) Naye will improve her cervical flexion to at least 50 degrees without an increase in neck pain. LTG Duration MET: 55 Assessment Summary Assessment At her last visit, Naye was doing well, she needed to change her last visit and elected to cancel it. She should be able to maintain her improvement with ehr HEP at this time. She had met the majority of her goals. Physical Therapy Plan Discharge Physical Therapy Discharge Reasons Patient Request
== END 2023-05-17 14:13 | disposition home or self-care (01) ==
LOC: PHYS 10:45
PROVIDERS: Family Provider Internal Medicine; PCP Internal Medicine; Referring Provider Internal Medicine; Visit Provider Internal Medicine
DX: M54.2 Cervicalgia (principal)
CPT/HCPCS: 97110; 97140; 97162; 97535

== ENCOUNTER → 2023-06-12 12:15 | Outpatient (CLI) | payer OTHER, SELFPAY ==
[2023-06-12 14:10] LABS: Add Manual Diff / Slide Review NO; Basophils Absolute Auto 100 /uL (0-100); Basophils Percent Auto 2.2 % (0-2); Eosinophils Absolute Auto 300 /uL (0-450); Eosinophils Percent Auto 8.1 % (2-4); Hematocrit 36.5 % (36-46); Hemoglobin 11.8 g/dL (12.0-16.0); Lymphocytes Absolute Auto 1600 /uL (1100-4500); Lymphocytes Percent Auto 37.7 % (25-40); Mean Corpuscular HGB Conc 32.4 % (30-36); Mean Corpuscular Hemoglobin 23.1 PG (26-34); Mean Corpuscular Volume 71.3 fL (80-100); Monocytes Absolute Auto 400 /uL (0-900); Monocytes Percent Auto 10.6 % (3-14); Neutrophils Absolute Auto 1700 /uL (1500-7000); Neutrophils Percent Auto 41.4 % (50-75); Platelet Count 240 X10^3/uL (150-400); Red Blood Cell Count 5.12 X10^6/uL (4.0-5.2); Red Cell Distribution Width 18.3 % (11.6-14.8); White Blood Cell Count 4.2 X10^3/uL (4.5-11.0)
[2023-06-12 14:30] LABS: Erythrocyte Sedimentation Rate 1 MM/HR (0-20)
[2023-06-12 14:43] LABS: Alanine Aminotransferase 22 IU/L (<35); Albumin 4.2 g/dL (3.5-5.0); Albumin Globulin Ratio 1.8 (1.0-2.8); Alkaline Phosphatase 78 U/L (38-126); Aspartate Aminotransferase 28 IU/L (14-36); BUN Creatinine Ratio 16.7 (6-22); Bilirubin Total 0.4 mg/dL (0.2-1.3); Blood Urea Nitrogen 14 mg/dL (7-17); C-Reactive Protein Quant < 0.5 mg/dL (<1.0); Calcium 9.5 mg/dL (8.4-10.2); Carbon Dioxide 30 mmol/L (22-32); Chloride 103 mmol/L (98-107); Creatine Kinase 107 U/L (30-135); Estimated Glomerular Filt Rate > 60 mL/min (>60); Globulin 2.4 g/dL (1.7-4.1); Glucose 127 mg/dL (70-100); HEMOLYSIS < 15 (0-50); Potassium 4.6 mmol/L (3.4-5.1); Sodium 138 mmol/L (137-145); Total Protein 6.6 g/dL (6.3-8.2)
[2023-06-12 14:54] LABS: Free T4, Direct Thyroxine 1.61 ng/dL (0.78-2.19)
[2023-06-12 15:08] LABS: Thyroid Stimulating Hormone 0.179 uIU/mL (0.47-4.68)
== END ==
PROVIDERS: Family Provider Internal Medicine; PCP Internal Medicine; Referring Provider Internal Medicine; Visit Provider Internal Medicine
DX: E03.9 Hypothyroidism, unspecified (principal); I10 Essential (primary) hypertension; K21.9 Gastro-esophageal reflux disease without esophagitis; M79.10 Myalgia, unspecified site
CPT/HCPCS: 36415; 80053; 82550; 84439; 84443; 85025; 85651; 86140

== ENCOUNTER → 2023-07-25 14:53 | Outpatient (CLI) | payer OTHER, SELFPAY | PROVIDERS: Family Provider Internal Medicine; PCP Internal Medicine; Referring Provider Family Medicine; Visit Provider Family Medicine | DX: Z23 Encounter for immunization (principal) | CPT/HCPCS: 90471; 90662 ==

== ENCOUNTER → 2023-08-27 14:10 | Outpatient (CLI) | payer OTHER, SELFPAY ==
--- NOTE | 2023-08-27 14:11 | DI.RAD.S_ITS ---
PROCEDURE: XR LUMBAR SPINE MIN 4V INDICATIONS: BACK PAIN TECHNIQUE: 5 views of the lumbar spine were acquired, including bilateral oblique views. COMPARISON: [facility], , L-SPINE 2-3 VIEWS, 06/08/2014, 12:14. FINDINGS: Bones: 5 nonrib-bearing vertebrae are present. Slight increase in rotatory dextro curvature of the lumbar spine, centered at L3, kifk-ks-gdnvinus. Increased disc space loss at L3-L4, severe. Lower lumbar facet arthropathy. No vertebral body compression fractures. No suspicious bony lesions. Soft tissues: Overlying bowel gas pattern is normal. No suspicious soft tissue calcifications. Oblique images: No pars defects. IMPRESSION: Degenerative change, increasing rotatory dextrocurvature. No acute bony abnormality. Dictated by: Shay Guerra M.D. on 08/27/2023 at 14:57 Approved by: Shay Guerra M.D. on 08/27/2023 at 14:59
== END ==
PROVIDERS: Family Provider Internal Medicine; PCP Internal Medicine; Referring Provider Anesthesiology; Visit Provider Anesthesiology
DX: M51.37 Other intervertebral disc degeneration, lumbosacral region (principal); M47.816 Spondylosis without myelopathy or radiculopathy, lumbar region
CPT/HCPCS: 72110

== ENCOUNTER → 2023-09-20 07:50 | Outpatient (CLI) | payer OTHER, SELFPAY ==
--- NOTE | 2023-09-20 07:51 | DI.CT.S_ITS ---
PROCEDURE: CT ABDOMEN W CON INDICATIONS: LLQ abdominal pain, abdominal wall pain TECHNIQUE: After the administration of oral and intravenous contrast, 5 mm thick sections acquired from the diaphragms to the iliac crests. 5 mm thick coronal and sagittal reformats were acquired. For radiation dose reduction, the following was used: automated exposure control, adjustment of mA and/or kV according to patient size. COMPARISON: [facility], CT, ABDOMEN WITH CONTRAST, 08/24/2017, 16:51. FINDINGS: Image quality: Diagnostic Lung bases: Lung bases are clear. Heart: Heart size is normal. Coronary atherosclerotic vascular calcifications are noted. ABDOMEN: Liver: There is diffuse hypoattenuation of the liver parenchyma relative to the spleen compatible with hepatic steatosis. Gallbladder: Unremarkable Biliary ducts: Unremarkable. Pancreas: Homogeneous enhancement without focal lesions or pancreatic ductal dilatation. No peripancreatic inflammation or organized fluid collections. Spleen: No splenomegaly. Adrenal Glands: Unremarkable. Kidneys and Ureters: Kidneys are symmetric in size and enhancement, and there is no obstructive uropathy. No perinephric inflammatory changes. Ureters are normal in course and caliber. Stomach and Bowel: Visualized stomach, segments of small bowel and segments of colon are unremarkable. Visualized portions of the appendix are also unremarkable. No acute inflammatory changes. No findings for obstruction. Peritoneum: No abnormal intraperitoneal fluid. No free air. Ventral Wall: No hernia. Abdominal Nodes: No retroperitoneal or mesenteric adenopathy by size criteria. Vessels: Aorta and inferior vena cava are normal in size. Bones: Visualized osseous structures appear intact without acute fracture or focal destructive lesion. No acute compression fractures of the imaged spine. IMPRESSION: 1. CT abdomen without acute abnormalities. 2. Hepatic steatosis. 3. Mild atherosclerotic vascular calcifications. 4. Normal appearance of the appendix. Dictated by: Gerald Ko M.D. on 09/20/2023 at 10:46 Approved by: Gerald Ko M.D. on 09/20/2023 at 10:51
== END ==
PROVIDERS: Family Provider Internal Medicine; PCP Internal Medicine; Referring Provider Anesthesiology; Visit Provider Anesthesiology
DX: K76.0 Fatty (change of) liver, not elsewhere classified (principal); I25.10 Atherosclerotic heart disease of native coronary artery without angina pectoris; R10.9 Unspecified abdominal pain
CPT/HCPCS: 74160; Q9967

== ENCOUNTER → 2023-11-10 10:56 | Outpatient (CLI) | payer OTHER, SELFPAY ==
--- NOTE | 2023-11-10 10:58 | DI.MRI.S_ITS ---
PROCEDURE: MR LUMBAR SPINE WO CON INDICATIONS: Lumbar radiculopathy TECHNIQUE: Noncontrast sagittal T1 spin echo and T2 fast echo, sagittal STIR, and T2 fast spin echo through the lumbar spine. In cases with scoliosis, additional coronal T2 fast spin echo may be performed. COMPARISON: [facility], CR, XR LUMBAR SPINE MIN 4V, 08/27/2023, 14:13. [facility], MR, L-SPINE WITHOUT CONTRAST, 09/16/2013, 7:44. FINDINGS: Image quality: Excellent. Alignment and Curvature: Wusw-gd-fcxjujaw rotatory dextro curvature centered at L3. Bone Marrow: Marrow is of normal overall signal. No acute vertebral body compression fractures. Spinal Cord: Conus medullaris terminates at the T12-L1 level. Visualized cord demonstrates normal signal and size. Paraspinous Soft Tissues: No paravertebral masses. T12-L1: No canal stenosis or foraminal stenosis. L1-L2: No significant change. Central posterior mild disc protrusion with associated shallow superior right paracentral disc extrusion. Mild canal stenosis. No significant foraminal stenosis. Mild facet hypertrophy. L2-L3: Development of mild disc height loss. Minimal disc bulge. Facet hypertrophy. No canal stenosis or significant foraminal stenosis. L3-L4: Progressive findings. Interval increased disc height loss, severe. Posterior disc osteophyte complex. Facet and ligament hypertrophy. Wnru-rg-ckgmpcql canal stenosis. No significant right foraminal narrowing. Development of moderate left foraminal stenosis with mild flattening deformity on the exiting left L3 nerve root. L4-L5: Interval progression. Disc bulge. Facet and ligament hypertrophy. Kzlr-xr-gyaceokk central canal stenosis. Jihk-pj-skijkndm bilateral foraminal stenosis.. L5-S1: Disc bulge. Facet hypertrophy. No significant canal stenosis or foraminal stenosis. IMPRESSION: 1. Progressive findings L3-L4 and L4-L5. 2. Multilevel underlying facet arthropathy. 3. Canal stenosis is mild at L1-L2, eypp-ic-dziaeeod at L3-L4, and bioy-jo-zosawbhc at L4-L5. 4. Multilevel foraminal narrowing as described above. Findings include moderate left foraminal stenosis at L3-L4. Dictated by: Shay Guerra M.D. on 11/12/2023 at 11:55 Approved by: Shay Guerra M.D. on 11/12/2023 at 12:58
== END ==
LOC: MRI 10:57
PROVIDERS: Family Provider Internal Medicine; PCP Internal Medicine; Referring Provider Anesthesiology; Visit Provider Anesthesiology
DX: M47.26 Other spondylosis with radiculopathy, lumbar region (principal); M47.27 Other spondylosis with radiculopathy, lumbosacral region; M48.061 Spinal stenosis, lumbar region without neurogenic claudication; M54.9 Dorsalgia, unspecified; G89.4 Chronic pain syndrome
CPT/HCPCS: 72148

== ENCOUNTER 2023-12-26 07:02 | Outpatient (CLI) | payer OTHER, SELFPAY ==
[2023-12-26] VITALS (9 sets, daily range): BP systolic 109–221; BP diastolic 73–132; PULSE 56–68; RESP 12–19; TEMP 36.5; O2SAT 97–100
--- NOTE | 2023-12-26 08:00 | DI.RAD.S_ITS ---
PROCEDURE: PAIN L INTERLAMINAR/CAUDAL INJ INDICATIONS: lumbar radiculopathy COMPARISON: None. FINDINGS: Fluoroscopic spot filming was performed to verify placement of spinal needles at the L3-4 level(s), as labeled on the films. Appropriate location(s) of the needle tip(s) was confirmed by injection of iodinated contrast. IMPRESSION: Fluoroscopic guidance utilized for an interlaminar epidural steroid injection at L3-4. Dictated by: Tejinder Porter M.D. on 12/26/2023 at 10:13 Approved by: Tejinder Porter M.D. on 12/26/2023 at 10:14
[2023-12-26] MEDS: MIDAZOLAM 2 MG/2 ML VIAL 1 MG IV ×2 (08:11→08:15)
[2023-12-26] MEDS: iopamidoL 15 ML VIAL 3 ML INJ (08:22)
[2023-12-26] MEDS: DEXAMETHASONE 10 MG/ML VIAL INJ (08:22)
--- NOTE | 2023-12-26 12:01 | P.PCN_ITS ---
Date/Time/Diagnoses Date of procedure: 12/26/23 Time of procedure: 08:00 Procedure Notes Physician: Wellington Harper Total Fluoroscopy time (seconds): 12 Total sedation minutes: 10 Procedure in detail & Post-procedure care: L3-4 Interlaminar Epidural Steroid Injection Indications: Naye is presenting for treatment of lumbar radiculopathy with low back and leg pain. Preoperative diagnosis: Lumbar radiculopathy Postoperative diagnosis: Same Focused Examination: Ax3 Mood and affect are normal Vital Signs: VSS ASA: 2 Consent: Following review of allergies and potential side effects/complications, including, but not necessarily limited to, infection, allergic reaction, local tissue breakdown, stroke, temporary or permanent nerve injury, paralysis, and possible , the patient indicated that they understood and agreed to pr oceed.? An informed consent document was signed by the patient, witnessed by a nurse and placed in the patient's chart.? Additionally, other treatment options including medications and physical therapy were reviewed with the patient. All questions were answered. Site was then marked. Anesthesia: After review of previous anesthetic history and IV conscious sedation, the patient was deemed safe to proceed with today's procedure with IV conscious sedation. IV sedation was accomplished with midazolam 2 mg administered by the RN after order by Dr. Harper. Sedation was titrated to patient comfort during the course of the procedure. Patient remained responsive to all verbal commands. Position: Prone Monitoring: NIBP, Pulse oximetry, 3 lead EKG Needle used: 18 G 3.5? Tuohy Contrast: Isovue 300M Injectate: Dexamethasone 10 mg with 1% lidocaine 2 mL Technique: The skin was prepped with chloraprep and then draped in a sterile fashion. Time out was performed as per protocol. Oxygen applied via NC. Skin and subcutaneous structures of the needle entry site was then infiltrated with 3 mL of lidocaine 1%. Under AP, lateral and contralateral oblique fluoroscopic control, the Tuohy needle was guided into the L3-4 epidural space. The space was accessed with loss of resistance technique. Isovue 300M was then injected and the spread was consistent with the epidural space. There was no evidence for intravascular or intrathecal uptake. After negative aspiration, the above- mentioned injectate was then slowly administered and the needle withdrawn. The patient expressed no unusual discomfort or paresthesias during the injection. Band-Aids applied to injection sites. EBL: less than 1 ml Complications: None Post Procedure: Patient was taken to the recovery and monitored. The patient was provided a Pain Log to continue to record the patient's response to the target- specific procedure prior to the patient's follow-up visit with the referring physician. Patient was stable upon discharge. Detailed post procedure instructions were provided. Patient was asked to call in the event of worsening pain, fever, weakness, numbness or bladder or bowel incontinence.
== END 2023-12-26 08:47 | disposition home or self-care (01) ==
LOC: RAD 07:02
PROVIDERS: Family Provider Internal Medicine; PCP Internal Medicine; Referring Provider Anesthesiology; Visit Provider Anesthesiology
DX: M54.16 Radiculopathy, lumbar region (principal)
CPT/HCPCS: 62323; 99152; J1100; J2250

== ENCOUNTER → 2024-01-29 11:39 | Outpatient (CLI) | payer OTHER, SELFPAY ==
[2024-01-29 12:31] LABS: Influenza A - CEPHEID Flu A NEGATIVE (NEGATIVE); Influenza B - CEPHEID Flu B NEGATIVE (NEGATIVE); Respiratory Syncytial Virus Negative (Negative)
[2024-01-29 12:36] LABS: COVID-19 CEPHEID 4-PLEX PCR Negative (Negative)
== END ==
PROVIDERS: Family Provider Internal Medicine; PCP Internal Medicine; Visit Provider Physician Assistant Surgical
DX: R05.9 Cough, unspecified (principal)
CPT/HCPCS: 0241U

== ENCOUNTER → 2024-02-19 16:52 | Outpatient (CLI) | payer OTHER, SELFPAY ==
[2024-02-19 19:58] LABS: Influenza A - CEPHEID Flu A NEGATIVE (NEGATIVE); Influenza B - CEPHEID Flu B NEGATIVE (NEGATIVE); Respiratory Syncytial Virus Negative (Negative)
[2024-02-19 20:21] LABS: COVID-19 CEPHEID 4-PLEX PCR Negative (Negative)
== END ==
PROVIDERS: Family Provider Internal Medicine; PCP Internal Medicine; Visit Provider Physician Assistant
DX: R05.1 Acute cough (principal)
CPT/HCPCS: 0241U

== ENCOUNTER → 2024-02-19 17:07 | Outpatient (CLI) | payer OTHER, SELFPAY ==
--- NOTE | 2024-02-19 17:09 | DI.RAD.S_ITS ---
PROCEDURE: XR CHEST 2V INDICATIONS: cough x 1 mo, nonsmoker TECHNIQUE: 2 views of the chest were acquired. COMPARISON: [facility], CR, XR CHEST 1V, 02/18/2023, 9:42. [facility], CR, XR CHEST 1V, 06/24/2019, 9:09. FINDINGS: Surgical changes and devices: None. Lungs and pleura: Right upper lobe nodularity. Peribronchial cuffing. Mediastinum: Mediastinal contours are normal. Heart size is normal. Bones and chest wall: No suspicious bony abnormalities. Soft tissues appear unremarkable. IMPRESSION: Right upper lobe nodularity, could represent scar, but nodule not excluded. Consider low-dose chest CT. Peribronchial cuffing, typically indicating infectious or inflammatory bronchitis. Dictated by: Tejinder Porter M.D. on 02/20/2024 at 8:09 Approved by: Tejinder Porter M.D. on 02/20/2024 at 8:10
== END ==
PROVIDERS: Family Provider Internal Medicine; PCP Internal Medicine; Referring Provider Physician Assistant; Visit Provider Physician Assistant
DX: R05.9 Cough, unspecified (principal); R05.1 Acute cough
CPT/HCPCS: 0241U; 71046

== ENCOUNTER 2024-03-17 11:48 | Emergency (ER) | payer OTHER, SELFPAY ==
[2024-03-17 12:02] VITALS: BP 201/95; PULSE 58; RESP 17; TEMP 36.6; O2SAT 98; BMI 31.4
--- NOTE | 2024-03-17 12:11 | DI.RAD.S_ITS ---
PROCEDURE: XR CHEST 1V INDICATIONS: chest pain TECHNIQUE: One view of the chest was acquired. COMPARISON: [facility], CR, XR CHEST 1V, 06/24/2019, 9:09. [facility], CR, XR CHEST 2V, 02/19/2024, 16:19. FINDINGS: Surgical changes and devices: None. Lungs and pleura: Lungs are clear. No pleural effusions or pneumothorax. Mediastinum: Mediastinal contours appear normal. Heart size is mildly prominent. Bones and chest wall: No suspicious bony lesions. Overlying soft tissues appear unremarkable. Previous focus of increased density is present overlying the right 3rd rib unchanged. This is stable since 2019 and likely osseous overlap. IMPRESSION: No acute pulmonary process. Dictated by: Kaite Leigh M.D. on 03/17/2024 at 13:56 Approved by: Katie Leigh M.D. on 03/17/2024 at 13:58
[2024-03-17] MEDS: ASPIRIN 81 MG CHEW TAB 324 MG PO (12:40)
[2024-03-17 12:51] LABS: INR 0.9 (0.9-1.3); Prothrombin Time 10.5 SECONDS (9.4-12.5)
[2024-03-17 12:52] LABS: Add Manual Diff / Slide Review NO; Basophils Absolute Auto 100 /uL (0-100); Basophils Percent Auto 1.6 % (0-2); Eosinophils Absolute Auto 400 /uL (0-450); Eosinophils Percent Auto 8.7 % (2-4); Hematocrit 37.5 % (36-46); Hemoglobin 11.7 g/dL (12.0-16.0); Lymphocytes Absolute Auto 1800 /uL (1100-4500); Lymphocytes Percent Auto 37.6 % (25-40); Mean Corpuscular HGB Conc 31.1 % (30-36); Mean Corpuscular Hemoglobin 20.6 PG (26-34); Mean Corpuscular Volume 66.3 fL (80-100); Monocytes Absolute Auto 500 /uL (0-900); Monocytes Percent Auto 10.7 % (3-14); Neutrophils Absolute Auto 1900 /uL (1500-7000); Neutrophils Percent Auto 41.4 % (50-75); Platelet Count 235 X10^3/uL (150-400); Red Blood Cell Count 5.66 X10^6/uL (4.0-5.2); Red Cell Distribution Width 19.6 % (11.6-14.8); White Blood Cell Count 4.7 X10^3/uL (4.5-11.0)
[2024-03-17 12:54] LABS: PTT Partial Thromboplastin Tim 21 SECONDS (25.1-36.5)
[2024-03-17 12:56] LABS: Alanine Aminotransferase 21 IU/L (<35); Albumin 4.7 g/dL (3.5-5.0); Albumin Globulin Ratio 1.6 (1.0-2.8); Alkaline Phosphatase 107 U/L (38-126); Aspartate Aminotransferase 32 IU/L (14-36); BUN Creatinine Ratio 13.8 (6-22); Bilirubin Total 0.6 mg/dL (0.2-1.3); Blood Urea Nitrogen 12 mg/dL (7-17); Carbon Dioxide 28 mmol/L (22-32); Chloride 104 mmol/L (98-107); Creatine Kinase 123 U/L (30-135); Estimated Glomerular Filt Rate > 60 mL/min (>60); Glucose 108 mg/dL (80-110); HEMOLYSIS 18 (0-50); Lipase 198 U/L (23-300); Magnesium 2.1 mg/dL (1.6-2.3); Sodium 139 mmol/L (137-145); Total Protein 7.7 g/dL (6.3-8.2)
[2024-03-17 13:07] LABS: Troponin I < 0.012 ng/mL (0.01-0.034)
--- NOTE | 2024-03-17 13:08 | ED_ITS ---
HPI - Extremity Problem General Chief complaint: Extremity Problem,Nontraumatic Stated complaint: left side neck and arm pain with numbness Time Seen by Provider: 03/17/24 13:08 Source: patient Mode of arrival: Ambulatory History of Present Illness HPI Narrative: 59-year-old female complains of left-sided neck pain and arm pain with numbness. History of prior tongue cancer treated initially in [facility], then more recently [address] [facility], prior tracheostomy revised, complains of numbness and pain to left upper arm Related Data Previous Rx's Medication Instructions Recorded furosemide 20 mg tablet (Lasix) 20 mg PO QDAY PRN edema #90 tabs 08/31/22 dexamethasone 2 mg tablet 2 - 4 mg (1 - 2 x 2 mg) PO Q6H PRN 02/22/23 pain #7 tabs Synthroid 88 mcg tablet 88 mcg PO DAILY #90 tabs 04/20/23 (levothyroxine) ibuprofen 600 mg tablet See Rx Instructions .Route 07/30/23 .COMPLEX #180 tabs metoprolol succinate 50 mg 50 mg PO DAILY #90 tabs 07/30/23 tablet,extended release 24 hr mirtazapine 7.5 mg tablet 7.5 mg PO BEDTIME #90 tabs 08/07/23 methocarbamol 500 mg tablet 500 mg PO TID #90 tabs 08/28/23 tolterodine 2 mg capsule,extended 2 mg PO DAILY #30 caps 08/28/23 release 24 hr pantoprazole 40 mg tablet,delayed 40 mg PO DAILY #90 tabs 01/14/24 release (Protonix) betamethasone dipropionate 0.05 % See Rx Instructions .Route 01/17/24 topical ointment .COMPLEX #15 grams buspirone 15 mg tablet 15 mg PO BID #1 tab 01/17/24 valsartan 40 mg tablet 40 mg PO DAILY #90 tabs 02/04/24 albuterol sulfate 90 mcg/actuation 2 puff inhalation Q4-6H PRN 02/19/24 aerosol inhaler shortness of breath or wheezing #6.7 grams benzonatate 200 mg capsule 200 mg PO TID #30 caps 02/19/24 guaifenesin 1,200 mg tablet, 1,200 mg PO BID #30 tabs 02/19/24 extended release 12 hr methylprednisolone 4 mg tablets in See Rx Instructions PO PER PKG DIR 02/19/24 a dose pack (Medrol (Daniel)) #21 ea azithromycin 250 mg tablet See Rx Instructions PO .COMPLEX #6 02/20/24 tabs hydrocodone 7.5 mg-acetaminophen 15 ml PO Q4HP PRN pain #300 mL 02/25/24 325 mg/15 mL oral solution celecoxib 100 mg capsule (Celebrex) 100 mg PO BID #20 caps 03/17/24 Allergies Allergy/AdvReac Type Severity Reaction Status Date / Time citalopram [CITALOPRAM] Allergy Severe CHEST PAIN Verified 03/17/24 12:02 propranolol [PROPRANOLOL] Allergy Severe CHEST PAIN Verified 03/17/24 12:02 AND HEADACHE succinylcholine Allergy Severe rhabdomyolo Verified 03/17/24 12:02 [SUCCINYLCHOLINE] sis DEBORA Inhibitors Allergy Mild COUGHING Verified 03/17/24 12:02 [DEBORA INHIBITORS] amoxicillin [AMOXICILLIN] Allergy Mild RASH Verified 03/17/24 12:02 lisinopril [LISINOPRIL] Allergy Mild COUGHING Verified 03/17/24 12:02 oxycodone [OXYCODONE] Allergy Mild headache Verified 03/17/24 12:02 oxymetazoline Allergy Mild headache Verified 03/17/24 12:02 [From Afrin (oxymetazoline)] paroxetine [PAROXETINE] Allergy Mild SEVERE Verified 03/17/24 12:02 HEADACHE Penicillins [PENICILLINS] Allergy Mild RASH Verified 03/17/24 12:02 pravastatin [PRAVASTATIN] Allergy Mild MUSCLE Verified 03/17/24 12:02 WEAKNESS prednisone [PREDNISONE] Allergy Mild PROJECTILE Verified 03/17/24 12:02 VOMITING sertraline [SERTRALINE] Allergy Mild WT GAIN Verified 03/17/24 12:02 simvastatin [SIMVASTATIN] Allergy Mild LEG PAIN Verified 03/17/24 12:02 Sulfa (Sulfonamide Allergy Mild JOINT PAIN Verified 03/17/24 12:02 Antibiotics) UPPER EXT. [SULFA (SULFONAMIDE ANTIBIOTICS)] amlodipine AdvReac Intermediate faitgue Verified 03/17/24 12:02 losartan AdvReac Intermediate leg Verified 03/17/24 12:02 weakness quinapril AdvReac Intermediate abdominal Verified 03/17/24 12:02 pain, nausea, bloating duloxetine AdvReac Mild weight gain Verified 03/17/24 12:02 Patient History Medical History Lumbar degenerative disc disease Lumbar facet arthropathy Lumbar spondylosis Scoliosis Lumbar radiculopathy Myofascial pain Dorsalgia Foot pain (~2012) Chickenpox Anemia Fibroids (~2002) Hemorrhoids Atrial fibrillation (~2009) Chronic pain syndrome (~2012) Hx of tongue cancer Hypothyroidism (~1994) Essential hypertension (10/19/15) Depression (09/15/14) Anxiety (05/12/14) GERD (gastroesophageal reflux disease) Surgical History Anesthesia S/P partial glossectomy 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 Social History Smoking Status: Never smoker Smoking Status: Never smoker alcohol intake frequency: 0-2 drinks per day Substance Use Type: does not use Exam Narrative Exam Narrative: GENERAL: Well-developed patient, in mild distress. HEAD: Atraumatic. Normocephalic. EYES: Pupils equal round and reactive. Extraocular motions intact. No scleral icterus. No injection or drainage. ENT: Nose without bleeding, purulent drainage. Throat without erythema, tonsillar hypertrophy or exudate. Airway patent. NECK: Right side of tongue excised, old well healed scars. Trachea midline. Non tender, well-healed tracheostomy scar, well-healed transverse mid anterior neck scar from previous tongue cancer related surgeries. CARDIOVASCULAR: Regular rate and rhythm without murmurs, gallops, or rubs. RESPIRATORY: Clear to auscultation. Breath sounds equal bilaterally. No wheezes, rales, or rhonchi. GASTROINTESTINAL: Abdomen soft, non-tender, nondistended. EXTREMITIES: No edema or joint tenderness. No tenderness to left superior trapezius, lateral left neck musculature, shoulder upper arm elbow forearm wrist. No gross extremity edema,no redness or skin changes, no warmth. Well- healed old skin grafts bilateral forearms, no redness or swelling, good peripheral pulses, good cap refill both hands fingers. BACK: Nontender without deformity or crepitance. No flank tenderness. NEURO: AOx3. SKIN: No rash or erythema of visible areas Initial Vital Signs Initial Vital Signs: Vital Signs Temperature 97.8 F 03/17/24 12:02 Pulse Rate 58 L 03/17/24 12:02 Respiratory Rate 17 03/17/24 12:02 Blood Pressure 201/95 H 03/17/24 12:02 Pulse Oximetry 98 03/17/24 12:02 Oxygen Delivery Method Room Air 03/17/24 12:02 Course Orders Ordered: Discontinued Medications Aspirin (Aspirin 81 Mg Chew Tab) 324 mg PO NOW ONE Stop: 03/17/24 12:12 Last Admin: 03/17/24 12:40 Dose: 324 mg Documented By: TOSHIA Diazepam (Diazepam 10 Mg/2 Ml Syringe) 5 mg IV NOW ONE Stop: 03/17/24 13:55 Last Admin: 03/17/24 14:14 Dose: Not Given Documented By: ES Ketorolac Tromethamine (Ketorolac 30 Mg/Ml Vial) 15 mg IV NOW ONE Stop: 03/17/24 13:55 Last Admin: 03/17/24 14:14 Dose: Not Given Documented By: ES Vital Signs Vital signs: Vital Signs - 8 hr 03/17/24 17:14 Pulse Rate 56 L Respiratory Rate 18 Blood Pressure 190/95 H Pulse Oximetry 100 Oxygen Delivery Method Room Air MDM - Extremity (Nontraumatic) Differential Diagnosis Differential diagnosis: Likely herpes zoster, cellulitis, deep venous thrombosis of upper extremity and other Lab Data 03/17/24 12:32 03/17/24 12:32 Labs: Lab Results 03/17/24 Range/Units 12:32 WBC 4.7 (4.5-11.0) X10^3/uL RBC 5.66 H (4.0-5.2) X10^6/uL Hgb 11.7 L (12.0-16.0) g/dL Hct 37.5 (36-46) % MCV 66.3 L (80-100) fL MCH 20.6 L (26-34) PG MCHC 31.1 (30-36) % RDW 19.6 H (11.6-14.8) % Plt Count 235 (150-400) X10^3/uL Neut % (Auto) 41.4 L (50-75) % Lymph % (Auto) 37.6 (25-40) % Dickinson % (Auto) 10.7 (3-14) % Eos % (Auto) 8.7 H (2-4) % Baso % (Auto) 1.6 (0-2) % Neut # (Auto) 1900 (0439-5182) /uL Lymph # (Auto) 1800 (4622-9574) /uL Dickinson # (Auto) 500 (0-900) /uL Eos # (Auto) 400 (0-450) /uL Baso # (Auto) 100 (0-100) /uL RBC Morphology See below Hypochromasia 2+ H Poikilocytosis 2+ H Anisocytosis 2+ H PT 10.5 (9.4-12.5) SECONDS INR 0.9 (0.9-1.3) APTT 21 L (25.1-36.5) SECONDS Sodium 139 (137-145) mmol/L Potassium 4.0 (3.4-5.1) mmol/L Chloride 104 (98-107) mmol/L Carbon Dioxide 28 (22-32) mmol/L BUN 12 (7-17) mg/dL Creatinine 0.87 (0.52-1.04) mg/dL Estimated GFR > 60 (>60) mL/min BUN/Creatinine Ratio 13.8 (6-22) Glucose 108 (80-110) mg/dL Calcium 9.0 (8.4-10.2) mg/dL Magnesium 2.1 (1.6-2.3) mg/dL Total Bilirubin 0.6 (0.2-1.3) mg/dL AST 32 (14-36) IU/L ALT 21 (<35) IU/L Alkaline Phosphatase 107 (38-126) U/L Total Creatine Kinase 123 (30-135) U/L Troponin I < 0.012 (0.01-0.034) ng/mL Total Protein 7.7 (6.3-8.2) g/dL Albumin 4.7 (3.5-5.0) g/dL Globulin 3.0 (1.7-4.1) g/dL Albumin/Globulin Ratio 1.6 (1.0-2.8) Lipase 198 (23-300) U/L Imaging Data Chest x-ray: Radiologist's Impression: [address] [address] XRay Report Signed Patient: Naye Muñoz MR#: [id number] : 1965 Acct:[id number] Age/Sex: 59 / F Date of Service: 03/17/24 Loc: ED Accession Number: [id number] Procedure: XR chest 1V Ordering Provider: Joby Lange MD PROCEDURE: XR CHEST 1V INDICATIONS: chest pain TECHNIQUE: One view of the chest was acquired. COMPARISON: [facility], CR, XR CHEST 1V, 06/24/2019, 9:09. [facility], CR, XR CHEST 2V, 02/19/2024, 16:19. FINDINGS: Surgical changes and devices: None. Lungs and pleura: Lungs are clear. No pleural effusions or pneumothorax. Mediastinum: Mediastinal contours appear normal. Heart size is mildly prominent. Bones and chest wall: No suspicious bony lesions. Overlying soft tissues appear unremarkable. Previous focus of increased density is present overlying the right 3rd rib unchanged. This is stable since 2019 and likely osseous overlap. IMPRESSION: No acute pulmonary process. Dictated by: Katie Leigh M.D. on 03/17/2024 at 13:56 Approved by: Katie Leigh M.D. on 03/17/2024 at 13:58 CT - cervical spine: Radiologist's Impression: [address] [address] [address] Scan Report Signed Patient: Naye Muñoz MR#: [id number] : 1965 Acct:[id number] Age/Sex: 59 / F Date of Service: 03/17/24 Loc: ED Accession Number: [id number] Procedure: CT cervical spine wo con Ordering Provider: Joby Lange MD PROCEDURE: CT CERVICAL SPINE WO CON INDICATIONS: neck pain, left arm pain/numbness TECHNIQUE: Noncontrast 3 mm thick sections acquired from the skull base to the T4 level. Sagittal and coronal reformats were then constructed. For radiation dose reduction, the following was used: automated exposure control, adjustment of mA and/or kV according to patient size. COMPARISON: None. FINDINGS: Image quality: Excellent. Bones: No fractures or dislocations. Visualized superior ribs are intact. Straightening is present. Scattered multilevel disc bulges. No gross spinal stenosis. Soft tissues: Prevertebral soft tissues are normal in thickness. No paravertebral hematomas. No apical pneumothoraces. IMPRESSION: No visualized fracture or dislocation. Multilevel scattered disc bulges without significant foraminal narrowing Dictated by: Katie Leigh M.D. on 03/17/2024 at 14:29 Approved by: Katie Leigh M.D. on 03/17/2024 at 14:30 US venous doppler LUE: Radiologist's Impression: [address] [address] Ultrasound Report Signed Patient: Naye Muñoz MR#: [id number] : 1965 Acct:[id number] Age/Sex: 59 / F Date of Service: 03/17/24 Loc: ED Accession Number: [id number] Procedure: perip venous up extrem lt Ordering Provider: Joby Lange MD PROCEDURE: US PERIP VENOUS UP EXTREM LT INDICATIONS: Left arm pain, history of grafting BUE, LUE pain TECHNIQUE: Real-time imaging, as well as color and pulse Doppler interrogation, was performed of the upper extremity deep veins from the inferior neck to the antecubital fossa. COMPARISON: None. FINDINGS: The internal jugular vein, visualized portions of the subclavian vein, axillary, and brachial veins are free of intraluminal thrombus. Where physically possible, the veins are normally compressible. Color and pulse Doppler demonstrate normal intraluminal flow, with expected phasicity and pulsatility. Additional scanning of the cephalic and basilic veins of the superficial system demonstrates normal compressibility, without thrombus. IMPRESSION: No findings of upper extremity deep venous thrombosis can be seen. Dictated by: Katie Leigh M.D. on 03/17/2024 at 15:31 Approved by: Katie Leigh M.D. on 03/17/2024 at 15:31 ECG Data Attestation EKG: I personally reviewed and interpreted this ECG as follows: Interpretation: Sinus bradycardia with rate of 53, no obvious ST segment elevation or depression changes. T-wave inversion lead 3 noted, upright in other contiguous leads 2 and F. ND interval, QRS, QTC intervals normal. MDM Narrative Medical decision making narrative: Left-sided neck and left upper extremity pain, with left upper extremity numbness. Complex history of oral cancer, with previous right tongue and radical neck resection surgeries 1997 in [facility], and 2013 at [facility], skin grafting and muscular flap procedures done in the neck area, donor site BUE, however patient without obvious redness or swelling or tenderness to neck musculature, nor to left superior trapezius. DDx favor muscular strain, consider also cervical radiculopathy, DVT, cellulitis, early zoster. Trial of muscle relaxant anti-inflammatory, IV Valium, IV Toradol. CT cervical spine imaging requested. Ultrasound left upper extremity venous duplex study requested. CT cervical spine no significant abnormalities. Ultrasound left upper extremity without DVT changes. Patient had apparently refused the Valium, was afraid to get over-sedated. She had relief with IV Toradol. She would like prescription for Celebrex for discharge which she has tolerated well in the past. She has Robaxin muscle relaxant medication to use at home. She feels better, would like to go home. She will continue her Robaxin muscle relaxant, prescription sent for Celebrex Discharge Plan Departure Patient Disposition: Home Clinical Impression: Left arm pain Activity Restrictions/Additional Instructions: Left arm pain, likely secondary to spasm, continue use of your Robaxin muscle relaxant. We did write free to get Valium but you declined, due to fear of over-sedation. You seemed to respond nicely to IV Toradol. You had responded to Celebrex in the past nicely, prescription for Celebrex to use the next week or [address] scanning of the cervical spine showed no significant abnormality, to account for any compression of any nerves causing left arm symptoms. Numerous previous surgeries noted. Ultrasound of the left upper extremity showed no acute clot changes. Symptoms improved. Trial of Celebrex. Continue your Robaxin medication. Follow up with your regular provider the next couple of days. Return to this/nearest emergency department for any change worsening symptoms or any concerns prior Prescriptions: New celecoxib [Celebrex] 100 mg capsule 100 mg PO BID Qty: 20 0RF No Action furosemide [Lasix] 20 mg tablet 20 mg PO QDAY PRN (Reason: edema) Qty: 90 5RF levothyroxine [Synthroid] 88 mcg tablet 88 mcg PO DAILY Qty: 90 3RF ibuprofen 600 mg tablet See Rx Instructions .ROUTE .COMPLEX Qty: 180 3RF Dose Instruction: TAKE 1 TABLET BY MOUTH TWICE A DAY NEEDED FOR PAIN Rx Instructions: TAKE 1 TABLET BY MOUTH TWICE A DAY NEEDED FOR PAIN metoprolol succinate 50 mg tablet extended release 24 hr 50 mg PO DAILY Qty: 90 3RF tolterodine 2 mg capsule,extended release 24hr 2 mg PO DAILY Qty: 30 3RF pantoprazole [Protonix] 40 mg tablet,delayed release (DR/EC) 40 mg PO DAILY Qty: 90 3RF valsartan 40 mg tablet 40 mg PO DAILY Qty: 90 3RF hydrocodone-acetaminophen 7.5-325 mg/15 mL solution 15 ml PO Q4HP PRN (Reason: pain) Qty: 300 0RF mirtazapine 7.5 mg tablet 7.5 mg PO BEDTIME Qty: 90 3RF methylprednisolone [Medrol (Daniel)] 4 mg tablets,dose pack See Rx Instructions PO PER PKG DIR Qty: 21 0RF Rx Instructions: PO PER PKG DIR albuterol sulfate 90 mcg/actuation HFA aerosol inhaler 2 puff inhalation Q4-6H PRN (Reason: shortness of breath or wheezing) Qty: 6.7 0RF guaifenesin 1,200 mg tablet extended release 12hr 1,200 mg PO BID Qty: 30 0RF benzonatate 200 mg capsule 200 mg PO TID Qty: 30 0RF azithromycin 250 mg tablet See Rx Instructions PO .COMPLEX Qty: 6 0RF Rx Instructions: For 250 mg dose pack: take 500 mg today (day 1), then 250 mg for 4 days (days 2-5) PO dexamethasone 2 mg tablet 2 - 4 mg PO Q6H PRN (Reason: pain) Qty: 7 0RF Rx Instructions: Take one to two tablet by mouth up to every six hours as needed for jaw or back pain. betamethasone dipropionate 0.05 % ointment See Rx Instructions .ROUTE .COMPLEX Qty: 15 2RF Dose Instruction: APPLY SPARINGLY TO ARMS DAILY EVERY DAY Rx Instructions: APPLY SPARINGLY TO ARMS DAILY EVERY DAY buspirone 15 mg tablet 15 mg PO BID Qty: 1 3RF methocarbamol 500 mg tablet 500 mg PO TID Qty: 90 1RF Referrals: Sharath Escalona MD [Primary Care Provider] - Stand Alone Forms: Patient Portal/API
[2024-03-17 13:09] LABS: Anisocytosis 2+; Hypochromasia 2+; Poikilocytosis 2+
--- NOTE | 2024-03-17 13:55 | DI.US.S_ITS ---
PROCEDURE: US PERIPH VENOUS UP EXTREM LT INDICATIONS: Left arm pain, history of grafting BUE, LUE pain TECHNIQUE: Real-time imaging, as well as color and pulse Doppler interrogation, was performed of the upper extremity deep veins from the inferior neck to the antecubital fossa. COMPARISON: None. FINDINGS: The internal jugular vein, visualized portions of the subclavian vein, axillary, and brachial veins are free of intraluminal thrombus. Where physically possible, the veins are normally compressible. Color and pulse Doppler demonstrate normal intraluminal flow, with expected phasicity and pulsatility. Additional scanning of the cephalic and basilic veins of the superficial system demonstrates normal compressibility, without thrombus. IMPRESSION: No findings of upper extremity deep venous thrombosis can be seen. Dictated by: Katie Leigh M.D. on 03/17/2024 at 15:31 Approved by: Katie Leigh M.D. on 03/17/2024 at 15:31
--- NOTE | 2024-03-17 13:59 | DI.CT.S_ITS ---
PROCEDURE: CT CERVICAL SPINE WO CON INDICATIONS: neck pain, left arm pain/numbness TECHNIQUE: Noncontrast 3 mm thick sections acquired from the skull base to the T4 level. Sagittal and coronal reformats were then constructed. For radiation dose reduction, the following was used: automated exposure control, adjustment of mA and/or kV according to patient size. COMPARISON: None. FINDINGS: Image quality: Excellent. Bones: No fractures or dislocations. Visualized superior ribs are intact. Straightening is present. Scattered multilevel disc bulges. No gross spinal stenosis. Soft tissues: Prevertebral soft tissues are normal in thickness. No paravertebral hematomas. No apical pneumothoraces. IMPRESSION: No visualized fracture or dislocation. Multilevel scattered disc bulges without significant foraminal narrowing Dictated by: Katie Leigh M.D. on 03/17/2024 at 14:29 Approved by: Katie Leigh M.D. on 03/17/2024 at 14:30
[2024-03-17 17:14] VITALS: BP 190/95; PULSE 56; RESP 18; O2SAT 100
== END 2024-03-17 17:55 | disposition home or self-care (01) ==
PROVIDERS: Emergency Provider Emergency Medicine; Family Provider Internal Medicine; PCP Internal Medicine
DX: M79.602 Pain in left arm (principal); R07.9 Chest pain, unspecified; M54.2 Cervicalgia; Z79.899 Other long term (current) drug therapy
CPT/HCPCS: 71045; 72125; 80053; 82550; 83690; 83735; 84484; 85025; 85610; 85730; 93005; 93971; 99284

== ENCOUNTER → 2024-06-18 15:30 | Outpatient (CLI) | payer OTHER, SELFPAY ==
--- NOTE | 2024-06-18 15:31 | DI.MG.S_ITS ---
BILATERAL DIGITAL SCREENING MAMMOGRAM 3D/2D WITH CAD: 06/18/2024 CLINICAL: Routine screening. Comparison is made to exams dated: 12/23/2021 mammogram, 01/10/2019 mammogram, and 03/16/2016 mammogram - . There are scattered areas of fibroglandular density in both breasts (category b / 25%-50% glandular tissue). Current study was also evaluated with a Computer Aided Detection (CAD) system. There are benign post operative findings in the left breast. No significant masses, calcifications, or other findings are seen in either breast. There has been no significant interval change. IMPRESSION: BENIGN There is no mammographic evidence of malignancy. A 1 year screening mammogram is recommended. Based on the Tyrer Cuzick model (a risk assessment model) the patient's lifetime risk is 6.5% and her 10 year risk is 2.6%. According to the ACR, ACS, and NCCN guidelines, an annual breast MRI exam along with mammogram is recommended if the patient's lifetime risk is 20% or greater. This exam was interpreted at Station ID: [id number]. NOTE: For mammograms, a report in lay terms will be sent to the patient. Approximately 15% of breast malignancies will not be visualized mammographically. In the management of a palpable breast mass, a negative mammogram must not discourage biopsy of a clinically suspicious lesion. Electronically Signed By: Corey morales/neelam:06/19/2024 12:35:21 letter sent: Normal Exam ACR BI-RADS Category 2: Benign Finding(s) 3342F
== END ==
LOC: MAMMO 15:30
PROVIDERS: Family Provider Internal Medicine; PCP Internal Medicine; Referring Provider Internal Medicine; Visit Provider Internal Medicine
DX: Z12.31 Encounter for screening mammogram for malignant neoplasm of breast (principal); R92.323 Mammographic fibroglandular density, bilateral breasts
CPT/HCPCS: 77063; 77067

== ENCOUNTER → 2024-08-07 16:36 | Outpatient (CLI) | payer OTHER, SELFPAY ==
[2024-08-07 17:40] LABS: Alanine Aminotransferase 16 IU/L (<35); Albumin 4.6 g/dL (3.5-5.0); Albumin Globulin Ratio 1.6 (1.0-2.8); Alkaline Phosphatase 90 U/L (38-126); Aspartate Aminotransferase 27 IU/L (14-36); BUN Creatinine Ratio 11.2 (6-22); Bilirubin Total 0.4 mg/dL (0.2-1.3); Blood Urea Nitrogen 12 mg/dL (7-17); Calcium 9.5 mg/dL (8.4-10.2); Carbon Dioxide 31 mmol/L (22-32); Chloride 100 mmol/L (98-107); Estimated Glomerular Filt Rate 59 mL/min (>60); Globulin 2.8 g/dL (1.7-4.1); Glucose 97 mg/dL (80-110); HEMOLYSIS < 15 (0-50); Potassium 4.1 mmol/L (3.4-5.1); Sodium 136 mmol/L (137-145); Total Protein 7.4 g/dL (6.3-8.2)
[2024-08-07 17:57] LABS: Free T3, Triiodothyronine Free 3.34 pg/mL (2.77-5.27); Free T4, Direct Thyroxine 1.57 ng/dL (0.78-2.19)
[2024-08-07 18:11] LABS: Thyroid Stimulating Hormone 0.764 uIU/mL (0.47-4.68)
== END ==
LOC: LAB 16:37
PROVIDERS: Family Provider Internal Medicine; PCP Internal Medicine; Referring Provider Internal Medicine; Visit Provider Internal Medicine
DX: I10 Essential (primary) hypertension (principal); E03.9 Hypothyroidism, unspecified; R07.9 Chest pain, unspecified
CPT/HCPCS: 36415; 80053; 84439; 84443; 84481

== ENCOUNTER → 2024-08-12 11:32 | Outpatient (CLI) | payer OTHER, SELFPAY ==
--- NOTE | 2024-08-12 11:33 | DI.RAD.S_ITS ---
PROCEDURE: XR CHEST 2V INDICATIONS: chest pain TECHNIQUE: 2 views of the chest were acquired. COMPARISON: [facility], CR, XR CHEST 1V, 03/17/2024, 12:15. [facility], CR, XR CHEST 2V, 02/19/2024, 16:19. FINDINGS: Surgical changes and devices: Surgical clips project over the left chest wall. Lungs and pleura: Lungs are clear. No pleural effusions or pneumothorax. Mediastinum: Mediastinal contours are normal. Heart size is normal. Bones and chest wall: No suspicious bony abnormalities. Soft tissues appear unremarkable. IMPRESSION: No acute cardiopulmonary abnormality is seen. Dictated by: Tejinder Porter M.D. on 08/12/2024 at 14:14 Approved by: Tejinder Porter M.D. on 08/12/2024 at 14:15
== END ==
PROVIDERS: Family Provider Internal Medicine; PCP Internal Medicine; Referring Provider Internal Medicine; Visit Provider Internal Medicine
DX: R07.9 Chest pain, unspecified (principal)
CPT/HCPCS: 71046

== ENCOUNTER → 2024-08-20 09:41 | Outpatient (CLI) | payer OTHER, SELFPAY ==
--- NOTE | 2024-08-20 09:42 | DI.CT.S_ITS ---
PROCEDURE: CT CHEST W CON INDICATIONS: chest pain TECHNIQUE: After the administration of intravenous contrast, 5 mm thick sections acquired from the pulmonary apices to the posterior costophrenic angles. 1 mm axial lung, 5 mm thick coronal and sagittal reformats and 7 mm axial MIP were acquired. For radiation dose reduction, the following was used: automated exposure control, adjustment of mA and/or kV according to patient size. COMPARISON: [facility], CT, CT CHEST W CON, 04/29/2021, 8:30. FINDINGS: Image quality: Diagnostic. Lower Neck: No enlarged lymph nodes. Thyroid: Not included within the [id number]. Axillae: No enlarged lymph nodes. Chest Wall: Unremarkable. Bones: Unremarkable. Lungs and Pleura: No pneumothorax or pleural effusions. No consolidation. Right upper lobe solid nodule measuring 3 mm (series 3, image 44), 2 mm solid nodule (series 3, image 56) adjacent 3 mm and 4 mm solid nodules (series 3, image 60 and 61). Numerous smaller 2 mm nodules are noted throughout the right lung and the juxtapleural spaces. Within the left upper lobe is a 4 mm solid nodule (series 3, image 97), a smaller 2 mm solid nodule within the right upper lobe (series 3, image 108) and a few additional scattered 2 mm solid nodule seen in the juxtapleural spaces are also seen involving both the left upper lobe and lower lobe. Heart: Heart size is normal. No pericardial effusion. Minimal LAD coronary artery calcification. Thoracic Vessels: The aorta and pulmonary arteries demonstrate normal size. Mediastinum and L[place]: No enlarged lymph nodes. Esophagus: No wall thickening. No hiatal hernia. Upper Abdomen: Visualized upper abdomen solid organs and bowel loops appear normal. IMPRESSION: 1. No abnormal findings to explain chest pain. 2. Numerous bilateral solid nodules measuring up to 4 mm bilaterally, not significantly changed from prior imaging on 04/29/2021. Optional CT at 12 months in high risk patients. Dictated by: Mihai Brooks M.D. on 08/20/2024 at 13:24 Approved by: Mihai Brooks M.D. on 08/20/2024 at 13:34
== END ==
PROVIDERS: Family Provider Internal Medicine; PCP Internal Medicine; Referring Provider Internal Medicine; Visit Provider Internal Medicine
DX: R07.9 Chest pain, unspecified (principal); R09.89 Other specified symptoms and signs involving the circulatory and respiratory systems; E03.9 Hypothyroidism, unspecified; I10 Essential (primary) hypertension; R91.8 Other nonspecific abnormal finding of lung field
CPT/HCPCS: 71260; Q9967

== ENCOUNTER → 2024-08-20 12:43 | Outpatient (CLI) | payer OTHER, SELFPAY | PROVIDERS: Family Provider Internal Medicine; PCP Internal Medicine; Referring Provider Internal Medicine; Visit Provider Internal Medicine | DX: R00.2 Palpitations (principal); E03.9 Hypothyroidism, unspecified; I10 Essential (primary) hypertension; R07.9 Chest pain, unspecified; R09.89 Other specified symptoms and signs involving the circulatory and respiratory systems; R91.8 Other nonspecific abnormal finding of lung field | CPT/HCPCS: 71260; 93246; 93248; Q9967 ==

== ENCOUNTER → 2024-08-27 | Outpatient (CLI) | payer OTHER, SELFPAY | PROVIDERS: Family Provider Internal Medicine; PCP Internal Medicine; Referring Provider Internal Medicine; Visit Provider Internal Medicine | DX: Z23 Encounter for immunization (principal) | CPT/HCPCS: 90471; 90656 ==

== ENCOUNTER → 2024-10-27 07:07 | Outpatient (CLI) | payer OTHER, SELFPAY ==
[2024-10-29 13:10] LABS: Fecal Immunochemical Test Negative (Negative)
== END ==
PROVIDERS: Family Provider Internal Medicine; PCP Internal Medicine; Referring Provider Internal Medicine; Visit Provider Internal Medicine
DX: Z12.11 Encounter for screening for malignant neoplasm of colon (principal)
CPT/HCPCS: 82274

== ENCOUNTER 2024-11-20 18:01 | Emergency (ER) | payer OTHER, SELFPAY ==
[2024-11-20] VITALS (9 sets, daily range): BP systolic 180–237; BP diastolic 92–117; PULSE 57–71; RESP 18–28; TEMP 37; O2SAT 91–100; BMI 30.8
--- NOTE | 2024-11-20 18:26 | EKG_ITS ---
[facility] [address] [place] [address] Test Date: 2024-11-20 Pat Name: Naye Muñoz Department: [facility] Room: Gender: Female Surgical Orderly: NIHARIKA : 1965 Requested By: Order Number: [id number] Reading MD: Aubrey Bailey Measurements Intervals [place] Rate: 58 P: 0 MS: 144 QRS: -16 QRSD: 82 T: -12 QT: 434 QTc: 426 Interpretive Statements Sinus bradycardia Minimal voltage criteria for LVH, may be normal variant ( R in aVL ) Nonspecific T wave abnormality Electronically Signed On 11-21-2024 9:41:31 PST by Aubrey Bailey
--- NOTE | 2024-11-20 18:26 | DI.RAD.S_ITS ---
PROCEDURE: XR CHEST 1V INDICATIONS: chest pain TECHNIQUE: One view of the chest was acquired. COMPARISON: [facility], CT, CT CHEST W CON, 08/20/2024, 11:11. [facility], CR, XR CHEST 2V, 08/12/2024, 11:34. [facility], CR, XR CHEST 1V, 03/17/2024, 12:15. FINDINGS: Surgical changes and devices: Multiple surgical clips. Lungs and pleura: Lungs are clear. No pleural effusions or pneumothorax. Mediastinum: Mediastinal contours appear normal. Heart size is within normal limits. Bones and chest wall: No suspicious bony lesions. Overlying soft tissues appear unremarkable. IMPRESSION: No acute cardiopulmonary abnormality is seen. Dictated by: Pascual Burnette M.D. on 11/20/2024 at 19:36 Approved by: Pascual Burnette M.D. on 11/20/2024 at 19:37
[2024-11-20 19:19] LABS: Add Manual Diff / Slide Review NO; Basophils Absolute Auto 100 /uL (0-100); Basophils Percent Auto 2.1 % (0-2); Eosinophils Absolute Auto 500 /uL (0-450); Eosinophils Percent Auto 10.3 % (2-4); Hematocrit 37.3 % (36-46); Hemoglobin 11.6 g/dL (12.0-16.0); Lymphocytes Absolute Auto 1600 /uL (1100-4500); Lymphocytes Percent Auto 35.6 % (25-40); Mean Corpuscular HGB Conc 31.3 % (30-36); Mean Corpuscular Hemoglobin 20.5 PG (26-34); Mean Corpuscular Volume 65.6 fL (80-100); Monocytes Absolute Auto 600 /uL (0-900); Monocytes Percent Auto 13.6 % (3-14); Neutrophils Absolute Auto 1800 /uL (1500-7000); Neutrophils Percent Auto 38.4 % (50-75); Platelet Count 275 X10^3/uL (150-400); Red Blood Cell Count 5.68 X10^6/uL (4.0-5.2); Red Cell Distribution Width 19.3 % (11.6-14.8); White Blood Cell Count 4.6 X10^3/uL (4.5-11.0)
[2024-11-20 19:20] LABS: INR 0.9 (0.9-1.3); Prothrombin Time 10.7 SECONDS (9.4-12.5)
[2024-11-20 19:22] LABS: PTT Partial Thromboplastin Tim 28 SECONDS (25.1-36.5)
[2024-11-20 19:28] LABS: Alanine Aminotransferase 20 IU/L (<35); Albumin 4.8 g/dL (3.5-5.0); Albumin Globulin Ratio 1.5 (1.0-2.8); Alkaline Phosphatase 107 U/L (38-126); Aspartate Aminotransferase 38 IU/L (14-36); BUN Creatinine Ratio 9.1 (6-22); Bilirubin Total 0.5 mg/dL (0.2-1.3); Blood Urea Nitrogen 8 mg/dL (7-17); Calcium 9.5 mg/dL (8.4-10.2); Carbon Dioxide 26 mmol/L (22-32); Chloride 104 mmol/L (98-107); Creatine Kinase 109 U/L (30-135); Estimated Glomerular Filt Rate > 60 mL/min (>60); Globulin 3.3 g/dL (1.7-4.1); Glucose 95 mg/dL (80-110); HEMOLYSIS 27 (0-50); Lipase 190 U/L (23-300); Magnesium 1.9 mg/dL (1.6-2.3); Potassium 4.2 mmol/L (3.4-5.1); Sodium 137 mmol/L (137-145); Total Protein 8.1 g/dL (6.3-8.2)
[2024-11-20 19:38] LABS: Microcytosis 3+
[2024-11-20 19:39] LABS: NT-proBNP (BNP-Adult 18+) 124 pg/mL (<125); Troponin I < 0.012 ng/mL (0.01-0.034)
[2024-11-20] MEDS: ASPIRIN 81 MG CHEW TAB 324 MG PO (20:04)
--- NOTE | 2024-11-20 23:07 | ED.GENADULT ---
HPI - General Adult General Chief complaint: Hypertension Stated complaint: HBP Time Seen by Provider: 11/20/24 22:34 Source: patient Mode of arrival: Ambulatory History of Present Illness HPI narrative: 59-year-old female with a history of hypertension hypothyroidism, comes into the ED from home for evaluation of headache hypertension, states that she took her antihypertensive medications today as prescribed however she checked her blood pressure noticed that it was elevated diastolic over 100 therefore she came into the ED for further evaluation treatment. She states that her headache has somewhat resolved after taking some aspirin however still having mild ache to the back of her head but denies any visual disturbances denies any chest pain shortness breath fever chills nausea vomiting abdominal pain or any other GI/ symptoms time. At time of evaluation patient NIH of 0 Related Data Previous Rx's Medication Instructions Recorded furosemide 20 mg tablet (Lasix) 20 mg PO QDAY PRN edema #90 tabs 08/31/22 tolterodine 2 mg capsule,extended 2 mg PO DAILY #30 caps 08/28/23 release 24 hr pantoprazole 40 mg tablet,delayed 40 mg PO DAILY #90 tabs 01/14/24 release (Protonix) betamethasone dipropionate 0.05 % See Rx Instructions .Route 01/17/24 topical ointment .COMPLEX #15 grams valsartan 40 mg tablet 40 mg PO DAILY #90 tabs 02/04/24 albuterol sulfate 90 mcg/actuation 2 puff inhalation Q4-6H PRN 02/19/24 aerosol inhaler shortness of breath or wheezing #6.7 grams buspirone 15 mg tablet 15 mg PO BID #180 tabs 03/25/24 Synthroid 88 mcg tablet 88 mcg PO DAILY #90 tabs 04/14/24 (levothyroxine) methocarbamol 500 mg tablet 500 mg PO TID #90 tabs 05/20/24 venlafaxine 37.5 mg 37.5 mg PO BEDTIME #30 tabs 07/02/24 tablet,extended release 24 hr Disabled Parking #1 ea 09/09/24 ibuprofen 600 mg tablet See Rx Instructions .Route 09/10/24 .COMPLEX #180 tabs metoprolol succinate 25 mg 25 mg PO BID #60 tabs 09/18/24 tablet,extended release 24 hr sodium sul 1.479 gram-potas See Rx Instructions PO PER PKG DIR 10/03/24 0.188 gram-magnes sul 0.225 gram #24 tabs tablet (Sutab) hydrocodone 7.5 mg-acetaminophen 15 ml PO Q4HP PRN pain #300 mL 10/30/24 325 mg/15 mL oral solution Allergies Allergy/AdvReac Type Severity Reaction Status Date / Time citalopram [CITALOPRAM] Allergy Severe CHEST PAIN Verified 09/08/24 10:11 propranolol [PROPRANOLOL] Allergy Severe CHEST PAIN Verified 09/08/24 10:11 AND HEADACHE succinylcholine Allergy Severe rhabdomyolo Verified 09/08/24 10:11 [SUCCINYLCHOLINE] sis DEBORA Inhibitors Allergy Mild COUGHING Verified 09/08/24 10:11 [DEBORA INHIBITORS] amoxicillin [AMOXICILLIN] Allergy Mild RASH Verified 09/08/24 10:11 lisinopril [LISINOPRIL] Allergy Mild COUGHING Verified 09/08/24 10:11 oxycodone [OXYCODONE] Allergy Mild headache Verified 09/08/24 10:11 oxymetazoline Allergy Mild headache Verified 09/08/24 10:11 [From Afrin (oxymetazoline)] paroxetine [PAROXETINE] Allergy Mild SEVERE Verified 09/08/24 10:11 HEADACHE Penicillins [PENICILLINS] Allergy Mild RASH Verified 09/08/24 10:11 pravastatin [PRAVASTATIN] Allergy Mild MUSCLE Verified 09/08/24 10:11 WEAKNESS prednisone [PREDNISONE] Allergy Mild PROJECTILE Verified 09/08/24 10:11 VOMITING sertraline [SERTRALINE] Allergy Mild WT GAIN Verified 09/08/24 10:11 simvastatin [SIMVASTATIN] Allergy Mild LEG PAIN Verified 09/08/24 10:11 Sulfa (Sulfonamide Allergy Mild JOINT PAIN Verified 09/08/24 10:11 Antibiotics) UPPER EXT. [SULFA (SULFONAMIDE ANTIBIOTICS)] amlodipine AdvReac Intermediate faitgue Verified 09/08/24 10:11 hydralazine AdvReac Intermediate Chest Pain Verified 09/08/24 10:49 losartan AdvReac Intermediate leg Verified 09/08/24 10:11 weakness quinapril AdvReac Intermediate abdominal Verified 09/08/24 10:11 pain, nausea, bloating duloxetine AdvReac Mild weight gain Verified 09/08/24 10:11 Review of Systems Review of Systems Narrative: General: Denies fever, chills, weight loss HEENT: Positive headache, denies eye drainage, eye irritation, head trauma, sore throat, voice change Cardiovascular: Positive hypertension, Denies any chest pain, palpitations, shortness of breath, tachycardia Respiratory: Denies any shortness of breath, cough, wheeze, stridor GI/: Denies any abdominal pain, nausea, vomiting, diarrhea, bright red blood per rectum, melanotic stools, urinary frequency, urinary retention, dysuria, hematuria MSK: Denies any joint pain, muscle pains, swelling Skin: Denies any rashes, lesions, discoloration Neuro: Denies any headache, lightheadedness, dizziness, fainting, weakness Psych: Denies SI/HI Patient History Medical History (Updated 11/21/24 @ 00:16 by Fernando Davidson DO) Night sweats Lumbar degenerative disc disease Lumbar facet arthropathy Lumbar spondylosis Scoliosis Lumbar radiculopathy Myofascial pain Dorsalgia Foot pain (~2012) Chickenpox Anemia Fibroids (~2002) Hemorrhoids Atrial fibrillation (~2009) Chronic pain syndrome (~2012) Hx of tongue cancer Hypothyroidism (~1994) Essential hypertension (10/19/15) Depression (09/15/14) Anxiety (05/12/14) GERD (gastroesophageal reflux disease) Surgical History Anesthesia S/P partial glossectomy 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 Social History Smoking Status: Never smoker Smoking Status: Never smoker alcohol intake frequency: 0-2 drinks per day Exam Narrative Exam Narrative: General: Cooperative, comfortable, well-developed, not in acute distress HEENT: Normocephalic, atraumatic, PERRLA, normal sclera, eyelids normal, Neck: Active full range of motion, atraumatic Chest: Normal to inspection, negative crepitus, no overlying erythema ecchymosis Respiratory: Normal respiratory effort, not in acute respiratory distress, clear to auscultation bilaterally negative cough, wheeze, tachypnea, rhonchi, rales Cardiology: Regular rate rhythm negative gallop, murmur, rubs GI/: Normal to inspection, soft, nonrigid, no tenderness to palpation, exam deferred MSK: Full range of active range of motion of all 4 extremities, atraumatic Skin: No rashes lesions noted Neuro: NIH of 0, Alert awake oriented x3, moves all 4 extremities spontaneously, cranial nerves intact, able to answer all questions appropriately follows commands appropriately Psych: Cooperative, negative suicidal or homicidal ideations Initial Vital Signs Initial Vital Signs: Vital Signs Temperature 98.6 F 11/20/24 18:20 Pulse Rate 64 11/20/24 18:20 Respiratory Rate 20 11/20/24 18:20 Blood Pressure 237/109 H 11/20/24 18:20 Pulse Oximetry 100 11/20/24 18:20 Oxygen Delivery Method Room Air 11/20/24 18:20 Course Orders Ordered: ED Orders 11/20/24 18:26 XR chest 1V Stat EKG-12 Lead Stat 11/20/24 19:02 Complete Blood Count AUTO DIFF Stat Comprehensive Metabolic Panel Stat Lipase Stat Magnesium Stat NT-proBNP (BNP-Adult 18+) Stat PTT Partial Thromboplastin Moi Stat Prothrombin Time INR Stat Troponin & CK Cardiac Panel Stat Discontinued Medications Acetaminophen (Acetaminophen 325 Mg Tablet) 650 mg PO NOW ONE Stop: 11/20/24 23:07 Last Admin: 11/20/24 23:43 Dose: Not Given Documented By: REX Aspirin (Aspirin 81 Mg Chew Tab) 324 mg PO NOW ONE Stop: 11/20/24 18:27 Last Admin: 11/20/24 20:04 Dose: 324 mg Documented By: BOBBY Dexamethasone (Dexamethasone 10 Mg/Ml Vial) 10 mg IV NOW ONE Stop: 11/20/24 23:07 Last Admin: 11/20/24 23:43 Dose: Not Given Documented By: REX Diphenhydramine HCl (Diphenhydramine 50 Mg/Ml Vial) 25 mg IV NOW ONE Stop: 11/20/24 23:07 Last Admin: 11/20/24 23:43 Dose: Not Given Documented By: REX Metoclopramide HCl (Metoclopramide 10 Mg/2 Ml Inj) 10 mg IV NOW ONE Stop: 11/20/24 23:07 Last Admin: 11/20/24 23:43 Dose: Not Given Documented By: REX Vital Signs Vital signs: Vital Signs - 8 hr 11/20/24 18:20 11/20/24 19:47 11/20/24 21:16 Temperature 98.6 F Pulse Rate 64 62 Respiratory Rate 20 Blood Pressure 237/109 H 180/110 H 217/117 H Pulse Oximetry 100 Oxygen Delivery Method Room Air 11/20/24 22:14 11/20/24 22:26 11/20/24 22:27 Temperature Pulse Rate 59 L 71 68 Respiratory Rate 18 Blood Pressure 211/93 H Pulse Oximetry 99 91 97 Oxygen Delivery Method Room Air 11/20/24 22:27 11/20/24 22:30 11/20/24 22:36 Temperature Pulse Rate 57 L 62 Respiratory Rate Blood Pressure 236/112 H Pulse Oximetry 98 99 Oxygen Delivery Method 11/20/24 22:36 11/20/24 23:00 11/20/24 23:00 Temperature Pulse Rate 63 Respiratory Rate 28 H Blood Pressure 199/92 H 214/99 H Pulse Oximetry 99 Oxygen Delivery Method Medical Decision Making Differential Diagnosis Differential Diagnosis: Essential hypertension, CVA, stroke, electrolyte abnormality, ACS Lab Data 11/20/24 19:02 11/20/24 19:02 Labs: Lab Results 11/20/24 Range/Units 19:02 WBC 4.6 (4.5-11.0) X10^3/uL RBC 5.68 H (4.0-5.2) X10^6/uL Hgb 11.6 L (12.0-16.0) g/dL Hct 37.3 (36-46) % MCV 65.6 L (80-100) fL MCH 20.5 L (26-34) PG MCHC 31.3 (30-36) % RDW 19.3 H (11.6-14.8) % Plt Count 275 (150-400) X10^3/uL Neut % (Auto) 38.4 L (50-75) % Lymph % (Auto) 35.6 (25-40) % Scott % (Auto) 13.6 (3-14) % Eos % (Auto) 10.3 H (2-4) % Baso % (Auto) 2.1 H (0-2) % Neut # (Auto) 1800 (3614-9153) /uL Lymph # (Auto) 1600 (0083-9828) /uL Scott # (Auto) 600 (0-900) /uL Eos # (Auto) 500 H (0-450) /uL Baso # (Auto) 100 (0-100) /uL RBC Morphology See below Microcytosis 3+ H PT 10.7 (9.4-12.5) SECONDS INR 0.9 (0.9-1.3) APTT 28 (25.1-36.5) SECONDS Sodium 137 (137-145) mmol/L Potassium 4.2 (3.4-5.1) mmol/L Chloride 104 (98-107) mmol/L Carbon Dioxide 26 (22-32) mmol/L BUN 8 (7-17) mg/dL Creatinine 0.88 (0.52-1.04) mg/dL Estimated GFR > 60 (>60) mL/min BUN/Creatinine Ratio 9.1 (6-22) Glucose 95 (80-110) mg/dL Calcium 9.5 (8.4-10.2) mg/dL Magnesium 1.9 (1.6-2.3) mg/dL Total Bilirubin 0.5 (0.2-1.3) mg/dL AST 38 H (14-36) IU/L ALT 20 (<35) IU/L Alkaline Phosphatase 107 (38-126) U/L Total Creatine Kinase 109 (30-135) U/L Troponin I < 0.012 (0.01-0.034) ng/mL NT-Pro-B Natriuret Pep 124 (<125) pg/mL Total Protein 8.1 (6.3-8.2) g/dL Albumin 4.8 (3.5-5.0) g/dL Globulin 3.3 (1.7-4.1) g/dL Albumin/Globulin Ratio 1.5 (1.0-2.8) Lipase 190 (23-300) U/L Imaging Data Chest x-ray: Radiologist's Impression: [address] [address] XRay Report Signed Patient: Naye Muñoz MR#: [id number] : 1965 Acct:[id number] Age/Sex: 59 / F Date of Service: 11/20/24 Loc: ED Accession Number: [id number] Procedure: XR chest 1V Ordering Provider: Fernando Davidson D.O. PROCEDURE: XR CHEST 1V INDICATIONS: chest pain TECHNIQUE: One view of the chest was acquired. COMPARISON: [facility], CT, CT CHEST W CON, 08/20/2024, 11:11. [facility], CR, XR CHEST 2V, 08/12/2024, 11:34. [facility], CR, XR CHEST 1V, 03/17/2024, 12:15. FINDINGS: Surgical changes and devices: Multiple surgical clips. Lungs and pleura: Lungs are clear. No pleural effusions or pneumothorax. Mediastinum: Mediastinal contours appear normal. Heart size is within normal limits. Bones and chest wall: No suspicious bony lesions. Overlying soft tissues appear unremarkable. IMPRESSION: No acute cardiopulmonary abnormality is seen. ECG Data Interpretation: EKG interpreted by ED physician sinus bradycardia at 58 beats per minute QTC [address] changes no STEMI MDM Narrative Medical decision making narrative: 59-year-old female with a history of hypertension GERD comes into the ED for evaluation of elevated blood pressure with a headache. Patient had lab work imaging performed here patient with EKG nonischemic troponin negative patient without any leukocytosis, creatinine normal. Patient NIH of 0. Patient troponin negative, given the fact patient was having symptomatic hypertension in the setting of a headache however no focal deficits recommendation to obtain CT head was given to the patient however she states that she feels fine she states that she would rather go home at this time, I informed her that she is still having hypertension systolics greater than 200, states that she feels better she states that the blood pressure did go down earlier when she 1st came in and it is just up now because she was walking. She denies any focal deficits/weakness headache visual disturbances chest pain shortness of breath, she states that she does not want any medications or CT scan she states that she wants to just go home and go to sleep and states that she would rather just follow up with her primary care doctor. I informed her that if she were to do this this would be leaving against medical advice, she is A&O x4 family member at bedside was there and decision was made that patient will be leaving against medical advice We have discussed and explained the clinical examination, laboratory results, and imaging studies so far with the patient, both with full medical disclosure and layman's terms. The patient is an adult and is of sound mind. The patient appears to have intact insight, judgement and reason. Is alert and oriented x4. The patient is clinically sober and appears free from any distracting injury. The patient verbalized understanding. Despite incomplete workup the patient expresses a wish to leave. We have explained to the patient that leaving now would be leaving against medical advice. We have explained that leaving against medical advice without a complete workup and/or identification of pathology may lead to worsening of symptoms and even the possibility of disability or . The patient understands that the only way to safely avoid this is to complete the workup as leaving the grounds of the hospital would be leaving the care of trained medical records assistant, specialists, and resources that were available to the patient. We have expressed the need for the patient to stay in the hospital, considering the constellation of symptoms of breath the patient here. Despite this lengthy conversation the patient still expresses desire to leave against medical advice and demonstrates a full capacity to make their own medical decisions. We have informed the patient to call 911 or to seek immediate medical attention at their nearest emergency department if there are symptoms were to worsen/or change their mind. Discharge Plan Departure Patient Disposition: Left Against Medical Advice Clinical Impression: HTN (hypertension), Left against medical advice Activity Restrictions/Additional Instructions: We have discussed and explained the clinical examination, laboratory results, and imaging studies so far with the patient, both with full medical disclosure and layman's terms. The patient is an adult and is of sound mind. The patient appears to have intact insight, judgement and reason. Is alert and oriented x4. The patient is clinically sober and appears free from any distracting injury. The patient verbalized understanding. Despite incomplete workup the patient expresses a wish to leave. We have explained to the patient that leaving now would be leaving against medical advice. We have explained that leaving against medical advice without a complete workup and/or identification of pathology may lead to worsening of symptoms and even the possibility of disability or . The patient understands that the only way to safely avoid this is to complete the workup as leaving the grounds of the hospital would be leaving the care of trained medical records assistant, specialists, and resources that were available to the patient. We have expressed the need for the patient to stay in the hospital, considering the constellation of symptoms of breath the patient here. Despite this lengthy conversation the patient still expresses desire to leave against medical advice and demonstrates a full capacity to make their own medical decisions. We have informed the patient to call 911 or to seek immediate medical attention at their nearest emergency department if there are symptoms were to worsen/or change their mind. Prescriptions: No Action furosemide [Lasix] 20 mg tablet 20 mg PO QDAY PRN (Reason: edema) Qty: 90 5RF tolterodine 2 mg capsule,extended release 24hr 2 mg PO DAILY Qty: 30 3RF pantoprazole [Protonix] 40 mg tablet,delayed release (DR/EC) 40 mg PO DAILY Qty: 90 3RF valsartan 40 mg tablet 40 mg PO DAILY Qty: 90 3RF levothyroxine [Synthroid] 88 mcg tablet 88 mcg PO DAILY Qty: 90 3RF methocarbamol 500 mg tablet 500 mg PO TID Qty: 90 0RF (DME) Disabled Parking See Rx Instructions .ROUTE .MEDSUPPLY Qty: 1 0RF Rx Instructions: Patient qualifies for disabled parking as per the attached form. ibuprofen 600 mg tablet See Rx Instructions .ROUTE .COMPLEX Qty: 180 3RF Dose Instruction: TAKE 1 TABLET BY MOUTH TWICE A DAY NEEDED FOR PAIN Rx Instructions: TAKE 1 TABLET BY MOUTH TWICE A DAY NEEDED FOR PAIN metoprolol succinate 25 mg tablet extended release 24 hr 25 mg PO BID Qty: 60 3RF Sutab 1.479-0.188- 0.225 gram tablet See Rx Instructions PO PER PKG DIR Qty: 24 0RF Rx Instructions: take as directed by Physician hydrocodone-acetaminophen 7.5-325 mg/15 mL solution 15 ml PO Q4HP PRN (Reason: pain) Qty: 300 0RF albuterol sulfate 90 mcg/actuation HFA aerosol inhaler 2 puff inhalation Q4-6H PRN (Reason: shortness of breath or wheezing) Qty: 6.7 0RF betamethasone dipropionate 0.05 % ointment See Rx Instructions .ROUTE .COMPLEX Qty: 15 2RF Dose Instruction: APPLY SPARINGLY TO ARMS DAILY EVERY DAY Rx Instructions: APPLY SPARINGLY TO ARMS DAILY EVERY DAY buspirone 15 mg tablet 15 mg PO BID Qty: 180 3RF venlafaxine 37.5 mg tablet extended release 24hr 37.5 mg PO BEDTIME Qty: 30 3RF Referrals: Sharath Escalona MD [Primary Care Provider] - Stand Alone Forms: Patient Portal/API, Against Medical Advice
--- NOTE | 2024-11-20 23:34 | PC.NURSE ---
Pt now states that she is feeling better and wants to go home. Declined meds for headache. Dr Davidson at bedside.
== END 2024-11-20 23:50 | disposition left against medical advice (07) ==
PROVIDERS: Emergency Provider Student in an Organized Health Care Education/Training Program; Family Provider Internal Medicine; PCP Internal Medicine
DX: I10 Essential (primary) hypertension (principal); R07.9 Chest pain, unspecified; R51.9 Headache, unspecified; R29.700 NIHSS score 0; Z88.2 Allergy status to sulfonamides; Z88.0 Allergy status to penicillin
CPT/HCPCS: 36415; 71045; 80053; 82550; 83690; 83735; 83880; 84484; 85025; 85610; 85730; 93005; 99284

== ENCOUNTER → 2025-05-05 16:24 | Outpatient (CLI) | payer OTHER, SELFPAY ==
[2025-05-05 17:35] LABS: Hemoglobin A1C% w Est Avg Glu 6.3 % (4.0-6.0)
[2025-05-05 17:37] LABS: Alanine Aminotransferase 17 IU/L (<35); Albumin 4.6 g/dL (3.5-5.0); Albumin Globulin Ratio 1.8 (1.0-2.8); Alkaline Phosphatase 76 U/L (38-126); Blood Urea Nitrogen 13 mg/dL (7-17); Calcium 10.0 mg/dL (8.4-10.2); Carbon Dioxide 29 mmol/L (22-32); Chloride 103 mmol/L (98-107); Creatine Kinase 106 U/L (30-135); Estimated Glomerular Filt Rate > 60 mL/min (>60); Globulin 2.6 g/dL (1.7-4.1); Glucose 94 mg/dL (70-99); HEMOLYSIS < 15 (0-50); Potassium 4.6 mmol/L (3.4-5.1); Sodium 138 mmol/L (137-145); Total Protein 7.2 g/dL (6.3-8.2)
[2025-05-05 18:01] LABS: TSH w/ Reflex to FT4 0.49 uIU/mL (0.47-4.68)
== END ==
PROVIDERS: PCP Internal Medicine; Referring Provider Internal Medicine; Visit Provider Internal Medicine
DX: E03.9 Hypothyroidism, unspecified (principal); I10 Essential (primary) hypertension; R73.9 Hyperglycemia, unspecified; M79.10 Myalgia, unspecified site
CPT/HCPCS: 36415; 80053; 82550; 83036; 84443; 85651; 86140

== ENCOUNTER → 2025-08-24 09:09 | Outpatient (CLI) | payer OTHER, SELFPAY ==
--- NOTE | 2025-08-24 09:10 | DI.RAD.S_ITS ---
PROCEDURE: XR CHEST 2V
== END ==
PROVIDERS: PCP Internal Medicine; Referring Provider Chiropractor; Visit Provider Chiropractor
DX: J06.9 Acute upper respiratory infection, unspecified (principal)
CPT/HCPCS: 71046

== ENCOUNTER → 2025-10-09 09:12 | Outpatient (CLI) | payer OTHER, SELFPAY ==
[2025-10-09 09:46] LABS: Add Manual Diff / Slide Review NO; Hematocrit 35.6 % (36-46); Hemoglobin 11.1 g/dL (12.0-16.0); Lymphocytes Absolute Auto 1100 /uL (1100-4500); Mean Corpuscular HGB Conc 31.3 % (30-36); Mean Corpuscular Hemoglobin 21.2 PG (26-34); Mean Corpuscular Volume 67.6 fL (80-100); Platelet Count 217 X10^3/uL (150-400)
[2025-10-09 10:03] LABS: Alanine Aminotransferase 18 IU/L (<35); Albumin 4.5 g/dL (3.5-5.0); Albumin Globulin Ratio 1.6 (1.0-2.8); Alkaline Phosphatase 65 U/L (38-126); Blood Urea Nitrogen 13 mg/dL (7-17); Calcium 9.7 mg/dL (8.4-10.2); Carbon Dioxide 29 mmol/L (22-32); Chloride 105 mmol/L (98-107); Cholesterol 233 mg/dL (140-199); Estimated Glomerular Filt Rate > 60 mL/min (>60); Globulin 2.8 g/dL (1.7-4.1); Glucose 96 mg/dL (70-99); HDL Cholesterol 83 mg/dL (40-60); HEMOLYSIS < 15 (0-50); Potassium 4.6 mmol/L (3.4-5.1); Sodium 140 mmol/L (137-145); Total Protein 7.3 g/dL (6.3-8.2); Triglycerides 123 mg/dL (35-150)
[2025-10-09 10:17] LABS: Free T4, Direct Thyroxine 1.32 ng/dL (0.78-2.19)
[2025-10-09 12:12] LABS: Anisocytosis 1+; Microcytosis 1+
[2025-10-09 16:39] LABS: Thyroid Stimulating Hormone 0.946 uIU/mL (0.47-4.68)
== END ==
PROVIDERS: PCP Internal Medicine; Referring Provider Internal Medicine; Visit Provider Internal Medicine
DX: I10 Essential (primary) hypertension (principal); R06.09 Other forms of dyspnea
CPT/HCPCS: 36415; 80053; 80061; 84439; 84443; 85025